=== PATIENT | male | born 1960 | race Caucasian/White ===

== ENCOUNTER 2016-10-23 21:17 | Inpatient (IN) | payer OTHER, MEDICARE ==
[~2016-10-23] VITALS: Ht 170.2 cm; Wt 60.0 kg
[2016-10-23] MEDS ORDERED: SODIUM CHLORIDE 0.9% 1L BAG IV* STA (21:19)
[2016-10-23] MEDS ORDERED: KETOROLAC 30 MG INJ IV STA (21:54)
[2016-10-23] MEDS ORDERED: SIMV20TA97 PO (22:05)
[2016-10-23] MEDS ORDERED: AMLO5TAB4 PO (22:06)
[2016-10-23] MEDS ORDERED: METO50TA16 PO (22:06)
[2016-10-23] MEDS ORDERED: QUET100T25 PO (22:07)
[2016-10-23] MEDS ORDERED: TRAZ150T65 PO (22:08)
[2016-10-23 22:19] LABS: BASOPHILS % 0.1 % (0.0-2.0); EOSINOPHILS # 0.2 10^3/ul (0.0-0.5); EOSINOPHILS % 0.7 % (0.0-7.0); HEMOGLOBIN 10.5 g/dl (14.0-18.0); LYMPHOCYTES % 4.5 % (15.0-51.0); MEAN CORPUSCULAR HEMOGLOBIN 25.2 pg (29.0-33.0); MEAN CORPUSCULAR HGB CONC 32.9 g/dl (32.0-37.0); MEAN CORPUSCULAR VOLUME 76.6 fl (82.0-101.0); MEAN PLATELET VOLUME 10.3 fl (7.4-10.4); MONOCYTE # 1.2 10^3/ul (0.3-0.9); MONOCYTES % 5.2 % (0.0-11.0); NEUTROPHIL # 20.8 10^3/ul (1.6-7.5); NEUTROPHILS % 89.5 % (39.0-77.0); PLATELET COUNT 382 10^3/UL (140-440); RED BLOOD COUNT 4.18 10^6/ul (4.70-6.10); RED CELL DISTRIBUTION WIDTH 18.3 % (11.5-14.5); UNCORRECTED WBC 23.2 10^3/ul (4.8-10.8); WHITE BLOOD COUNT 23.2 10^3/ul (4.8-10.8)
[2016-10-23 22:20] LABS: CONDITION 1; LH ANALYZER COMMENTS 1; SUSPECT 1
[2016-10-23 22:25] LABS: ALBUMIN 3.8 g/dl (3.3-4.9); CHLORIDE 86 mmol/L (97-110); POTASSIUM 3.7 mmol/L (3.5-5.1); SODIUM 132 mmol/L (135-144)
[2016-10-23 22:27] LABS: AMYLASE 36 U/L (11-123)
[2016-10-23 22:28] LABS: ALANINE AMINOTRANSFERASE 50 IU/L (13-69); ALBUMIN/GLOBULIN RATIO 0.76; ALKALINE PHOSPHATASE 220 IU/L (42-121); ANION GAP 26 (8-16); ASPARTATE AMINO TRANSFERASE 57 IU/L (15-46); BILIRUBIN,INDIRECT 0.3 mg/dl (0-1.1); BILIRUBIN,TOTAL 0.3 mg/dl (0.2-1.3); BLOOD UREA NITROGEN 36 mg/dl (7-20); CALCIUM 10.5 mg/dl (8.4-10.2); CARBON DIOXIDE 24 mmol/L (21-31); CREATININE 1.26 mg/dl (0.61-1.24); GLUCOSE 89 mg/dl (70-220); TOTAL PROTEIN 8.8 g/dl (6.1-8.1)
--- NOTE | 2016-10-23 22:30 | RADRPT ---
PROCEDURE: XR Chest. CLINICAL INDICATION: Chest pain TECHNIQUE: Single frontal view of the chest. COMPARISON: No priorchest radiograph. FINDINGS: The lungs are clear. No pleural effusion or pneumothorax. The cardiomediastinal silhouette is unremarkable. Old healed appearing bilateral mid and lower rib fractures are noted. Vascular calcifications of the aorta are present compatible with atherosclerosis. IMPRESSION: No acute air space infiltrates. RPTAT: AADD .Beny Otto MD, MD Date Time Electronically viewed and signed by .Beny Otto MD, MD on 10/23/2016 22:30 .B/
[2016-10-23] MEDS ORDERED: PIPER-TAZO 3.375 GM IV (PMX) 100 ML IVPB ONE (22:35)
[2016-10-23] MEDS ORDERED: VANCOMYCIN 1 GM (PMX) 250 ML IVPB ONE (22:35)
[2016-10-23] MEDS ORDERED: CLINDAMYCIN 900 MG/D5W (PMX) 50 ML IVPB ONE (22:35)
[2016-10-23 22:39] LABS: TROPONIN-I < 0.010 ng/ml (0.00-0.12)
[2016-10-23] MEDS ORDERED: ONDANSETRON 4 MG INJ IV ONE (22:40)
[2016-10-23] MEDS ORDERED: HYDROmorphONE 1 MG/ML SYG IV ONE (22:40)
--- NOTE | 2016-10-23 22:52 | ERA ---
ER Documentation Chief Complaint Date/Time DATE: 10/23/16 TIME: 22:48 Chief Complaint WEAKNESS AND "FLU-RANDY" X 3 WEEKS. GOUT FLARE UP IN FEET, KNEES HPI This is a very pleasant 55-year-old male with a known history of hypertension. The patient indicates that over the past 5 years he has had multiple gouty flareups of his right toe and hands. Over the past 3 weeks he has had significant pain over the right toe bilateral knees bilateral elbows and hands. He states that prior to arrival the pain worsened and he had significant swelling and redness of the right big toe. The patient indicates he has had a tactile fever with shaking and chills. He has had generalized weakness with a decrease in appetite. He denies any chest pain or pressure that radiates to the neck or back or jaw. He has no shortness of breath at rest or exertion. ROS All systems reviewed and are negative except as per history of present illness. Medications Home Meds Reported Medications Trazodone Hcl* (Trazodone Hcl*) 150 Mg Tablet, 150 MG PO QHS, #30 TAB 10/23/16 Quetiapine Fumarate* (Seroquel*) 100 Mg Tablet, 150 MG PO DAILY, #30 TAB 10/23/16 Amlodipine Besylate* (Norvasc*) 5 Mg Tablet, 5 MG PO DAILY, TAB 10/23/16 Metoprolol Succinate* (Toprol XL*) 50 Mg Tab.er.24h, 50 MG PO DAILY, #30 TAB 10/23/16 Simvastatin* (Zocor*) 20 Mg Tablet, 20 MG PO QHS, #30 TAB 10/23/16 Allergies Allergies: Coded Allergies: No Known Allergy (Unverified , 10/23/16) Physical Exam Vitals Vital Signs Date Time Temp Pulse Resp B/P Pulse Ox O2 Delivery O2 Flow Rate FiO2 10/23/16 21:23 98.1 126 20 140/86 98 Physical Exam Constitutional:Well-developed. Well-nourished. HEENT:Normocephalic. Atraumatic.Pupils were equal round reactive to light. Dry mucous membranes.No tonsillar exudates. Neck: No nuchal rigidity. No lymphadenopathy. No posterior cervical spine tenderness or step-offs. Respiratory: Not using accessory muscles of respiration.Lungs were clear to auscultation bilaterally. No rhonchi. No rales. No wheezing. Cardiovascular: Regular rate regular rhythm.No murmurs. No rubs were appreciated.S1, S2 normal. Distal pulses are palpable 2+ bilaterally. GI: Abdomen was soft. Nontender. Non Distended. No pulsatile abdominal masses or bruits. No rebound. No guarding. Bowel sounds were present and normal. Muscle skeletal: Full range of motion of both the upper and lower extremities bilaterally.Normal muscle tone.No assymetrical calf tenderness or swelling. Skin: No petechia, no purpura. No lesions on the palms or the soles of the feet. No maculopapular rash. Significant swelling erythremia warmness over the dorsal aspect of the right big toe. Arthritic changes of the bilateral hands. Bursitis of the left and the right elbow. NEURO: Patient was alert, awake, orientated x3.No facial droop. Gait observed and normal with no ataxia.Speech had regular rate and rhythm. No focal neurological deficits. Result Diagram: 10/23/16219910/23/162199 Results 24 hrs Laboratory Tests Test 10/23/16 22:00 Alanine Aminotransferase (ALT/SGPT) 50IU/L Albumin 3.8g/dl Albumin/Globulin Ratio 0.76 Alkaline Phosphatase 220IU/L Amylase Level 36U/L Anion Gap 26 Aspartate Amino Transf (AST/SGOT) 57IU/L Basophils # 0.010^3/ul Basophils % 0.1% Blood Morphology Comment Blood Urea Nitrogen 36mg/dl Calcium Level 10.5mg/dl Carbon Dioxide Level 24mmol/L Chloride Level 86mmol/L Creatinine 1.26mg/dl Direct Bilirubin 0.00mg/dl Eosinophils # 0.210^3/ul Eosinophils % 0.7% Globulin 5.00g/dl Glucose Level 89mg/dl Hematocrit 32.0% Hemoglobin 10.5g/dl Indirect Bilirubin 0.3mg/dl Lactic Acid Level 2.1mmol/L Lipase 120U/L Lymphocytes # 1.010^3/ul Lymphocytes % 4.5% Mean Corpuscular Hemoglobin 25.2pg Mean Corpuscular Hemoglobin Concent 32.9g/dl Mean Corpuscular Volume 76.6fl Mean Platelet Volume 10.3fl Monocytes # 1.210^3/ul Monocytes % 5.2% Neutrophils # 20.810^3/ul Neutrophils % 89.5% Nucleated Red Blood Cells # 0.010^3/ul Nucleated Red Blood Cells % 0.0/100WBC Platelet Count 21975^3/UL Potassium Level 3.7mmol/L Red Blood Count 4.1810^6/ul Red Cell Distribution Width 18.3% Sodium Level 132mmol/L Total Bilirubin 0.3mg/dl Total Protein 8.8g/dl Troponin I < 0.010ng/ml Uric Acid 14.0mg/dl White Blood Count 23.210^3/ul Current Medications Medications (Trade) Dose Ordered Sig/Joshua Route PRN Reason Start Time Stop Time Status Last Admin Dose Admin Sodium Chloride (NS) 2,170 ml BOLUS OVER 2 HOURS STAT IV* 10/23/16 21:19 10/23/16 21:21 DC 10/23/16 22:03 Ketorolac Tromethamine 30 mg 30 mg ONCE STAT IV 10/23/16 21:54 10/23/16 21:55 DC 10/23/16 22:03 Vancomycin HCl 250 ml @ 125 mls/hr ONCE ONCE IVPB 10/23/16 22:35 10/24/16 00:34 Clindamycin HCl/ Dextrose 50 ml @ 50 mls/hr ONCE ONCE IVPB 10/23/16 22:35 10/23/16 23:34 DC Piperacillin Sod/ Tazobactam Sod (Zosyn 3.375gm/ 100 ml (Pmx)) 100 ml @ 100 mls/hr ONCE ONCE IVPB 10/23/16 22:35 10/23/16 23:34 DC 10/23/16 23:22 Hydromorphone HCl (Dilaudid) 1 mg ONCE ONCE IV 10/23/16 22:40 10/23/16 22:41 DC 10/23/16 23:22 Ondansetron HCl (Zofran Inj) 4 mg ONCE ONCE IV 10/23/16 22:40 10/23/16 22:41 DC 10/23/16 23:22 Ondansetron HCl (Zofran Inj) 4 mg ER BRIDGE PRN IV NAUSEA AND/OR VOMITING 10/24/16 00:00 10/24/16 23:59 Acetaminophen (Tylenol Tab) 650 mg ER BRIDGE PRN PO MILD PAIN/FEVER 10/24/16 00:00 10/24/16 23:59 Procedures/MDM The patient presented to the emergency department with a spreading erythematous superficial infection of the skin and subcutaneous tissues of the right big toe with suspected overlying gout. My differential diagnosis included but was not limited to necrotizing fasciitis, lymphangitis, thrombophlebitis, deep vein thrombosis, allergic reaction, neoplasm, gout or abscess. Predisposing factors of the progressive spread of erythema, warmth, pain and tenderness was considered such as lymphedema, tinea pedis, open wounds, prior trauma or surgery, pre-existing skin lesion (furuncle), retained foreign body, injection drug use or vascular or immune compromise. The patient was placed on antibiotics to cover Staphylococcus aureus, including resistant strains such as community-acquired methicillin-resistant S. aureus. The patient was given IV vancomycin and Zosyn and clindamycin. The patient received IV Toradol as well as morphine and Zofran for analgesic control. The patient's uric acid was elevated at 14 and I did feel the patient' s symptoms were result of gout however cannot rule out septic arthritis which is why the patient was started on broad-spectrum antibiotics as he had leukocytosis. 12 Lead EKG tracing ordered and reviewed by myself showed: Sinus tachycardia 116 bpm and no arrhythmia. TN interval normal. QRS duration normal. No ST segment elevation No ST segment depression. No changes consistent with acute ischemia. The patient's primary care physician is Dr. Rahul Krishnamurthy and Dr. Armstrong who was on-call for Dr. Greenfield indicated to admit the patient to the hospitalist so therefore Dr. Caicedo will be the admitting physician. The patient will be admitted in serious condition to the telemetry service with an anticipated stay of greater than 2 midnights Departure Diagnosis: Primary Impression: Prerenal azotemia Additional Impressions: Gouty arthritis of toe of right foot SIRS (systemic inflammatory response syndrome) Condition: Serious RORY MONIQUE Oct 23, 2016 22:51 I considered further perfusion assessment with CVP measurement, SCVO2, bedside ultrasound volume assessment, passive leg raise, trial of further fluid bolus. And preceded with [XOXOXO] Accepting Care Team: Current data and ongoing care discussed. Time: Time of admission Primary Provider: [XOXOXO] Consulting: [XOXOXO] Outstanding Data: none RORY MONIQUE Oct 23, 2016 22:51
[2016-10-24] VITALS (14 sets, daily range): BP systolic 124–150; BP diastolic 67–92; PULSE 66–101; RESP 18–20; TEMP 98; Ht 170.2 cm; Wt 60.0 kg
[2016-10-24] MEDS ORDERED: ONDANSETRON 4 MG INJ IV PRN
[2016-10-24] MEDS ORDERED: SOD CHLORIDE 0.9% 1,000 ML IV SCH (00:46)
--- NOTE | 2016-10-24 00:46 | HP ---
Date/Time of Note Date/Time of Note DATE: 10/24/16 TIME: 00:31 Assessment/Plan VTE Prophylaxis VTE Prophylaxis Intervention: heparin Assessment/Plan Assessment/Plan 55 yo male with a past medical history of Gout (untreated), essential hypertension, depression, dyslipidemia, who presents with generalized malaise and body aches. 1. Gout flare - 2/2 to renal insufficiency will give IV glucocorticoids, consult ortho, monitor acute changes, hold off on allopurinol/colchicine/ indomethacin 2. Sepsis 2/2 to septic arthritis - broad spectrum antibiotics - check cultures 3. Acute renal failure - continue with IVF, renally adjust medications, avoid nephrotoxins 4. Microcytic anemia- chronic - check iron panel, stool occult blood 5. Essential hypertension - continue with home medications 6. Depression - continue with SSRI 7. Dyslipidemia - continue with statin 8. GI ppx - pepcid 9. DVT ppx - heparin answered all of his questions. as per clinical course. this history and physical took greater then 45 minutes to complete HPI/ROS Admit Date/Time Admit Date/Time 10/24/2016, 12:31 am Hx of Present Illness 55 yo male with a past medical history of Gout (untreated), essential hypertension, depression, dyslipidemia, who presents with generalized malaise and body aches. He states that he has been having flu-like symptoms over the past week. He also has been having joint pain that progressively has gotten worse. His right greater toe has enlarged and not improved. He complains of fevers/chills, decreased ambulation and fatigue. Otherwise denies any sick contacts, recent travel, chest pain, shortness of breath, headaches, urinary/ bowel irregularities, nausea/vomiting/diarrhea/constipation or other constitutional symptoms. Patient is a poor historian, stating that he has never been treated for gout. ED course: narcotics, IV antibiotics ROS 14 point review of systems completed, please refer to HPI for any positive findings PMH/Family/Social Past Medical History Gout, depression Medical History: high cholesterol, hypertension Past Surgical History Past Surgical Hx: no surgical history Family History Significant Family History: hypertension Social History Alcohol Use: sober Smoking Status: Former smoker Drug Use: none Exam/Review of Systems Vital Signs Vitals Vital Signs Date Time Temp Pulse Resp B/P Pulse Ox O2 Delivery O2 Flow Rate FiO2 10/23/16 21:23 98.1 126 20 140/86 98 Exam Exam Gen Briana: moderate distress 2/2 to foot pain, AAOx4 HEENT: NC/AT, PERRLA, EOMI, no pharyngeal erythema, no tonsillar exudates, no lymphadenopathy, no JVD, no carotid bruits NECK: supple, no thyromegaly THORAX: symmetrical, no obvious deformities CV: S1S2, RRR, no M/G/R Lungs: CTAB no W/C/R/R Abd: soft, NT/ND, +BS, no rebound, no guarding, neg HSM EXT: scattered tophi extensors diffuse, arthritic -gouty changes bilateral extremities, right greater toe erythematous tophi, no active drainage noted Neuro: CN II-XII grossly intact, no focal deficits Psych: fair mood and affect Skin: see extremities Labs Result Diagram: 10/23/16219910/23/162199 Medications Medications Current Medications Vancomycin HCl (Vancocin) 250 ml @ 125 mls/hr ONCE ONCE IVPB ; Start 10/23/16 at 22:35; Stop 10/24/16 at 00:34 Procedures Procedures CXR IMPRESSION: No acute air space infiltrates. CHATO AMAYA MD Oct 24, 2016 00:41
--- NOTE | 2016-10-24 00:46 | RADRPT ---
PROCEDURE: XR Foot. CLINICAL INDICATION: foot pain over right big toe TECHNIQUE: AP, lateral and oblique views of the right foot was obtained. The images were reviewed on a PACS workstation. COMPARISON: None. FINDINGS: There are irregular erosive changes involving the first digit metatarsal phalangeal joints, interpha langeal joint, and tarsometatarsal articulation. There are adjacent soft tissue nodules, with small areas of calcification, most likely consistent with tophi. There is no visualized acute fracture or dislocation. There are chronic deformities of the third and fourth proximal metatarsals. There is an erosion of the second digit proximal phalanx, adjacent to the metatarsal phalangeal joint. IMPRESSION: Erosive arthritis involving the first digit and second digit metatarsal phalangeal joints, and first tarsometatarsal and interphalangeal joints. Adjacent soft tissue nodules most likely consistent wi th tophi. Findings appear consistent with gout. RPTAT: HBST .Jean Pierre Ponce MD, MD Date Time Electronically viewed and signed by .Jean Pierre Ponce MD, on 10/24/2016 00:46 .T/
[2016-10-24] MEDS ORDERED: DOCUSATE SODIUM 100 MG CAP PO PRN (01:00)
[2016-10-24] MEDS ORDERED: ACETAMINOPHEN 325 MG TAB PO PRN ×2 (01:00)
[2016-10-24] MEDS ORDERED: NACL 0.9% 3 ML SYG IV SCH (01:00)
[2016-10-24] MEDS ORDERED: VANCOMYCIN IV PER PHARMACY XX SCH (01:00)
[2016-10-24 01:03] LABS: ADD UMIC YES; URINE BLOOD (Dip) TRACE (NEGATIVE); URINE COLOR LT. YELLOW (YELLOW); URINE GLUCOSE (Dip) NEGATIVE (NEGATIVE); URINE KETONES (Dip) 15 (NEGATIVE); URINE LEUKOCYTE ESTERASE (Dip) NEGATIVE (NEGATIVE); URINE NITRITE (Dip) NEGATIVE (NEGATIVE); URINE TOTAL PROTEIN (Dip) NEGATIVE (NEGATIVE); URINE UROBILINOGEN (Dip) 1.0 E.U./dL (0.1-1.0)
[2016-10-24 01:10] LABS: URINE BILIRUBIN (Dip) NEGATIVE (NEGATIVE)
[2016-10-24 01:14] LABS: MAGNESIUM 1.6 mg/dl (1.7-2.5)
[2016-10-24 01:15] LABS: CHOL/HDL RATIO 12.1 RATIO
[2016-10-24 01:18] LABS: SQUAMOUS EPITHELIAL CELL,UR FEW; URINE RBCS 0-2 /HPF (0)
[2016-10-24 01:19] LABS: BACTERIA,URINE OCCASIONAL
[2016-10-24 01:46] LABS: THYROID STIMULATING HORMONE 1.58 MIU/L (0.465-4.680)
[2016-10-24] MEDS: morphine 2 MG INJ IV PRN (04:35)
[2016-10-24] MEDS: PIPER-TAZO 2.25 GM (PMX) 50 ML IVPB SCH ×3 (05:46→17:43)
[2016-10-24] MEDS: METHYLPREDNISOLONE 125 MG INJ IV SCH ×2 (05:46→14:02)
[2016-10-24] MEDS: METOPROLOL (XL) 50 MG TAB PO SCH (09:38)
[2016-10-24] MEDS: HYDROCODONE/APAP (5/325) TAB PO PRN (09:39)
[2016-10-24] MEDS: QUETIAPINE 100 MG TAB PO SCH (09:39)
[2016-10-24] MEDS: AMLODIPINE 5 MG TAB PO SCH (09:40)
[2016-10-24] MEDS: HEPARIN 5,000 UNIT/0.5 ML SYG SC SCH ×2 (09:47→20:58)
[2016-10-24] MEDS ORDERED: VANCOMYCIN 1 GM in NS 250 ML IVPB SCH (10:00)
[2016-10-24] MEDS: FAMOTIDINE 20 MG INJ IV SCH ×2 (14:02→20:55)
--- NOTE | 2016-10-24 14:21 | PN ---
Date/Time of Note Date/Time of Note DATE: 10/24/16 TIME: 14:07 Assessment/Plan VTE Prophylaxis VTE Prophylaxis Intervention: heparin Lines/Catheters [facility] Peripheral IV Urinary Cath still in place: No Assessment/Plan Assessment/Plan 1. Gout flare with diffuse gouty arthritis, start on indocin, follow up kidney function 2. acute bronchitis, on zosyn, consider to change to levaquin 3. Acute renal failure - continue with IVF, follow up with BMP 4. Microcytic anemia- chronic - check iron panel, stool occult blood 5. Essential hypertension - stable 6. Depression - continue with SSRI 7. Dyslipidemia - continue with statin 8. GI ppx - pepcid Subjective 24 Hr Interval Summary Free Text/Dictation joint pain afebrile cough with yellowish sputum Exam/Review of Systems Vital Signs Vitals Vital Signs Date Time Temp Pulse Resp B/P Pulse Ox O2 Delivery O2 Flow Rate FiO2 10/24/16 12:03 89 10/24/16 11:28 98.1 20 145/92 100 10/24/16 02:57 Nasal Cannula 2.0 Intake and Output 10/23/16 10/23/16 10/24/16 15:00 23:00 07:00 Intake Total 500 ml Output Total 550 ml Balance -50 ml Exam Constitutional: oriented, well developed Head: atraumatic, normocephalic Eyes: EOMI, PERRL, nl conjunctiva, nl lids, nl sclera ENMT: mucosa pink and moist, nl external ears & nose, nl lips & teeth, nl nasal mucosa & septum Neck: non-tender, supple Respiratory: clear to auscultation, normal air movement Cardiovascular: nl pulses, regular rate and rhythm Gastrointestinal: nl liver, spleen, non-tender, soft Musculoskeletal: other (diffuse joint deformity ) Neurological: VELVET CUTTER II-XII intact, nl mental status, nl speech, nl strength Lymph: nl lymph nodes Results Result Diagram: 10/23/16219910/23/162199 Results 24 hrs Laboratory Tests Test 10/23/16 21:50 10/23/16 22:00 10/23/16 23:50 10/24/16 00:40 Cholesterol Level 109 Cholesterol/HDL Ratio 12.1 HDL Cholesterol 9 L Hemoglobin A1c 5.2 LDL Cholesterol, Calculated 70 Magnesium Level 1.6 L Thyroid Stimulating Hormone (TSH) 1.580 Triglycerides Level 150 H Alanine Aminotransferase (ALT/SGPT) 50 Albumin 3.8 Albumin/Globulin Ratio 0.76 Alkaline Phosphatase 220 H Amylase Level 36 Anion Gap 26 H Aspartate Amino Transf (AST/SGOT) 57 H Basophils # 0.0 Basophils % 0.1 Blood Morphology Comment Blood Urea Nitrogen 36 H Calcium Level 10.5 H Carbon Dioxide Level 24 Chloride Level 86 L Creatinine 1.26 H Direct Bilirubin 0.00 Eosinophils # 0.2 Eosinophils % 0.7 Globulin 5.00 H Glucose Level 89 Hematocrit 32.0 L Hemoglobin 10.5 L Indirect Bilirubin 0.3 Lactic Acid Level 2.1 2.1 Lipase 120 Lymphocytes # 1.0 Lymphocytes % 4.5 L Mean Corpuscular Hemoglobin 25.2 L Mean Corpuscular Hemoglobin Concent 32.9 Mean Corpuscular Volume 76.6 L Mean Platelet Volume 10.3 Monocytes # 1.2 H Monocytes % 5.2 Neutrophils # 20.8 H Neutrophils % 89.5 H Nucleated Red Blood Cells # 0.0 Nucleated Red Blood Cells % 0.0 Platelet Count 382 Potassium Level 3.7 Red Blood Count 4.18 L Red Cell Distribution Width 18.3 H Sodium Level 132 L Total Bilirubin 0.3 Total Protein 8.8 H Troponin I < 0.010 Uric Acid 14.0 H White Blood Count 23.2 H Urine Amorphous Urates OCCASIONAL Urine Bacteria OCCASIONAL Urine Bilirubin NEGATIVE Urine Clarity CLEAR Urine Color LT. YELLOW Urine Glucose NEGATIVE Urine Granular Casts OCCASIONAL Urine Hemoglobin TRACE Urine Ketones 15 Urine Leukocyte Esterase NEGATIVE Urine Microscopic RBC 0-2 Urine Microscopic WBC 0-2 Urine Nitrite NEGATIVE Urine Specific Kirksey 1.010 Urine Squamous Epithelial Cells FEW Urine Total Protein NEGATIVE Urine Urobilinogen 1.0 E.U./dL Urine pH 6.0 Test 10/24/16 01:20 Lactic Acid Level 1.2 Medications Medications Current Medications Sodium Chloride (NS) 1,000 ml @ 75 mls/hr [id number] IV Last administered on 10/24t 04:29; Admin Dose 75 MLS/HR; Start 10/24/16 at 00:46 Ondansetron HCl (Zofran Inj) 4 mg Q6H PRN IV NAUSEA AND/OR VOMITING; Start 09/28 at 01:00 Acetaminophen (Tylenol Tab) 650 mg Q6H PRN PO PAIN LEVEL 1-3 OR FEVER; Start at 01:00 Acetaminophen/ Hydrocodone Bitart ([place] (5/325)) 1 tab Q6H PRN PO MODERATE PAIN LEVEL 4-6 Last administered on 10/24/16 09:39; Admin Dose 1 TAB; Start 09/28 at 01:00 Morphine Sulfate (morphine) 2 mg Q4H PRN IV SEVERE PAIN LEVEL 7-10 Last administered on 10/24/16 04:35; Admin Dose 2 MG; Start 10/24/16 at 01:00 Docusate Sodium (Colace) 100 mg Q12H PRN PO CONSTIPATION; Start 10/24/16 at 01: 00 Famotidine (Pepcid Iv) 20 mg Q12 IV Last administered on 10/24/16 14:02; Admin Dose 20 MG; Start 10/24/16 at 09:00 Heparin Sodium (Porcine) (Heparin (5000 Units/0.5 ml)) 5,000 unit Q12 SC Last administered on 10/24/16 09:47; Admin Dose 5,000 UNIT; Start 10/24/16 at 09:00 Methylprednisolone Sodium Succinate 60 mg 60 mg Q6 IV Last administered on 10/24 14:02; Admin Dose 60 MG; Start 10/24/16 at 06:00 Piperacillin Sod/ Tazobactam Sod (Zosyn 2.25gm/ 50ml (Pmx)) 50 ml @ 100 mls/hr Q6 IVPB Last administered on 10/24/16 14:02; Admin Dose 100 MLS/HR; Start 09/28 at 06:00 Amlodipine Besylate (Norvasc) 5 mg DAILY PO Last administered on 10/24/16 09: 40; Admin Dose 5 MG; Start 10/24/16 at 09:00 Metoprolol Succinate (Toprol Xl) 50 mg DAILY PO Last administered on 10/24/16 09:38; Admin Dose 50 MG; Start 10/24/16 at 09:00 Quetiapine Fumarate (Seroquel) 150 mg DAILY PO Last administered on 10/24/16 09:39; Admin Dose 150 MG; Start 10/24/16 at 09:00 Trazodone HCl (Desyrel) 150 mg QHS PO ; Start 10/24/16 at 21:00 Atorvastatin Calcium 10 mg 10 mg DAILY@21 PO ; Start 10/24/16 at 21:00 Vancomycin HCl (Vancocin) 250 ml @ 125 mls/hr Q12H IVPB Last administered on t 09:42; Admin Dose 125 MLS/HR; Start 10/24/16 at 10:00 Miscellaneous Information (*Rx Drug Level Order Reminder*) VANCO TR LEVEL PRIOR... ONCE ONCE XX ; Start 10/25/16 at 09:00; Stop 10/25/16 at 09:01 BILLIE MULLER MD Oct 24, 2016 14:21
[2016-10-24] MEDS: POTASSIUM CHLORIDE 10 MEQ in SOD CHLORIDE 0.45% 1,000 ML IV SCH (17:43)
[2016-10-24] MEDS: METHYLPREDNISOLONE 40 MG INJ IV SCH (17:43)
[2016-10-24] MEDS: INDOMETHACIN 25 MG PO SCH ×2 (17:43→20:55)
[2016-10-24] MEDS ORDERED: METHYLPREDNISOLONE 40 MG INJ IV SCH (18:00)
[2016-10-24] MEDS: traZODone 50 MG TAB PO SCH (20:55)
[2016-10-24] MEDS: ATORVASTATIN 10 MG TAB PO SCH (20:56)
[2016-10-25] VITALS (11 sets, daily range): BP systolic 112–135; BP diastolic 70–92; PULSE 59–89; RESP 17–20
[2016-10-25] MEDS: POTASSIUM CHLORIDE 10 MEQ in SOD CHLORIDE 0.45% 1,000 ML IV SCH ×3 (00:33→16:40)
[2016-10-25] MEDS: METHYLPREDNISOLONE 40 MG INJ IV SCH ×3 (01:00→12:20)
[2016-10-25] MEDS: PIPER-TAZO 2.25 GM (PMX) 50 ML IVPB SCH ×3 (01:00→12:21)
[2016-10-25] MEDS: ONDANSETRON 4 MG INJ IV PRN ×2 (05:52→20:37)
[2016-10-25] MEDS: HYDROCODONE/APAP (5/325) TAB PO PRN (05:53)
[2016-10-25 06:21] LABS: HEMATOCRIT 25.9 % (42.0-52.0); HEMOGLOBIN 8.4 g/dl (14.0-18.0); LYMPHOCYTES # 0.9 10^3/ul (0.8-2.9); LYMPHOCYTES % 5.1 % (15.0-51.0); MEAN CORPUSCULAR HEMOGLOBIN 25.4 pg (29.0-33.0); MEAN CORPUSCULAR HGB CONC 32.6 g/dl (32.0-37.0); MEAN CORPUSCULAR VOLUME 77.9 fl (82.0-101.0); MEAN PLATELET VOLUME 9.9 fl (7.4-10.4); MONOCYTE # 0.5 10^3/ul (0.3-0.9); MONOCYTES % 2.6 % (0.0-11.0); NEUTROPHIL # 16.2 10^3/ul (1.6-7.5); NEUTROPHILS % 92.3 % (39.0-77.0); PLATELET COUNT 318 10^3/UL (140-440); RED BLOOD COUNT 3.32 10^6/ul (4.70-6.10); RED CELL DISTRIBUTION WIDTH 17.5 % (11.5-14.5); UNCORRECTED WBC 17.6 10^3/ul (4.8-10.8); WHITE BLOOD COUNT 17.6 10^3/ul (4.8-10.8)
[2016-10-25 06:31] LABS: CONDITION 1; LH ANALYZER COMMENTS 1; SUSPECT 1
[2016-10-25 06:44] LABS: POTASSIUM 3.9 mmol/L (3.5-5.1)
[2016-10-25 06:47] LABS: CREATININE 2.78 mg/dl (0.61-1.24)
[2016-10-25 06:48] LABS: CALCIUM 9.2 mg/dl (8.4-10.2)
[2016-10-25] MEDS: FAMOTIDINE 20 MG INJ IV SCH (10:17)
[2016-10-25] MEDS: QUETIAPINE 100 MG TAB PO SCH (10:18)
[2016-10-25] MEDS: AMLODIPINE 5 MG TAB PO SCH (10:19)
[2016-10-25] MEDS: INDOMETHACIN 25 MG PO SCH (10:19)
[2016-10-25] MEDS: METOPROLOL (XL) 50 MG TAB PO SCH (10:20)
[2016-10-25] MEDS: HEPARIN 5,000 UNIT/0.5 ML SYG SC SCH ×2 (11:17→20:59)
--- NOTE | 2016-10-25 12:38 | PN ---
Date/Time of Note Date/Time of Note DATE: 10/25/16 TIME: 12:33 Assessment/Plan VTE Prophylaxis VTE Prophylaxis Intervention: SCD's Lines/Catheters IV Catheter Type (from Nrs): Peripheral IV Urinary Cath still in place: No Assessment/Plan Assessment/Plan 1. Gout flare with diffuse gouty arthritis, start on small dosage of indocin that improves his joint pain but worsens renal function, stop indocin, continue on steroid(switch to prednisone today) 2. acute bronchitis, on levaquin 3. Acute renal failure due to gout, continue with IVF, follow up with BMP 4. Microcytic anemia- chronic 5. Essential hypertension - stable 6. Depression - continue with SSRI 7. Dyslipidemia - continue with statin 8. GI ppx - pepcid Subjective 24 Hr Interval Summary Free Text/Dictation feels better, less joint pain Exam/Review of Systems Vital Signs Vitals Vital Signs Date Time Temp Pulse Resp B/P Pulse Ox O2 Delivery O2 Flow Rate FiO2 10/25/16 11:50 97.5 61 17 126/81 99 10/25/16 08:00 Nasal Cannula 2.0 Intake and Output 10/24/16 10/24/16 10/25/16 15:00 23:00 07:00 Intake Total 460 ml 1400 ml Output Total 650 ml 500 ml Balance -190 ml 900 ml Exam Constitutional: alert, oriented, well developed Psych: nl mood/affect, no complaints Head: atraumatic, normocephalic Eyes: EOMI, PERRL, nl conjunctiva, nl lids, nl sclera ENMT: mucosa pink and moist, nl external ears & nose, nl lips & teeth, nl nasal mucosa & septum Neck: non-tender, supple Respiratory: clear to auscultation, normal air movement Cardiovascular: nl pulses, regular rate and rhythm Gastrointestinal: nl liver, spleen, non-tender, soft Musculoskeletal: other (less redness on right big toe lesion) Extremities: normal pulses, other (deformities on joints of hands) Skin: nl turgor, rash or lesions Lymph: nl lymph nodes Results Result Diagram: 10/25/16 0535 10/25/16 0530 Results 24 hrs Laboratory Tests Test 10/25/16 05:30 10/25/16 05:35 10/25/16 08:40 Anion Gap 20 H Blood Urea Nitrogen 46 H Calcium Level 9.2 Carbon Dioxide Level 21 Chloride Level 100 # Creatinine 2.78 #H Glucose Level 160 Potassium Level 3.9 Sodium Level 137 Basophils # 0.0 Basophils % 0.0 Blood Morphology Comment Eosinophils # 0.0 Eosinophils % 0.0 Hematocrit 25.9 L Hemoglobin 8.4 L Lymphocytes # 0.9 Lymphocytes % 5.1 L Mean Corpuscular Hemoglobin 25.4 L Mean Corpuscular Hemoglobin Concent 32.6 Mean Corpuscular Volume 77.9 L Mean Platelet Volume 9.9 Monocytes # 0.5 Monocytes % 2.6 Neutrophils # 16.2 H Neutrophils % 92.3 H Nucleated Red Blood Cells # 0.0 Nucleated Red Blood Cells % 0.0 Platelet Count 318 Red Blood Count 3.32 #L Red Cell Distribution Width 17.5 H White Blood Count 17.6 #H Vancomycin Level Trough 16.5 Medications Medications Current Medications Ondansetron HCl (Zofran Inj) 4 mg Q6H PRN IV NAUSEA AND/OR VOMITING Last administered on 10/25/16 05:52; Admin Dose 4 MG; Start 10/24/16 at 01:00 Acetaminophen (Tylenol Tab) 650 mg Q6H PRN PO PAIN LEVEL 1-3 OR FEVER; Start at 01:00 Acetaminophen/ Hydrocodone Bitart ([place] (5/325)) 1 tab Q6H PRN PO MODERATE PAIN LEVEL 4-6 Last administered on 10/25/16 05:53; Admin Dose 1 TAB; Start 09/28 at 01:00 Morphine Sulfate (morphine) 2 mg Q4H PRN IV SEVERE PAIN LEVEL 7-10 Last administered on 10/24/16 04:35; Admin Dose 2 MG; Start 10/24/16 at 01:00 Docusate Sodium (Colace) 100 mg Q12H PRN PO CONSTIPATION; Start 10/24/16 at 01: 00 Famotidine (Pepcid Iv) 20 mg Q12 IV Last administered on 10/25/16 10:17; Admin Dose 20 MG; Start 10/24/16 at 09:00 Heparin Sodium (Porcine) 5000 unit 5,000 unit Q12 SC Last administered on 11:17; Admin Dose 5,000 UNIT; Start 10/24/16 at 09:00 Piperacillin Sod/ Tazobactam Sod (Zosyn 2.25gm/ 50ml (Pmx)) 50 ml @ 100 mls/hr Q6 IVPB Last administered on 10/25/16 12:21; Admin Dose 100 MLS/HR; Start 09/28 at 06:00 Amlodipine Besylate (Norvasc) 5 mg DAILY PO Last administered on 10/25/16 10: 19; Admin Dose 5 MG; Start 10/24/16 at 09:00 Metoprolol Succinate (Toprol Xl) 50 mg DAILY PO Last administered on 10/25/16 10:20; Admin Dose 50 MG; Start 10/24/16 at 09:00 Quetiapine Fumarate (Seroquel) 150 mg DAILY PO Last administered on 10/25/16 10:18; Admin Dose 150 MG; Start 10/24/16 at 09:00 Trazodone HCl (Desyrel) 150 mg QHS PO Last administered on 10/24/16 20:55; Admin Dose 150 MG; Start 10/24/16 at 21:00 Atorvastatin Calcium (Lipitor) 10 mg DAILY@21 PO Last administered on 20:56; Admin Dose 10 MG; Start 10/24/16 at 21:00 Methylprednisolone Sodium Succinate 20 mg 20 mg Q6 IV Last administered on 10/25 12:20; Admin Dose 20 MG; Start 10/24/16 at 18:00 Potassium Chloride/Sodium Chloride (KCl/1/2 NS) 1,005 ml @ 100 mls/hr Q10H3M IV Last administered on 10/25/16 05:55; Admin Dose 100 MLS/HR; Start 10/24/16 at 14:30 BILLIE MULLER MD Oct 25, 2016 12:38
[2016-10-25] MEDS: LEVOFLOXACIN 250 MG TAB NGT SCH (15:16)
[2016-10-25] MEDS: predniSONE 20 MG TAB PO SCH (15:16)
[2016-10-25] MEDS: ATORVASTATIN 10 MG TAB PO SCH (20:35)
[2016-10-25] MEDS: traZODone 50 MG TAB PO SCH (20:35)
[2016-10-25] MEDS: morphine 2 MG INJ IV PRN (20:40)
[2016-10-25] MEDS: ZOLPIDEM 5 MG TAB PO PRN (22:38)
[2016-10-26] VITALS (12 sets, daily range): BP systolic 121–143; BP diastolic 68–83; PULSE 61–123; RESP 15–20
[2016-10-26] MEDS: LEVOFLOXACIN 250 MG TAB NGT SCH (05:19)
[2016-10-26] MEDS: HYDROCODONE/APAP (5/325) TAB PO PRN ×2 (05:19→15:47)
[2016-10-26] MEDS: POTASSIUM CHLORIDE 10 MEQ in SOD CHLORIDE 0.45% 1,000 ML IV SCH (05:20)
[2016-10-26 06:50] LABS: HEMATOCRIT 26.5 % (42.0-52.0); HEMOGLOBIN 8.5 g/dl (14.0-18.0); LYMPHOCYTES # 1.1 10^3/ul (0.8-2.9); LYMPHOCYTES % 5.2 % (15.0-51.0); MEAN CORPUSCULAR HEMOGLOBIN 25.2 pg (29.0-33.0); MEAN CORPUSCULAR HGB CONC 31.9 g/dl (32.0-37.0); MEAN CORPUSCULAR VOLUME 78.8 fl (82.0-101.0); MEAN PLATELET VOLUME 10.4 fl (7.4-10.4); MONOCYTE # 0.7 10^3/ul (0.3-0.9); MONOCYTES % 3.1 % (0.0-11.0); NEUTROPHIL # 19.4 10^3/ul (1.6-7.5); NEUTROPHILS % 91.7 % (39.0-77.0); PLATELET COUNT 341 10^3/UL (140-440); RED BLOOD COUNT 3.37 10^6/ul (4.70-6.10); RED CELL DISTRIBUTION WIDTH 18.9 % (11.5-14.5); UNCORRECTED WBC 21.2 10^3/ul (4.8-10.8); WHITE BLOOD COUNT 21.2 10^3/ul (4.8-10.8)
[2016-10-26 06:52] LABS: POTASSIUM 4.1 mmol/L (3.5-5.1)
[2016-10-26 06:54] LABS: CREATININE 3.57 mg/dl (0.61-1.24)
[2016-10-26 06:56] LABS: CALCIUM 9.2 mg/dl (8.4-10.2)
[2016-10-26 07:25] LABS: CONDITION 1; LH ANALYZER COMMENTS 1
[2016-10-26] MEDS: QUETIAPINE 100 MG TAB PO SCH (08:45)
[2016-10-26] MEDS: AMLODIPINE 5 MG TAB PO SCH (08:45)
[2016-10-26] MEDS: predniSONE 20 MG TAB PO SCH (08:47)
[2016-10-26] MEDS: FAMOTIDINE 20 MG TAB PO SCH (08:48)
[2016-10-26] MEDS: METOPROLOL (XL) 50 MG TAB PO SCH (08:49)
[2016-10-26] MEDS: HEPARIN 5,000 UNIT/0.5 ML SYG SC SCH ×2 (08:52→21:14)
[2016-10-26] MEDS: morphine 2 MG INJ IV PRN ×2 (08:53→20:42)
[2016-10-26 10:30] LABS: HYPOCHROMASIA 1+; MICROCYTOSIS 1+
[2016-10-26 10:31] LABS: ANISOCYTOSIS 1+; PLATELET ESTIMATE PLT APPEAR ADEQUATE
[2016-10-26] MEDS ORDERED: ONDANSETRON 4 MG INJ IV PRN (11:30)
[2016-10-26] MEDS: ONDANSETRON 4 MG INJ IV PRN ×2 (11:55→20:42)
[2016-10-26] MEDS: SOD CHLORIDE 0.9% 1,000 ML IV SCH ×2 (13:27→22:22)
[2016-10-26 14:02] LABS: ADD UMIC YES; URINE BILIRUBIN (Dip) NEGATIVE (NEGATIVE); URINE BLOOD (Dip) 3+ (NEGATIVE); URINE COLOR LT. YELLOW (YELLOW); URINE GLUCOSE (Dip) NEGATIVE (NEGATIVE); URINE KETONES (Dip) NEGATIVE (NEGATIVE); URINE LEUKOCYTE ESTERASE (Dip) NEGATIVE (NEGATIVE); URINE NITRITE (Dip) NEGATIVE (NEGATIVE); URINE TOTAL PROTEIN (Dip) NEGATIVE (NEGATIVE); URINE UROBILINOGEN (Dip) 0.2 E.U./dL (0.1-1.0)
[2016-10-26] MEDS ORDERED: SOD CHLORIDE 0.9% 500 ML IV ONE (14:30)
--- NOTE | 2016-10-26 14:39 | CONS ---
DATE OF ADMISSION: 10/23/2016 DATE OF CONSULTATION: 10/26/2016 TYPE OF CONSULTATION: Nephrology REASON FOR CONSULTATION: Acute kidney injury. REQUESTING PHYSICIAN: Jaime Caceres MD HISTORY OF PRESENT ILLNESS: This is a 55-year-old male with a past medical history of gout, history of hypertension, depression, dyslipidemia, who presented to [facility] with gener al complaints of malaise and weakness. The patient states that over the past several days he was lozano ving general body aches as well as what he describes as a gouty flare in his toe. The patient state s he has been taking copious amounts of NSAIDs for the pain, but without improvement. He also compl ained of fevers, chills. As a result, he came into the emergency room. Upon arrival, the patient h ad laboratories drawn, which showed an elevated white count of 23,000. The patient also had elevate d BUN and creatinine of 1.26 mg/dL. In the emergency room, the patient was given 1 dose of Toradol as well as IV antibiotics and admitted to telemetry for continued care. While on telemetry, the pat ient's was also given indomethacin for his gouty flare and continued on broad-spectrum antibiotics. In terms of the patient's renal history, the patient states that he has underlying chronic kidney di sease, but does not know his baseline renal function. The patient's renal function over the course of 48 hours has declined with a creatinine increasing from 1.26 to 3.57 mg/dL. During this time, th e patient has been receiving NSAIDs. There have been no significant hemodynamic fluctuations. The patient has also been on oral Levaquin. There have been no rashes, no frothy urine, no dysuria, hem aturia or hematochezia. PAST MEDICAL HISTORY: As stated above, history of chronic kidney disease, history of gout, history of depression, hypertension, dyslipidemia. PAST SURGICAL HISTORY: None. ALLERGIES: NONE. FAMILY HISTORY: No family history of kidney disease or heart disease. SOCIAL HISTORY: Positive alcohol and tobacco use. REVIEW OF SYSTEMS: A 14-point review of systems was conducted. Pertinent positives as stated in HP I, otherwise negative. MEDICATIONS: The patient's medications have been reviewed. PHYSICAL EXAMINATION: VITAL SIGNS: Blood pressure 125/70, respirations 20, pulse 90, temperature is 98.4. I's and O's 1. 8 liters in, 1.4 liters out. HEENT: Head is normocephalic. NECK: Supple. HEART: Regular rate. LUNGS: Show diminished breath sounds at the bases. ABDOMEN: Soft, nontender to palpation. No rebound or guarding. EXTREMITIES: Negative for clubbing, cyanosis. No edema. DERMATOLOGIC: No rashes. MUSCULOSKELETAL: The patient has noted deformities of his right toe with noted tophi on his t oes. NEUROLOGIC: No focal deficits. LABORATORY DATA: Today shows sodium 137, potassium 4.1, chloride 99, BUN 62, creatinine 3.57. Whit e count 21.2, hemoglobin 8.5, hematocrit 26.5, platelet count 345. The patient's urinalysis shows p ositive granular casts, bacteria and amorphous urates. ASSESSMENT AND PLAN: This is a 55-year-old male who presents with: 1. Nonoliguric acute kidney injury on top of chronic kidney disease with unknown baseline creatinin e. Etiology of acute kidney injury is secondary to acute tubular necrosis, likely from recent NSAID use. The patient's urinalysis shows coarse granular casts consistent with tubular injury. Otherwi se, bland urinary sediment. Plan at this point is to check a renal ultrasound to rule out obstructi on, although suspicion is low. We will repeat urinalysis, urine electrolytes and quantify any prote inuria by checking a microalbumin-creatinine ratio. Would recommend to avoid all NSAIDs, FARRUKH inhibi tors or ARBs and contrast during the hospital course. Would continue gentle IV hydration. Otherwi se, continue supportive care, renally dose meds, avoid nephrotoxins. The patient is likely in an in jury phase of acute tubular necrosis. There is no overt uremic signs or symptoms. No immediate nee d for renal replacement therapy. Given patient's elevated uric acid and urate crystals in the urina ry analysis, possible interstitial nephritis is also a consideration; however, patient has no pyuria or WBC casts. We will also check urine eosinophils. 2. Anemia of chronic disease. Continue to monitor hemoglobin and hematocrit levels. 3. Mineral bone disorder. We will check PTH and vitamin D25 level. 4. Acute gouty flare. The patient with markedly elevated uric acid levels. Continue prednisone. We will continue to monitor closely. 5. Bronchitis. Continue antibiotic therapy. Follow up with Pulmonary. 6. Hypertension. Blood pressure stable. Continue to monitor. 7. Depression. Continue SSRI. Thank you, Dr. Caceres, for this interesting consultation. It will be a pleasure to follow the jerrica ent with you throughout the hospital course. Dictated By: HERO LI/FARRAH Conf#: [id number] DID#: [id number]
[2016-10-26 14:42] LABS: URINE RBCS 25-50 /HPF (0)
[2016-10-26 14:43] LABS: BACTERIA,URINE OCCASIONAL
--- NOTE | 2016-10-26 15:00 | PN ---
DATE: SUBJECTIVE: The patient is doing okay, still has tachycardia and leukocytosis. He states his breath ing is okay. Denies any fevers, chills, although still continuing Levaquin. PHYSICAL EXAMINATION: VITAL SIGNS: Temperature 98, pulse is 120, blood pressure 125/70, O2 saturation 96% on 2 L nasal ca nnula. NECK: Supple. No JVD or lymphadenopathy. CARDIAC EXAM: S1, S2. No added sounds or murmurs. CHEST: Diminished air entry bilaterally. No rales or wheezes. ABDOMEN: Soft, nontender. No guarding or rebound. EXTREMITIES: No cyanosis, clubbing or edema. NEUROLOGIC: Grossly intact. No focal deficits. He has gouty tophi of the lower extremities and on his hands. IMPRESSION AND PLAN: 1. Sinus tachycardia, unclear etiology, possibly secondary to underlying infection. 2. Leukocytosis, unclear source. The patient is currently on Levaquin. 3. Possible flare of underlying gout. The patient is currently on prednisone. Hold off on nonster oidals secondary to worsening function. 4. Worsening renal insufficiency, likely secondary to nonsteroidals in a patient with a history of renal insufficiency in the past. PLAN OF CARE: 1. Continue with IV hydration. 5. Infectious disease consultation. 6. Renal consult for worsening renal failure. 7. Renal ultrasound. 8. Deep vein thrombosis and gastrointestinal prophylaxis. Dictated By: SHOBHA RAJAN/FARRAH Conf#: [id number] DID#: [id number]
[2016-10-26] MEDS ORDERED: VANCOMYCIN IV PER PHARMACY XX SCH (16:00)
--- NOTE | 2016-10-26 17:03 | CONS ---
DATE OF ADMISSION: 10/23/2016 DATE OF CONSULTATION: 10/26/2016 TYPE OF CONSULTATION: Infectious Disease. REASON FOR CONSULTATION: Antibiotic management. HISTORY OF PRESENT ILLNESS: Tim Grimes is a 55-year-old male with a number of problems who comes in with generalized malaise and body aches. His past problems include: 1. History of gout. 2. Essential hypertension. 3. Depression. 4. Dyslipidemia. Acutely, the patient comes in with generalized malaise and body aches. He has had a flu-like illnes s over the past week with joint pains that have gotten progressively worse. His right great toe is enlarged and not improved. It has been untreated. He complains of fever, chills, decreased ambulat ion and fatigue. He denies any sick contacts or recent travel. No chest pain or shortness of breat h. On admission, his white count was 23.2, H and H of 10.5 and 32, platelet count 382,000. BUN and creatinine 36/1.26. PAST MEDICAL HISTORY: Operations as outlined. FAMILY HISTORY: Noncontributory except for hypertension. SOCIAL HISTORY: He is a former smoker, does not drink or abuse drugs. ALLERGIES: NONE TO PENICILLIN, SULFA OR FOODS. MEDICATIONS: Per chart. REVIEW OF SYSTEMS: Noncontributory. PHYSICAL EXAMINATION: GENERAL: The patient is a well-developed, well-nourished male who is alert, responsive, complaining of foot pain, otherwise no acute distress. VITAL SIGNS: Stable. He is afebrile. SKIN: Without generalized rash. HEENT: Within normal limits. NECK: Supple. LYMPH NODES: None palpable. CHEST: Decreased breath sounds at the bases. HEART: Without murmur or gallop. ABDOMEN: Soft, nontender, without organosplenomegaly or masses. EXTREMITIES: He has got tophi which are diffuse. He has arthritic changes, gouty changes bilateral lower extremities. Right great toe is erythematous. There is a tophus present. No active drainag e. RECTAL AND GENITAL: Exams deferred. NEUROLOGIC: No focal neurological abnormalities. DIAGNOSTIC DATA: Chest x-ray shows no acute infiltrate. IMPRESSION AND PLAN: The patient started on vancomycin and Levaquin for cellulitis as well as topha ceous gout. We will also place the patient on for diarrhea. Foot x-ray shows erosive arthrit is involving the first digit and second digit metatarsophalangeal joints and first tarsometatarsal, interphalangeal joints, adjacent soft tissue nodules most likely consistent with tophi findings appe ar consistent with gout. So we are treating gout with indomethacin and he is on vancomycin and Leva daja for the cellulitis. I will dictate my findings to Dr. Caicedo, the hospitalist, . Dictated By: ADELA VANN MD, JD/FARRAH Conf#: [id number] DID#: [id number]
[2016-10-26] MEDS ORDERED: VANCOMYCIN 1.25 GM in SOD CHLORIDE 0.9% 250 ML IVPB ONE (18:00)
--- NOTE | 2016-10-26 19:33 | RADRPT ---
PROCEDURE: Renal US. CLINICAL INDICATION: Renal dysfunction. TECHNIQUE: Multiple sonographic images of the kidneys and urinary bladder were obtained. The imag es were reviewed on a PACS workstation. COMPARISON: No prior studies are available for comparison. FINDINGS: The right kidney measures 9.9 x 5.6 x 5.6 cm. The left kidney measures 11.3 x 6.8 x 5.9 cm. There is no renal mass. There is no hydronephrosis. There is no renal calculus. Renal parenchymal thickness and echogenicity is normal bilaterally. The perirenal regions are normal with no fluid collection or mass. The urinary bladder is unremarkable. There is a possible 0.4 cm calculus in the left ureterovesicle junction. IMPRESSION: 1. Normal kidneys with no hydronephrosis. 2. Possible 0.4 cm calculus in the left ureteral vesicle junction. 3. Otherwise unremarkable study. RPTAT: QQ .Juan Jackson MD, MD Date Time Electronically viewed and signed by .Juan Jackson MD, on 10/26/2016 19:33 .R/
[2016-10-26] MEDS: traZODone 50 MG TAB PO SCH (20:41)
[2016-10-26] MEDS: ATORVASTATIN 10 MG TAB PO SCH (20:42)
[2016-10-26] MEDS: ZOLPIDEM 5 MG TAB PO PRN (22:22)
[2016-10-27] VITALS (12 sets, daily range): BP systolic 107–146; BP diastolic 60–84; PULSE 65–152; RESP 15–18
[2016-10-27] MEDS: morphine 2 MG INJ IV PRN ×4 (06:17→23:33)
[2016-10-27] MEDS: LEVOFLOXACIN 250 MG TAB NGT SCH (06:17)
[2016-10-27 07:14] LABS: BASOPHILS % 0.1 % (0.0-2.0); HEMATOCRIT 25.8 % (42.0-52.0); HEMOGLOBIN 8.3 g/dl (14.0-18.0); LYMPHOCYTES # 1.1 10^3/ul (0.8-2.9); LYMPHOCYTES % 6.4 % (15.0-51.0); MEAN CORPUSCULAR HGB CONC 32.2 g/dl (32.0-37.0); MEAN CORPUSCULAR VOLUME 77.8 fl (82.0-101.0); MEAN PLATELET VOLUME 9.8 fl (7.4-10.4); MONOCYTE # 0.7 10^3/ul (0.3-0.9); NEUTROPHIL # 14.8 10^3/ul (1.6-7.5); NEUTROPHILS % 89.5 % (39.0-77.0); PLATELET COUNT 339 10^3/UL (140-440); RED BLOOD COUNT 3.32 10^6/ul (4.70-6.10); RED CELL DISTRIBUTION WIDTH 18.3 % (11.5-14.5); UNCORRECTED WBC 16.6 10^3/ul (4.8-10.8); WHITE BLOOD COUNT 16.6 10^3/ul (4.8-10.8)
[2016-10-27 07:31] LABS: CONDITION 1; LH ANALYZER COMMENTS 1
[2016-10-27 07:38] LABS: POTASSIUM 4.2 mmol/L (3.5-5.1)
[2016-10-27 07:40] LABS: CREATININE 2.77 mg/dl (0.61-1.24)
[2016-10-27 07:41] LABS: CALCIUM 9.3 mg/dl (8.4-10.2); PHOSPHORUS 4.5 mg/dl (2.5-4.9)
[2016-10-27 07:42] LABS: MAGNESIUM 1.2 mg/dl (1.7-2.5)
[2016-10-27] MEDS: FAMOTIDINE 20 MG TAB PO SCH (08:48)
[2016-10-27] MEDS: AMLODIPINE 5 MG TAB PO SCH (08:48)
[2016-10-27] MEDS: predniSONE 20 MG TAB PO SCH (08:48)
[2016-10-27] MEDS: METOPROLOL (XL) 50 MG TAB PO SCH (08:49)
[2016-10-27] MEDS: QUETIAPINE 100 MG TAB PO SCH (08:49)
[2016-10-27] MEDS: HEPARIN 5,000 UNIT/0.5 ML SYG SC SCH ×2 (08:54→22:53)
[2016-10-27] MEDS ORDERED: MAGNESIUM SULFATE 1 GM/D5W 100 ML IVPB ONE (09:00)
[2016-10-27 11:10] LABS: IRON 68 ug/dl (35-150)
[2016-10-27 11:19] LABS: TOTAL IRON BINDING CAPACITY 219 ug/dl (241-421)
[2016-10-27] MEDS: MULTIVITAMINS THERAPEUTIC TAB PO SCH (12:37)
[2016-10-27] MEDS: MEGESTROL (40 MG/ML) 10ML CUP PO SCH (12:37)
--- NOTE | 2016-10-27 14:07 | PN ---
DATE: 10/27/2016 SUBJECTIVE DATA: Complains of right toe pain. Denies any dyspnea. The patient had sinus tachycardia with heart rate as high as 152. At that time, the patient was using the restroom. OBJECTIVE DATA: VITAL SIGNS: Temperature 98.0, pulse rate 81, respiratory rate 17, blood pressure 139/82, oxygen saturation 96% on room air. GENERAL: This is a thin male lying in bed in no apparent distress. HEENT: Head normocephalic and atraumatic. Eyes: Anicteric sclerae. Conjunctivae clear. ENT: Nasal septum is midline. Oral mucosa is moist. NECK: Supple. No JVD noticed. RESPIRATORY: Bilaterally clear to auscultation. No adventitious breath sounds heard. No use of accessory muscles of respiration. CARDIAC: Regular rate and rhythm. No murmurs heard. ABDOMEN: Soft, nontender and nondistended. Bowel sounds positive in all 4 quadrants. GENITOURINARY: Deferred. EXTREMITIES: No cyanosis, no clubbing, no edema. Gouty tophi on bilateral lower extremities, the worst one on the right first toe. NEUROLOGIC: The patient is awake, alert and oriented. Cranial nerves are grossly intact. LABORATORY AND DIAGNOSTIC DATA: WBC 16.6, hemoglobin 8.3, hematocrit 24.8, platelet count 339. Sodium 142, potassium 4.0, chloride 102, carbon dioxide 21 , anion gap 18, BUN 67, creatinine 2.74, glucose 94, calcium 9.3, phosphorus 4.5 , magnesium 1.2. ASSESSMENT AND PLAN: 1. Acute gout flare with a diffuse gouty arthritis. The patient currently on prednisone and the patient will be provided with adequate pain control. Unable to use NSAIDs because of worsening renal function. 2. Acute bronchitis. Continue antibiotics. Renally dose antibiotics. 3. Nonoliguric acute kidney injury on top of chronic kidney disease with unknown baseline creatinine, most probably secondary to NSAID use as well as underlying acute flareup of gout. Continue to monitor the BUN and creatinine closely. 4. Essential hypertension. Continue antihypertensives. Blood pressure fairly well controlled. 5. Sinus tachycardia. Unclear etiology, most probably secondary to underlying SIRS. Continue to monitor in telemetry floor. 6. Depression. Continue antidepressants. 7. Dyslipidemia. Continue statins. 8. Microcytic hypochromic anemia, etiology unclear. Will obtain an iron panel. 9. Systemic inflammatory response syndrome with leukocytosis and tachycardia, etiology unclear. Pancultures negative. On antibiotics as per Infectious Disease. 10. Fluid, electrolytes, and nutrition. Low cholesterol diet. 11. Deep venous thrombosis prophylaxis. Subcutaneous heparin. 12. Gastrointestinal prophylaxis. Histamine-2 receptor blockers. DISPOSITION/PLAN: Continue current management. The patient unstable to be discharged. The case was discussed with Dr. Marks. SCOTTY MARKS MD, AM/FARRAH Conf#: [id number] DID#: [id number] MTDD
--- NOTE | 2016-10-27 14:42 | CONS ---
Date/Time of Note Date/Time of Note DATE: 10/27/16 TIME: 14:42 Assessment/Plan Assessment/Plan Chief Complaint/Hosp Course ID PROGRESS NOTE TOTAL ABX DAY # 3=> Vanco IV + Levaquin s/p Clinda + Zosyn 24H INTERVAL SUMMARY * Feeling a bit better, tells me has been at home sick x 3-weeks with URI "Virus " -- on bedrest with decreased PO intake. * Supplemental O2 via NC * 10/23/16 CXR: No acute air space infiltrates. * RENAL SHELLIE: IMPRESSION: 1. Normal kidneys with no hydronephrosis. 2. Possible 0.4 cm calculus in the left ureteral vesicle junction. 3. Otherwise unremarkable study. [id number] PHYSICAL EXAMINATION: GENERAL: 55 yo M appears pale, weak on supplemental O2 via NC HEENT: Unremarkable = BIPAP NECK: Supple, trachea midline. CHEST: Rise symmetrical with mild tachypnea HEART: RRR ABDOMEN: Soft EXTREMITIES: Warm ID ASSESSMENT: 55 yo M w/PMHx: Cirrhosis, Gout (untreated), HTN, DLD, depression, presented with 3-weeks generalized malaise and body aches. 1. SIRS w/leukocytosis, general malaise and myalgias => Patient tells me he has URI sxs of "flu virus" x 3-weeks associated w/ bedrest, decreased PO intake * (-Influenza A/B * Blood Cx (-) 2. Right Great Toe Tophi Gout flare - 2/2 to renal insufficiency * X-RAY: Erosive arthritis involving the first digit and second digit metatarsal phalangeal joints, and first tarsometatarsal and interphalangeal joints. Adjacent soft tissue nodules most likely consistent with tophi. Findings appear consistent with gout. 3. Acute renal failure - dehydration + NSAIDS at home for Gout 4. Microcytic anemia- chronic 5. Essential hypertension 6. Depression - SSRI onboard 7. Dyslipidemia - on statin 8. Cirrhosis - hx of per patient MRSA Nares -> Pending INVASIVES: *PIV CURRENT ABX: DAY #3 => Vanco IV + Cefepime s/p ID RECOMMENDATIONS: CONTINUE Current ABX Problems: Consultation Date/Type/Reason Admit Date/Time Oct 23, 2016 at 23:56 Initial Consult Date Exam/Review of Systems Vital Signs Vitals Vital Signs Date Time Temp Pulse Resp B/P Pulse Ox O2 Delivery O2 Flow Rate FiO2 10/27/16 12:20 79 10/27/16 11:51 98.0 17 135/79 97 10/26/16 08:00 Nasal Cannula 2.0 Intake and Output 10/26/16 10/26/16 10/27/16 15:00 23:00 07:00 Intake Total 1250 ml 1195 ml 1400 ml Output Total 600 ml 2100 ml 2150 ml Balance 650 ml -905 ml -750 ml Results Result Diagram: 10/27/16 0605 10/27/16 0605 Results 24 hrs Laboratory Tests Test 10/26/16 16:25 10/27/16 06:05 Parathyroid Hormone (Intact) Anion Gap 18 H Basophils # 0.0 Basophils % 0.1 Blood Morphology Comment Blood Urea Nitrogen 67 H Calcium Level 9.3 Carbon Dioxide Level 21 Chloride Level 107 Creatinine 2.77 H Eosinophils # 0.0 Eosinophils % 0.0 Ferritin 245.0 Glucose Level 94 Hematocrit 25.8 L Hemoglobin 8.3 L Iron Level 68 Lymphocytes # 1.1 Lymphocytes % 6.4 L Magnesium Level 1.2 L Mean Corpuscular Hemoglobin 25.0 L Mean Corpuscular Hemoglobin Concent 32.2 Mean Corpuscular Volume 77.8 L Mean Platelet Volume 9.8 Monocytes # 0.7 Monocytes % 4.0 Neutrophils # 14.8 H Neutrophils % 89.5 H Nucleated Red Blood Cells # 0.0 Nucleated Red Blood Cells % 0.0 Percent Iron Saturation 31 Phosphorus Level 4.5 Platelet Count 339 Potassium Level 4.2 Red Blood Count 3.32 L Red Cell Distribution Width 18.3 H Sodium Level 142 Total Iron Binding Capacity 219 L White Blood Count 16.6 #H Medications Medications Current Medications Ondansetron HCl (Zofran Inj) 4 mg Q6H PRN IV NAUSEA AND/OR VOMITING Last administered on 10/26/16 20:42; Admin Dose 4 MG; Start 10/24/16 at 01:00 Acetaminophen (Tylenol Tab) 650 mg Q6H PRN PO PAIN LEVEL 1-3 OR FEVER; Start at 01:00 Acetaminophen/ Hydrocodone Bitart ([place] (5/325)) 1 tab Q6H PRN PO MODERATE PAIN LEVEL 4-6 Last administered on 10/26/16 15:47; Admin Dose 1 TAB; Start 09/28 at 01:00 Morphine Sulfate (morphine) 2 mg Q4H PRN IV SEVERE PAIN LEVEL 7-10 Last administered on 10/27/16 10:10; Admin Dose 2 MG; Start 10/24/16 at 01:00 Docusate Sodium (Colace) 100 mg Q12H PRN PO CONSTIPATION; Start 10/24/16 at 01: 00 Heparin Sodium (Porcine) (Heparin (5000 Units/0.5 ml)) 5,000 unit Q12 SC Last administered on 10/27/16 08:54; Admin Dose 5,000 UNIT; Start 10/24/16 at 09:00 Amlodipine Besylate (Norvasc) 5 mg DAILY PO Last administered on 10/27/16 08: 48; Admin Dose 5 MG; Start 10/24/16 at 09:00 Metoprolol Succinate (Toprol Xl) 50 mg DAILY PO Last administered on 10/27/16 08:49; Admin Dose 50 MG; Start 10/24/16 at 09:00 Quetiapine Fumarate (Seroquel) 150 mg DAILY PO Last administered on 10/27/16 08:49; Admin Dose 150 MG; Start 10/24/16 at 09:00 Trazodone HCl (Desyrel) 150 mg QHS PO Last administered on 10/26/16 20:41; Admin Dose 150 MG; Start 10/24/16 at 21:00 Atorvastatin Calcium (Lipitor) 10 mg DAILY@21 PO Last administered on 20:42; Admin Dose 10 MG; Start 10/24/16 at 21:00 Levofloxacin (Levaquin) 250 mg DAILY@06 NGT Last administered on 10/27/16 06: 17; Admin Dose 250 MG; Start 10/25/16 at 14:00 Prednisone (Prednisone) 40 mg DAILY PO Last administered on 10/27/16 08:48; Admin Dose 40 MG; Start 10/25/16 at 13:00 Famotidine (Pepcid) 20 mg DAILY PO Last administered on 10/27/16 08:48; Admin Dose 20 MG; Start 10/26/16 at 09:00 Zolpidem Tartrate 5 mg 5 mg HS PRN PO INSOMNIA Last administered on 10/26/16 22:22; Admin Dose 5 MG; Start 10/25/16 at 22:30 Sodium Chloride (NS) 1,000 ml @ 75 mls/hr [id number] IV Last administered on 10/26 22:22; Admin Dose 75 MLS/HR; Start 10/26/16 at 13:00 Multivitamins Therapeutic (Theragran) 1 tab DAILY PO Last administered on 12:37; Admin Dose 1 TAB; Start 10/27/16 at 11:00 Megestrol Acetate 800 mg 800 mg DAILY PO Last administered on 10/27/16 12:37; Admin Dose 800 MG; Start 10/27/16 at 11:00 Vancomycin HCl (Vancocin) 250 ml @ 125 mls/hr Q36H IVPB ; Start 10/27/16 at 22: 00 ÓSCAR BARTLETT NP Oct 27, 2016 14:42
--- NOTE | 2016-10-27 15:37 | RADRPT ---
Echocardiogram Report Patient Name: STEPHEN YOUNG Gender: Male Date: 1960 Study Date: 26-Oct-2016 [employer]insetter Mechanic Helper: Scottie [facility] Location: [address] Ref. Physician: SHOBHA MAHONEY Quality: Adequate Procedures: Transthoracic echocardiogram with complete 2D, M-Mode, and doppler examination. Indications: Sinus Tachycardia. 2D/M Mode Doppler Measurement Value Normal Ranges Measurement Value Normal Ranges LVIDd 2D 4.2 3.5 - 5.6 cm AV Peak Tylor 1.3 m/sec LVIDs 2D 2.9 2.1 - 4.1 cm AV Peak PG 6.0 mmHg FS 2D 31.6 % LVOT Peak Tylor 1.3 m/sec LVPWd 2D 1.1 0.6 - 1.1 cm LVOT Peak PG 6.0 mmHg IVSd 2D 1.3 0.6 - 1.1 cm MV E Peak Tylor 1.0 m/sec IVS/LVPW 2D 1.2 MV A Peak Tylor 0.8 m/sec AoR Diam 2D 2.7 2.0 - 3.7 cm MV E/A 1.2 LA/Ao 2D 1 0 - 1 MV Decel Time 197 msec EDV 2D 76.2 cm3 MV E/A 1.2 ESV 2D 24.4 cm3 MR Peak PG 52.0 mmHg LA Dimen 2D 3.8 2.3 - 4.0 cm MR Peak Tylor 3.6 m/sec TR Peak Tylor 2.8 m/sec TR Peak PG 31.0 mmHg Findings Left Ventricle: Normal left ventricular systolic function. Normal left ventricular cavity size. Mild hypertrophy of the basal septum. Ejection fraction is visually estimated at 6065 %. Tissue Doppler/Mitral Doppler indices are consistent with impaired relaxation (Stage I diastolic dysfunction). Right Ventricle: Normal right ventricular size. Normal right ventricular systolic function. Left Atrium: The left atrium is normal in size. Right Atrium: The right atrium is normal in size. Mitral Valve: Mild mitral leaflet calcification. Mild mitral valve regurgitation. Aortic Valve: Normal trileaflet aortic valve structure. Tricuspid Valve: Estimated peak PA systolic pressure 39 mmHg. There is mild tricuspid regurgitation. Pericardium: Normal pericardium with no significant pericardial effusion. Aorta: Normal aortic root. IVC: Dilated inferior vena cava with poor inspiratory collapse consistent with elevated right atrial pressures. Conclusions 1.Normal left ventricular systolic function. Normal left ventricular cavity size. Mild hypertrophy of the basal septum. Ejection fraction is visually estimated at 60-65 %. Tissue Doppler/Mitral Doppler indices are consistent with impaired relaxation (Stage I diastolic dysfunction). 2.Mild mitral leaflet calcification. Mild mitral valve regurgitation. 3.Estimated peak PA systolic pressure 39 mmHg. There is mild tricuspid regurgitation. Electronically Signed By: Len Armstrong 27-Oct-2016 15:36:21 -0800 Patient Name: STEPHEN YOUNG Study Date: 26-Oct-2016 [id number]
--- NOTE | 2016-10-27 15:55 | PN ---
DATE: 10/27/2016 SUBJECTIVE: The patient is stable. Complaining of insomnia At night and requesting Restoril. No o ther events noted. OBJECTIVE: VITAL SIGNS: Blood pressure 139/83, respirations 17, pulse 69, temperature 98.0. HEENT: Head is normocephalic. NECK: Supple. HEART: Regular rate. LUNGS: Show diminished breath sounds at base. ABDOMEN: Soft, nontender to palpation. No rebound or guarding. EXTREMITIES: Negative for clubbing, cyanosis. No edema. DERMATOLOGIC: No rashes. MUSCULOSKELETAL: The patient's right toe has noted deformities with noted tophi. NEUROLOGIC: No focal deficits. LABORATORY DATA: Showed sodium 142, potassium 4.2, chloride 107, BUN 67, creatinine 2.77, magnesium 1.2. White count 16.6, hemoglobin 9.3, hematocrit 25.8, platelet count is 339. Patient's repeat u rinalysis shows greater than 1%, urine bacteria. Renal ultrasound shows normal kidneys, no hy dronephrosis, 0.4 mm calculus, possibly at the left UPJ. ASSESSMENT AND PLAN: 1. Nonoliguric acute kidney injury on top of chronic kidney disease with unknown baseline creatinin e. Etiology of acute kidney injury is secondary to acute tubular necrosis, likely from NSAID use. The patient's urinalysis shows evidence of coarse granular casts consistent with tubular injury. Th e patient's renal ultrasound shows no evidence of obstruction. At this point, the patient appears t o be entering the recovery phase of acute tubular necrosis as renal function has been improving. Wo uld continue to defer all NSAIDs. Continue IV fluids, continue supportive care, renally dose all me dications, avoid nephrotoxins. 2. Hypomagnesemia. Will replete with magnesium sulfate 1 gram IV x1. 3. Anemia of chronic disease. Monitor hemoglobin and hematocrit levels. 4. Metabolic bone disorder. PTH level is pending. 5. Acute gouty flare. Continue prednisone. 6. Bronchitis. Continue current antibiotic regimen. 7. Hypertension. Continue current blood pressure regimen. 8. Depression. Continue SSRI. 9. Insomnia. Continue Ambien. Consider Restoril. Dictated By: HERO LI/FARRAH Conf#: [id number] DID#: [id number]
[2016-10-27] MEDS: SOD CHLORIDE 0.9% 1,000 ML IV SCH (16:02)
[2016-10-27] MEDS ORDERED: VANCOMYCIN 1 GM in NS 250 ML IVPB SCH (22:00)
[2016-10-27] MEDS: traZODone 50 MG TAB PO SCH (22:31)
[2016-10-27] MEDS: ATORVASTATIN 10 MG TAB PO SCH (22:31)
[2016-10-27] MEDS: ZOLPIDEM 5 MG TAB PO PRN (23:29)
[2016-10-28] VITALS (9 sets, daily range): BP systolic 99–141; BP diastolic 58–77; PULSE 63–80; RESP 16–20
[2016-10-28] MEDS: LEVOFLOXACIN 250 MG TAB NGT SCH (05:44)
[2016-10-28] MEDS: SOD CHLORIDE 0.9% 1,000 ML IV SCH ×2 (05:45→23:13)
[2016-10-28] MEDS: morphine 2 MG INJ IV PRN ×3 (06:34→21:02)
[2016-10-28 08:11] LABS: POTASSIUM 4.4 mmol/L (3.5-5.1)
[2016-10-28 08:14] LABS: CREATININE 2.37 mg/dl (0.61-1.24); MAGNESIUM 1.3 mg/dl (1.7-2.5); PHOSPHORUS 4.7 mg/dl (2.5-4.9)
[2016-10-28 08:15] LABS: CALCIUM 9.6 mg/dl (8.4-10.2)
[2016-10-28 08:21] LABS: BASOPHILS % 0.1 % (0.0-2.0); HEMATOCRIT 27.9 % (42.0-52.0); HEMOGLOBIN 9.1 g/dl (14.0-18.0); LYMPHOCYTES # 0.8 10^3/ul (0.8-2.9); LYMPHOCYTES % 4.9 % (15.0-51.0); MEAN CORPUSCULAR HEMOGLOBIN 25.3 pg (29.0-33.0); MEAN CORPUSCULAR HGB CONC 32.4 g/dl (32.0-37.0); MEAN CORPUSCULAR VOLUME 77.9 fl (82.0-101.0); MEAN PLATELET VOLUME 9.9 fl (7.4-10.4); MONOCYTE # 0.6 10^3/ul (0.3-0.9); MONOCYTES % 3.6 % (0.0-11.0); NEUTROPHIL # 14.7 10^3/ul (1.6-7.5); NEUTROPHILS % 91.4 % (39.0-77.0); PLATELET COUNT 375 10^3/UL (140-440); RED BLOOD COUNT 3.58 10^6/ul (4.70-6.10); RED CELL DISTRIBUTION WIDTH 18.6 % (11.5-14.5); UNCORRECTED WBC 16.1 10^3/ul (4.8-10.8); WHITE BLOOD COUNT 16.1 10^3/ul (4.8-10.8)
[2016-10-28] MEDS ORDERED: MAGNESIUM SULFATE 2 GM/50 ML 50 ML IVPB ONE (08:30)
[2016-10-28 08:35] LABS: CONDITION 1; LH ANALYZER COMMENTS 1
[2016-10-28] MEDS: MULTIVITAMINS THERAPEUTIC TAB PO SCH (08:47)
[2016-10-28] MEDS: QUETIAPINE 100 MG TAB PO SCH (08:47)
[2016-10-28] MEDS: MEGESTROL (40 MG/ML) 10ML CUP PO SCH (08:47)
[2016-10-28] MEDS: FAMOTIDINE 20 MG TAB PO SCH (08:47)
[2016-10-28] MEDS: METOPROLOL (XL) 50 MG TAB PO SCH (08:47)
[2016-10-28] MEDS: predniSONE 20 MG TAB PO SCH (08:47)
[2016-10-28] MEDS: AMLODIPINE 5 MG TAB PO SCH (08:47)
[2016-10-28] MEDS: HEPARIN 5,000 UNIT/0.5 ML SYG SC SCH ×2 (08:55→20:52)
[2016-10-28] MEDS: HYDROCODONE/APAP (5/325) TAB PO PRN (08:58)
--- NOTE | 2016-10-28 13:15 | PN ---
DATE: 10/28/2016 SUBJECTIVE: The patient is stable, no acute events overnight. No fevers, chills, nausea, vomiting. OBJECTIVE: VITAL SIGNS: Blood pressure 141/77, respirations 20, pulse 77, temperature 98.4. HEENT: Head is normocephalic. NECK: Supple. HEART: Regular rate. LUNGS: Show diminished breath sounds at base. ABDOMEN: Soft, nontender to palpation. No rebound or guarding. EXTREMITIES: Negative for clubbing, cyanosis, or edema. DERMATOLOGIC: No rashes. MUSCULOSKELETAL: The patient has noted deformities of his right toe and second and third digits wit h noted tophi. NEUROLOGIC: No focal deficits. LABORATORY DATA: Sodium 142, potassium 4.4, chloride 106, BUN 62, creatinine 2.37, magnesium 1.3. White count 16.6, hemoglobin 9.3, hematocrit 12.8, platelet count is 339. ASSESSMENT AND PLAN: 1. Nonoliguric acute kidney injury on top of chronic kidney disease with unknown baseline creatinin e. Etiology of acute kidney injury is secondary to acute tubular necrosis due to NSAID use. The trey rosales's renal function is slowly improving. At this point, continue current treatment plan, support kenneth care, renally dose all meds, continue gentle IV hydration. Will decrease rate of fluids to 50 m L an hour. 2. Hypomagnesemia, replete with magnesium sulfate 2 grams IV x1. 3. Anemia of chronic disease. Continue to monitor hemoglobin and hematocrit levels. 4. Mineral bone disorder, monitor calcium and phosphorus levels. 5. Acute gouty flare. Continue prednisone. The patient cannot tolerate NSAIDs due to acute kidney injury. 6. Bronchitis. Continue current antibiotic regimen. 7. Hypertension. Continue current blood pressure regimen. 8. Depression. Continue SSRI. 9. Insomnia. Continue Ambien. Dictated By: HERO LI/FARRAH Conf#: [id number] DID#: [id number]
--- NOTE | 2016-10-28 15:12 | PN ---
Date/Time of Note Date/Time of Note DATE: 10/28/16 TIME: 15:09 Assessment/Plan VTE Prophylaxis VTE Prophylaxis Intervention: heparin Lines/Catheters IV [facility]from [facility] Peripheral IV Urinary Cath still in place: No Assessment/Plan Chief Complaint/Hosp Course 1. Acute gout flare with a diffuse gouty arthritis. The patient currently on prednisone and the patient will be provided with adequate pain control. Unable to use NSAIDs because of worsening renal function. 2. Acute bronchitis. Continue antibiotics. Renally dose antibiotics. 3. Nonoliguric acute kidney injury on top of chronic kidney disease with unknown baseline creatinine, most probably secondary to NSAID use. Continue to monitor the BUN and creatinine closely. 4. Essential hypertension. Continue antihypertensives. Blood pressure fairly well controlled. 5. Sinus tachycardia. Unclear etiology, most probably secondary to underlying SIRS. Continue to monitor in telemetry floor. 6. Depression. Continue antidepressants. 7. Dyslipidemia. Continue statins. 8. Microcytic hypochromic anemia, etiology unclear. Will obtain an iron panel. 9. Systemic inflammatory response syndrome with leukocytosis and tachycardia, etiology unclear. Pancultures negative. On antibiotics as per Infectious Disease. 10. Fluid, electrolytes, and nutrition. Low cholesterol diet. 11. Deep venous thrombosis prophylaxis. Subcutaneous heparin. 12. Gastrointestinal prophylaxis. Histamine-2 receptor blockers. Problems: Subjective 24 Hr Interval Summary Constitutional: other (gen weakness) Exam/Review of Systems Vital Signs Vitals Vital Signs Date Time Temp Pulse Resp B/P Pulse Ox O2 Delivery O2 Flow Rate FiO2 10/28/16 12:13 74 10/28/16 12:03 97.6 16 119/63 96 10/26/16 08:00 Nasal Cannula 2.0 Intake and Output 10/27/16 10/27/16 10/28/16 15:00 23:00 07:00 Intake Total 100 ml 1150 ml 1550 ml Output Total 1300 ml 1900 ml Balance 100 ml -150 ml -350 ml Exam Constitutional: alert Respiratory: clear to auscultation Cardiovascular: regular rate and rhythm Gastrointestinal: soft, No distended Musculoskeletal: No nl extremities to inspection Results Result Diagram: 10/28/16 0550 10/28/16 0550 Results 24 hrs Laboratory Tests Test 10/28/16 05:50 Anion Gap 17 H Basophils # 0.0 Basophils % 0.1 Blood Morphology Comment Blood Urea Nitrogen 62 H Calcium Level 9.6 Carbon Dioxide Level 23 Chloride Level 106 Creatinine 2.37 H Eosinophils # 0.0 Eosinophils % 0.0 Glucose Level 105 Hematocrit 27.9 L Hemoglobin 9.1 L Lymphocytes # 0.8 Lymphocytes % 4.9 L Magnesium Level 1.3 L Mean Corpuscular Hemoglobin 25.3 L Mean Corpuscular Hemoglobin Concent 32.4 Mean Corpuscular Volume 77.9 L Mean Platelet Volume 9.9 Monocytes # 0.6 Monocytes % 3.6 Neutrophils # 14.7 H Neutrophils % 91.4 H Nucleated Red Blood Cells # 0.0 Nucleated Red Blood Cells % 0.0 Phosphorus Level 4.7 Platelet Count 375 Potassium Level 4.4 Red Blood Count 3.58 L Red Cell Distribution Width 18.6 H Sodium Level 142 White Blood Count 16.1 H Medications Medications Current Medications Ondansetron HCl (Zofran Inj) 4 mg Q6H PRN IV NAUSEA AND/OR VOMITING Last administered on 10/26/16 20:42; Admin Dose 4 MG; Start 10/24/16 at 01:00 Acetaminophen (Tylenol Tab) 650 mg Q6H PRN PO PAIN LEVEL 1-3 OR FEVER; Start at 01:00 Acetaminophen/ Hydrocodone Bitart ([place] (5/325)) 1 tab Q6H PRN PO MODERATE PAIN LEVEL 4-6 Last administered on 10/28/16 08:58; Admin Dose 1 TAB; Start 09/28 at 01:00 Morphine Sulfate (morphine) 2 mg Q4H PRN IV SEVERE PAIN LEVEL 7-10 Last administered on 10/28/16 12:35; Admin Dose 2 MG; Start 10/24/16 at 01:00 Docusate Sodium (Colace) 100 mg Q12H PRN PO CONSTIPATION; Start 10/24/16 at 01: 00 Heparin Sodium (Porcine) (Heparin (5000 Units/0.5 ml)) 5,000 unit Q12 SC Last administered on 10/28/16 08:55; Admin Dose 5,000 UNIT; Start 10/24/16 at 09:00 Amlodipine Besylate (Norvasc) 5 mg DAILY PO Last administered on 10/28/16 08: 47; Admin Dose 5 MG; Start 10/24/16 at 09:00 Metoprolol Succinate (Toprol Xl) 50 mg DAILY PO Last administered on 10/28/16 08:47; Admin Dose 50 MG; Start 10/24/16 at 09:00 Quetiapine Fumarate (Seroquel) 150 mg DAILY PO Last administered on 10/28/16 08:47; Admin Dose 150 MG; Start 10/24/16 at 09:00 Trazodone HCl (Desyrel) 150 mg QHS PO Last administered on 10/27/16 22:31; Admin Dose 150 MG; Start 10/24/16 at 21:00 Atorvastatin Calcium (Lipitor) 10 mg DAILY@21 PO Last administered on 22:31; Admin Dose 10 MG; Start 10/24/16 at 21:00 Levofloxacin (Levaquin) 250 mg DAILY@06 NGT Last administered on 10/28/16 05: 44; Admin Dose 250 MG; Start 10/25/16 at 14:00 Prednisone (Prednisone) 40 mg DAILY PO Last administered on 10/28/16 08:47; Admin Dose 40 MG; Start 10/25/16 at 13:00 Famotidine (Pepcid) 20 mg DAILY PO Last administered on 10/28/16 08:47; Admin Dose 20 MG; Start 10/26/16 at 09:00 Zolpidem Tartrate 5 mg 5 mg HS PRN PO INSOMNIA Last administered on 10/27/16 23:29; Admin Dose 5 MG; Start 10/25/16 at 22:30 Sodium Chloride (NS) 1,000 ml @ 50 mls/hr Q20H IV Last administered on 05:45; Admin Dose 75 MLS/HR; Start 10/26/16 at 13:00 Multivitamins Therapeutic (Theragran) 1 tab DAILY PO Last administered on 08:47; Admin Dose 1 TAB; Start 10/27/16 at 11:00 Megestrol Acetate 800 mg 800 mg DAILY PO Last administered on 10/28/16 08:47; Admin Dose 800 MG; Start 10/27/16 at 11:00 Vancomycin HCl (Vancocin) 250 ml @ 125 mls/hr Q36H IVPB Last administered on 22:30; Admin Dose 125 MLS/HR; Start 10/27/16 at 22:00 MATIAS NEWTON Oct 28, 2016 15:12
--- NOTE | 2016-10-28 15:47 | CONS ---
Date/Time of Note Date/Time of Note DATE: 10/28/16 TIME: 15:40 Assessment/Plan Assessment/Plan Chief Complaint/Hosp Course ID PROGRESS NOTE TOTAL ABX DAY # 4=> Vanco IV + Levaquin s/p Clinda + Zosyn 24H INTERVAL SUMMARY * Feeling a bit better, tells me has been at home sick x 3-weeks with URI "Virus " -- on bedrest with decreased PO intake. * Supplemental O2 via NC * 10/23/16 CXR: No acute air space infiltrates. * RENAL SHELLIE: IMPRESSION: 1. Normal kidneys with no hydronephrosis. 2. Possible 0.4 cm calculus in the left ureteral vesicle junction. 3. Otherwise unremarkable study. PHYSICAL EXAMINATION: GENERAL: 55 yo M appears pale, weak on supplemental O2 via NC HEENT: Unremarkable = BIPAP NECK: Supple, trachea midline. CHEST: Rise symmetrical with mild tachypnea HEART: RRR ABDOMEN: Soft EXTREMITIES: Warm ID ASSESSMENT: 55 yo M w/PMHx: Cirrhosis, Gout (untreated), HTN, DLD, depression, presented with 3-weeks generalized malaise and body aches. 1. SIRS w/leukocytosis, general malaise and myalgias => Patient tells me he has URI sxs of "flu virus" x 3-weeks associated w/ bedrest, decreased PO intake * (-Influenza A/B * Blood Cx (-) 2. Right Great Toe Tophi Gout flare - 2/2 to renal insufficiency * X-RAY: Erosive arthritis involving the first digit and second digit metatarsal phalangeal joints, and first tarsometatarsal and interphalangeal joints. Adjacent soft tissue nodules most likely consistent with tophi. Findings appear consistent with gout. 3. Acute renal failure - dehydration + NSAIDS at home for Gout 4. Microcytic anemia- chronic 5. Essential hypertension 6. Depression - SSRI onboard 7. Dyslipidemia - on statin MRSA Nares -> Pending INVASIVES: *PIV CURRENT ABX: DAY #4 => Levaquin, Vanco IV #4 Cefepime s/p Vanco IV ID RECOMMENDATIONS: DC Vanco -> not clear that he has septic arthritis MRSA Nares screen ordered still pending ? - RN looking into this Taper ABX soon Problems: Consultation Date/Type/Reason Admit Date/Time Oct 23, 2016 at 23:56 Exam/Review of Systems Vital Signs Vitals Vital Signs Date Time Temp Pulse Resp B/P Pulse Ox O2 Delivery O2 Flow Rate FiO2 10/28/16 12:13 74 10/28/16 12:03 97.6 16 119/63 96 10/26/16 08:00 Nasal Cannula 2.0 Intake and Output 10/27/16 10/27/16 10/28/16 15:00 23:00 07:00 Intake Total 100 ml 1150 ml 1550 ml Output Total 1300 ml 1900 ml Balance 100 ml -150 ml -350 ml Results Result Diagram: 10/28/16 0550 10/28/16 0550 Results 24 hrs Laboratory Tests Test 10/28/16 05:50 Anion Gap 17 H Basophils # 0.0 Basophils % 0.1 Blood Morphology Comment Blood Urea Nitrogen 62 H Calcium Level 9.6 Carbon Dioxide Level 23 Chloride Level 106 Creatinine 2.37 H Eosinophils # 0.0 Eosinophils % 0.0 Glucose Level 105 Hematocrit 27.9 L Hemoglobin 9.1 L Lymphocytes # 0.8 Lymphocytes % 4.9 L Magnesium Level 1.3 L Mean Corpuscular Hemoglobin 25.3 L Mean Corpuscular Hemoglobin Concent 32.4 Mean Corpuscular Volume 77.9 L Mean Platelet Volume 9.9 Monocytes # 0.6 Monocytes % 3.6 Neutrophils # 14.7 H Neutrophils % 91.4 H Nucleated Red Blood Cells # 0.0 Nucleated Red Blood Cells % 0.0 Phosphorus Level 4.7 Platelet Count 375 Potassium Level 4.4 Red Blood Count 3.58 L Red Cell Distribution Width 18.6 H Sodium Level 142 White Blood Count 16.1 H Medications Medications Current Medications Ondansetron HCl (Zofran Inj) 4 mg Q6H PRN IV NAUSEA AND/OR VOMITING Last administered on 10/26/16 20:42; Admin Dose 4 MG; Start 10/24/16 at 01:00 Acetaminophen (Tylenol Tab) 650 mg Q6H PRN PO PAIN LEVEL 1-3 OR FEVER; Start at 01:00 Acetaminophen/ Hydrocodone Bitart ([place] (5/325)) 1 tab Q6H PRN PO MODERATE PAIN LEVEL 4-6 Last administered on 10/28/16 08:58; Admin Dose 1 TAB; Start 09/28 at 01:00 Morphine Sulfate (morphine) 2 mg Q4H PRN IV SEVERE PAIN LEVEL 7-10 Last administered on 10/28/16 12:35; Admin Dose 2 MG; Start 10/24/16 at 01:00 Docusate Sodium (Colace) 100 mg Q12H PRN PO CONSTIPATION; Start 10/24/16 at 01: 00 Heparin Sodium (Porcine) (Heparin (5000 Units/0.5 ml)) 5,000 unit Q12 SC Last administered on 10/28/16 08:55; Admin Dose 5,000 UNIT; Start 10/24/16 at 09:00 Amlodipine Besylate (Norvasc) 5 mg DAILY PO Last administered on 10/28/16 08: 47; Admin Dose 5 MG; Start 10/24/16 at 09:00 Metoprolol Succinate (Toprol Xl) 50 mg DAILY PO Last administered on 10/28/16 08:47; Admin Dose 50 MG; Start 10/24/16 at 09:00 Quetiapine Fumarate (Seroquel) 150 mg DAILY PO Last administered on 10/28/16 08:47; Admin Dose 150 MG; Start 10/24/16 at 09:00 Trazodone HCl (Desyrel) 150 mg QHS PO Last administered on 10/27/16 22:31; Admin Dose 150 MG; Start 10/24/16 at 21:00 Atorvastatin Calcium (Lipitor) 10 mg DAILY@21 PO Last administered on 22:31; Admin Dose 10 MG; Start 10/24/16 at 21:00 Levofloxacin (Levaquin) 250 mg DAILY@06 NGT Last administered on 10/28/16 05: 44; Admin Dose 250 MG; Start 10/25/16 at 14:00 Prednisone (Prednisone) 40 mg DAILY PO Last administered on 10/28/16 08:47; Admin Dose 40 MG; Start 10/25/16 at 13:00 Famotidine (Pepcid) 20 mg DAILY PO Last administered on 10/28/16 08:47; Admin Dose 20 MG; Start 10/26/16 at 09:00 Zolpidem Tartrate 5 mg 5 mg HS PRN PO INSOMNIA Last administered on 10/27/16 23:29; Admin Dose 5 MG; Start 10/25/16 at 22:30 Sodium Chloride (NS) 1,000 ml @ 50 mls/hr Q20H IV Last administered on 05:45; Admin Dose 75 MLS/HR; Start 10/26/16 at 13:00 Multivitamins Therapeutic (Theragran) 1 tab DAILY PO Last administered on 08:47; Admin Dose 1 TAB; Start 10/27/16 at 11:00 Megestrol Acetate 800 mg 800 mg DAILY PO Last administered on 10/28/16 08:47; Admin Dose 800 MG; Start 10/27/16 at 11:00 Vancomycin HCl 250 ml @ 125 mls/hr Q36H IVPB Last administered on 10/27/16 22 :30; Admin Dose 125 MLS/HR; Start 10/27/16 at 22:00 Magnesium Sulfate (Magnesium Sulfate 4 Gm/100 ml) 100 ml @ 25 mls/hr ONCE ONCE IVPB ; Start 10/28/16 at 16:30; Stop 10/28/16 at 20:29 ÓSCAR BARTLETT NP Oct 28, 2016 15:47
[2016-10-28] MEDS ORDERED: MAGNESIUM SULFATE 4 GM/100 ML 100 ML IVPB ONE (16:30)
[2016-10-28] MEDS: traZODone 50 MG TAB PO SCH (20:40)
[2016-10-28] MEDS: ATORVASTATIN 10 MG TAB PO SCH (20:40)
[2016-10-28] MEDS: ZOLPIDEM 5 MG TAB PO PRN (23:12)
[2016-10-29] MEDS: morphine 2 MG INJ IV PRN ×4 (02:53→22:19)
[2016-10-29 06:28] LABS: POTASSIUM 4.3 mmol/L (3.5-5.1)
[2016-10-29 06:30] LABS: CREATININE 2.24 mg/dl (0.61-1.24)
[2016-10-29 06:31] LABS: CALCIUM 9.4 mg/dl (8.4-10.2); MAGNESIUM 2.7 mg/dl (1.7-2.5); PHOSPHORUS 4.1 mg/dl (2.5-4.9)
[2016-10-29] MEDS: LEVOFLOXACIN 250 MG TAB NGT SCH (06:39)
[2016-10-29] MEDS: HYDROCODONE/APAP (5/325) TAB PO PRN ×3 (06:41→20:32)
[2016-10-29 07:37] VITALS: BP 146/80; RESP 20
[2016-10-29] MEDS: QUETIAPINE 100 MG TAB PO SCH (08:37)
[2016-10-29] MEDS: predniSONE 20 MG TAB PO SCH (08:37)
[2016-10-29] MEDS: FAMOTIDINE 20 MG TAB PO SCH (08:37)
[2016-10-29] MEDS: MEGESTROL (40 MG/ML) 10ML CUP PO SCH (08:37)
[2016-10-29] MEDS: AMLODIPINE 5 MG TAB PO SCH (08:38)
[2016-10-29] MEDS: METOPROLOL (XL) 50 MG TAB PO SCH (08:38)
[2016-10-29] MEDS: MULTIVITAMINS THERAPEUTIC TAB PO SCH (08:38)
[2016-10-29] MEDS: HEPARIN 5,000 UNIT/0.5 ML SYG SC SCH ×2 (08:42→20:33)
--- NOTE | 2016-10-29 11:17 | PN ---
DATE: SUBJECTIVE: The patient is stable. No acute events overnight. No fevers, chills, nausea or vomiti ng. No shortness of breath. OBJECTIVE: VITAL SIGNS: Blood pressure is 146/80, respiratory rate is 20, pulse 71, temperature 97.4. HEENT: Head is normocephalic. NECK: Supple. HEART: Regular rate. LUNGS: Show diminished breath sounds at base. ABDOMEN: Soft, nontender to palpation, no rebound or guarding. EXTREMITIES: Negative for clubbing, cyanosis. No edema. DERMATOLOGIC: No rashes. MUSCULOSKELETAL: No joint effusions. NEUROLOGIC: No change in exam. MEDICATIONS: Reviewed. LABORATORY DATA: Showed sodium 141, potassium 4.3, BUN 62, creatinine 2.24. White count 16.1, hemo globin 9.1, hematocrit 27.9, platelets count is 375. ASSESSMENT AND PLAN: 1. Nonoliguric acute kidney injury on top of chronic kidney disease with unknown baseline creatinin e. Etiology of acute kidney injury is secondary to acute tubular necrosis. Patient's renal functio n is slowly improving. Continue current treatment plan, supportive care, renally dose all meds. We will hold IV fluids, as the patient appears volume replete. 2. Hypomagnesemia, improved. 3. Anemia of chronic disease. Continue to monitor hemoglobin and hematocrit levels. 4. Mineral bone disorder. Continue to monitor calcium and phosphorus levels. 5. Acute gouty flare. Continue prednisone. The patient cannot tolerate NSAIDs due to acute kidney injury. 6. Bronchitis. Continue current antibiotic regimen. 7. Hypertension. Continue current blood pressure regimen. 8. Depression. Continue SSRI. 9. Insomnia. Continue Ambien. Dictated By: HERO LI/FARRAH Conf#: [id number] DID#: [id number]
--- NOTE | 2016-10-29 12:20 | PN ---
DATE: 10/29/2016 SUBJECTIVE: The patient is alert, feels good, looks comfortable, no fevers. No labs this morning. BUN 62, creatinine 2.24. MICROBIOLOGY: All cultures have been negative since admission. ANTIMICROBIALS: The patient is status post IV vancomycin, now on oral Levaquin day #5. He is also on prednisone daily 40 mg. PHYSICAL EXAMINATION: GENERAL: Well-developed, middle-aged white man who is alert, in no distress. HEENT: Head atraumatic, normocephalic. Sclerae anicteric. Buccal mucosa dry. NECK: Supple, trachea midline. CHEST: Rise symmetrical. Breath sounds clear. HEART: S1, S2. ABDOMEN: Soft, bowel tones present. EXTREMITIES: Without cyanosis. ASSESSMENT: 1. Right great toe gouty arthritis. 2. Acute renal failure. 3. Hypertension. 4. Leukocytosis without evidence of active infection, possibly secondary to steroids. PLAN: The patient remains stable. Cultures since admission have been negative. No fevers. Chest x-ray on admission was negative. We are going to discontinue Levaquin and observe him. Continue kvng savage as per primary team and consultants. Dictated By: TIA QUARLES [employer] ARCHITECT for ADELA ZHAO/FARRAH Conf#: [id number] DID#: [id number]
--- NOTE | 2016-10-29 15:00 | PN ---
Date/Time of Note Date/Time of Note DATE: 10/29/16 TIME: 14:59 Assessment/Plan VTE Prophylaxis VTE Prophylaxis Intervention: heparin Lines/Catheters IV C[facility]ter Type (from [facility] [place] Urinary Cath still in place: No Assessment/Plan Chief Complaint/Hosp Course 1. Acute gout flare with a diffuse gouty arthritis. The patient currently on prednisone and the patient will be provided with adequate pain control. Unable to use NSAIDs because of worsening renal function -Rehab consult secondary to weakness 2. Acute bronchitis. Continue antibiotics. Renally dose antibiotics. 3. Nonoliguric acute kidney injury on top of chronic kidney disease with unknown baseline creatinine, most probably secondary to NSAID use. Continue to monitor the BUN and creatinine closely. 4. Essential hypertension. Continue antihypertensives. Blood pressure fairly well controlled. 5. Sinus tachycardia. Unclear etiology, most probably secondary to underlying SIRS. Continue to monitor in telemetry floor. 6. Depression. Continue antidepressants. 7. Dyslipidemia. Continue statins. 8. Microcytic hypochromic anemia, etiology unclear. Will obtain an iron panel. 9. Systemic inflammatory response syndrome with leukocytosis and tachycardia, etiology unclear. Pancultures negative. On antibiotics as per Infectious Disease. 10. Fluid, electrolytes, and nutrition. Low cholesterol diet. 11. Deep venous thrombosis prophylaxis. Subcutaneous heparin. 12. Gastrointestinal prophylaxis. Histamine-2 receptor blockers. Problems: Subjective 24 Hr Interval Summary Musculoskeletal: bone/joint pain Exam/Review of Systems Vital Signs Vitals Vital Signs Date Time Temp Pulse Resp B/P Pulse Ox O2 Delivery O2 Flow Rate FiO2 10/29/16 07:37 97.4 71 20 146/80 97 10/26/16 08:00 Nasal Cannula 2.0 Intake and Output 10/28/16 10/28/16 10/29/16 15:00 23:00 07:00 Intake Total 50 ml 1550 ml 1100 ml Output Total 950 ml 1500 ml Balance 50 ml 600 ml -400 ml Exam Constitutional: alert, oriented Respiratory: clear to auscultation Cardiovascular: regular rate and rhythm Gastrointestinal: soft, No distended Musculoskeletal: No nl extremities to inspection Results Result Diagram: 10/28/16 0550 10/29/16 0540 Results 24 hrs Laboratory Tests Test 10/29/16 05:40 Anion Gap 17 H Blood Urea Nitrogen 62 H Calcium Level 9.4 Carbon Dioxide Level 23 Chloride Level 105 Creatinine 2.24 H Glucose Level 105 Magnesium Level 2.7 #H Phosphorus Level 4.1 Potassium Level 4.3 Sodium Level 141 Medications Medications Current Medications Ondansetron HCl (Zofran Inj) 4 mg Q6H PRN IV NAUSEA AND/OR VOMITING Last administered on 10/26/16 20:42; Admin Dose 4 MG; Start 10/24/16 at 01:00 Acetaminophen (Tylenol Tab) 650 mg Q6H PRN PO PAIN LEVEL 1-3 OR FEVER; Start at 01:00 Acetaminophen/ Hydrocodone Bitart ([place] (5/325)) 1 tab Q6H PRN PO MODERATE PAIN LEVEL 4-6 Last administered on 10/29/16 14:56; Admin Dose 1 TAB; Start 09/28 at 01:00 Morphine Sulfate (morphine) 2 mg Q4H PRN IV SEVERE PAIN LEVEL 7-10 Last administered on 10/29/16 10:10; Admin Dose 2 MG; Start 10/24/16 at 01:00 Docusate Sodium (Colace) 100 mg Q12H PRN PO CONSTIPATION; Start 10/24/16 at 01: 00 Heparin Sodium (Porcine) (Heparin (5000 Units/0.5 ml)) 5,000 unit Q12 SC Last administered on 10/29/16 08:42; Admin Dose 5,000 UNIT; Start 10/24/16 at 09:00 Amlodipine Besylate (Norvasc) 5 mg DAILY PO Last administered on 10/29/16 08: 38; Admin Dose 5 MG; Start 10/24/16 at 09:00 Metoprolol Succinate (Toprol Xl) 50 mg DAILY PO Last administered on 10/29/16 08:38; Admin Dose 50 MG; Start 10/24/16 at 09:00 Quetiapine Fumarate (Seroquel) 150 mg DAILY PO Last administered on 10/29/16 08:37; Admin Dose 150 MG; Start 10/24/16 at 09:00 Trazodone HCl (Desyrel) 150 mg QHS PO Last administered on 10/28/16 20:40; Admin Dose 150 MG; Start 10/24/16 at 21:00 Atorvastatin Calcium (Lipitor) 10 mg DAILY@21 PO Last administered on 20:40; Admin Dose 10 MG; Start 10/24/16 at 21:00 Levofloxacin (Levaquin) 250 mg DAILY@06 NGT Last administered on 10/29/16 06: 39; Admin Dose 250 MG; Start 10/25/16 at 14:00 Prednisone (Prednisone) 40 mg DAILY PO Last administered on 10/29/16 08:37; Admin Dose 40 MG; Start 10/25/16 at 13:00 Famotidine (Pepcid) 20 mg DAILY PO Last administered on 10/29/16 08:37; Admin Dose 20 MG; Start 10/26/16 at 09:00 Zolpidem Tartrate (Ambien) 5 mg HS PRN PO INSOMNIA Last administered on 23:12; Admin Dose 5 MG; Start 10/25/16 at 22:30 Multivitamins Therapeutic (Theragran) 1 tab DAILY PO Last administered on 08:38; Admin Dose 1 TAB; Start 10/27/16 at 11:00 Megestrol Acetate (Megace Susp) 800 mg DAILY PO Last administered on 10/29/16 08:37; Admin Dose 800 MG; Start 10/27/16 at 11:00 MATIAS NEWTON Oct 29, 2016 15:00
[2016-10-29 15:13] LABS: MICROALBUMIN 0.6 mg/dL
[2016-10-29 20:07] VITALS: BP 133/65; RESP 14
[2016-10-29] MEDS: ATORVASTATIN 10 MG TAB PO SCH (20:32)
[2016-10-29] MEDS: traZODone 50 MG TAB PO SCH (20:32)
[2016-10-29] MEDS: ZOLPIDEM 5 MG TAB PO PRN (20:32)
[2016-10-29] MEDS ORDERED: ZOLPIDEM 5 MG TAB PO ONE (22:45)
[2016-10-29] MEDS: CEPASTAT LOZENGE MT PRN (22:53)
[2016-10-30] MEDS: CEPASTAT LOZENGE MT PRN ×4 (01:58→20:35)
[2016-10-30] MEDS: morphine 2 MG INJ IV PRN ×5 (01:58→23:13)
[2016-10-30] MEDS: HYDROCODONE/APAP (5/325) TAB PO PRN ×2 (04:55→20:05)
[2016-10-30] MEDS: LEVOFLOXACIN 250 MG TAB NGT SCH (05:52)
[2016-10-30 06:04] LABS: POTASSIUM 4.4 mmol/L (3.5-5.1)
[2016-10-30 06:07] LABS: CREATININE 2.35 mg/dl (0.61-1.24)
[2016-10-30 06:08] LABS: CALCIUM 9.4 mg/dl (8.4-10.2); MAGNESIUM 1.6 mg/dl (1.7-2.5); PHOSPHORUS 4.7 mg/dl (2.5-4.9)
[2016-10-30 07:46] VITALS: BP 135/74; RESP 16
[2016-10-30] MEDS: QUETIAPINE 100 MG TAB PO SCH (08:41)
[2016-10-30] MEDS: HEPARIN 5,000 UNIT/0.5 ML SYG SC SCH ×2 (08:41→20:08)
[2016-10-30] MEDS: FAMOTIDINE 20 MG TAB PO SCH (08:42)
[2016-10-30] MEDS: METOPROLOL (XL) 50 MG TAB PO SCH (08:42)
[2016-10-30] MEDS: AMLODIPINE 5 MG TAB PO SCH (08:42)
[2016-10-30] MEDS: MULTIVITAMINS THERAPEUTIC TAB PO SCH (08:42)
[2016-10-30] MEDS: MEGESTROL (40 MG/ML) 10ML CUP PO SCH (08:43)
[2016-10-30] MEDS: predniSONE 20 MG TAB PO SCH (08:43)
[2016-10-30] MEDS ORDERED: MAGNESIUM SULFATE 2 GM/50 ML 50 ML IVPB ONE (09:30)
--- NOTE | 2016-10-30 11:18 | PN ---
DATE: 10/30/2016 SUBJECTIVE: The patient is stable, no acute events overnight. No fevers, chills, nausea or vomitin g. No shortness of breath. OBJECTIVE: VITAL SIGNS: Blood pressure is 135/74, respirations 16, pulse 78, temperature 98.5. HEENT: Head is normocephalic. NECK: Supple. HEART: Regular rate. LUNGS: Show diminished breath sounds at the base. ABDOMEN: Soft, nontender to palpation. No rebound or guarding. EXTREMITIES: Negative for clubbing, cyanosis. No edema. MUSCULOSKELETAL: The patient has noted tophi deformities of his toes. No change. LABORATORY DATA: Shows sodium 139, potassium 4.4, chloride 102, BUN , creatinine 62.35. Magne sium 1.6. White count 16.1, hemoglobin 9.1, hematocrit 27.9, platelet count is 375,000. ASSESSMENT AND PLAN: 1. Nonoliguric acute kidney injury on top of chronic kidney disease with unknown baseline creatinin e. Etiology of acute kidney injury is secondary to acute tubular necrosis. Renal function is impro lizandro, appears to have stabilized in the last 24 hours. At this point, continue current treatment willi n, supportive care, renally dose all medications. 2. Hypomagnesemia. We will replete with magnesium sulfate 2 grams IV x1. 3. Anemia of chronic disease. Continue to monitor hemoglobin and hematocrit levels. 4. Mineral bone disorder. Continue to monitor calcium and phosphorus levels. 5. Acute gouty flare. Continue prednisone. 6. Bronchitis. Continue current antibiotic regimen. 7. Hypertension. Blood pressure controlled. 8. Depression. Continue SSRI. 9. Insomnia. Continue Ambien. Dictated By: HERO LI/FARRAH Conf#: [id number] DID#: [id number]
--- NOTE | 2016-10-30 17:46 | PN ---
Date/Time of Note Date/Time of Note DATE: 10/30/16 TIME: 17:44 Assessment/Plan VTE Prophylaxis VTE Prophylaxis Intervention: heparin Lines/Catheters IV [facility]ter Type [facility]from [facility]): [facility] Urinary Cath still in place: No Assessment/Plan Chief Complaint/Hosp Course 1. Acute gout flare with a diffuse gouty arthritis. The patient currently on prednisone and the patient will be provided with adequate pain control. Unable to use NSAIDs because of worsening renal function -Rehab consult secondary to weakness, accepted into Rehab but pt deciding -F/U on labs with AGNES, RF, ANCA and ESR -Rheum consult 2. Acute bronchitis. Continue antibiotics. Renally dose antibiotics. 3. Nonoliguric acute kidney injury on top of chronic kidney disease with unknown baseline creatinine, most probably secondary to NSAID use. Continue to monitor the BUN and creatinine closely. 4. Essential hypertension. Continue antihypertensives. Blood pressure fairly well controlled. 5. Sinus tachycardia. Unclear etiology, most probably secondary to underlying SIRS. Continue to monitor in telemetry floor. 6. Depression. Continue antidepressants. 7. Dyslipidemia. Continue statins. 8. Microcytic hypochromic anemia, etiology unclear. Will obtain an iron panel. 9. Systemic inflammatory response syndrome with leukocytosis and tachycardia, etiology unclear. Pancultures negative. On antibiotics as per Infectious Disease. 10. Fluid, electrolytes, and nutrition. Low cholesterol diet. 11. Deep venous thrombosis prophylaxis. Subcutaneous heparin. 12. Gastrointestinal prophylaxis. Histamine-2 receptor blockers. Problems: Subjective 24 Hr Interval Summary Constitutional: no complaints Exam/Review of Systems Vital Signs Vitals Vital Signs Date Time Temp Pulse Resp B/P Pulse Ox O2 Delivery O2 Flow Rate FiO2 10/30/16 07:46 98.5 78 16 135/74 97 10/26/16 08:00 Nasal Cannula 2.0 Intake and Output 10/29/16 10/29/16 10/30/16 15:00 23:00 07:00 Intake Total 1250 ml 800 ml Output Total 1900 ml 750 ml Balance -650 ml 50 ml Exam Constitutional: alert, oriented Respiratory: clear to auscultation Cardiovascular: regular rate and rhythm Gastrointestinal: soft, No distended Musculoskeletal: No nl extremities to inspection Results Result Diagram: 10/28/16 0550 10/30/16 0449 Results 24 hrs Laboratory Tests Test 10/30/16 04:49 10/30/16 07:53 Anion Gap 19 H Blood Urea Nitrogen 61 H Calcium Level 9.4 Carbon Dioxide Level 22 Chloride Level 102 Creatinine 2.35 H Glucose Level 103 Magnesium Level 1.6 L Phosphorus Level 4.7 Potassium Level 4.4 Sodium Level 139 Lab Scanned Report REFERENCE LAB Medications Medications Current Medications Ondansetron HCl (Zofran Inj) 4 mg Q6H PRN IV NAUSEA AND/OR VOMITING Last administered on 10/26/16 20:42; Admin Dose 4 MG; Start 10/24/16 at 01:00 Acetaminophen (Tylenol Tab) 650 mg Q6H PRN PO PAIN LEVEL 1-3 OR FEVER; Start at 01:00 Acetaminophen/ Hydrocodone Bitart ([place] (5/325)) 1 tab Q6H PRN PO MODERATE PAIN LEVEL 4-6 Last administered on 10/30/16 04:55; Admin Dose 1 TAB; Start 09/28 at 01:00 Morphine Sulfate (morphine) 2 mg Q4H PRN IV SEVERE PAIN LEVEL 7-10 Last administered on 10/30/16 12:45; Admin Dose 2 MG; Start 10/24/16 at 01:00 Docusate Sodium (Colace) 100 mg Q12H PRN PO CONSTIPATION; Start 10/24/16 at 01: 00 Heparin Sodium (Porcine) (Heparin (5000 Units/0.5 ml)) 5,000 unit Q12 SC Last administered on 10/30/16 08:41; Admin Dose 5,000 UNIT; Start 10/24/16 at 09:00 Amlodipine Besylate (Norvasc) 5 mg DAILY PO Last administered on 10/30/16 08: 42; Admin Dose 5 MG; Start 10/24/16 at 09:00 Metoprolol Succinate (Toprol Xl) 50 mg DAILY PO Last administered on 10/30/16 08:42; Admin Dose 50 MG; Start 10/24/16 at 09:00 Quetiapine Fumarate (Seroquel) 150 mg DAILY PO Last administered on 10/30/16 08:41; Admin Dose 150 MG; Start 10/24/16 at 09:00 Trazodone HCl (Desyrel) 150 mg QHS PO Last administered on 10/29/16 20:32; Admin Dose 150 MG; Start 10/24/16 at 21:00 Atorvastatin Calcium (Lipitor) 10 mg DAILY@21 PO Last administered on 20:32; Admin Dose 10 MG; Start 10/24/16 at 21:00 Levofloxacin (Levaquin) 250 mg DAILY@06 NGT Last administered on 10/30/16 05: 52; Admin Dose 250 MG; Start 10/25/16 at 14:00 Prednisone (Prednisone) 40 mg DAILY PO Last administered on 10/30/16 08:43; Admin Dose 40 MG; Start 10/25/16 at 13:00 Famotidine (Pepcid) 20 mg DAILY PO Last administered on 10/30/16 08:42; Admin Dose 20 MG; Start 10/26/16 at 09:00 Multivitamins Therapeutic (Theragran) 1 tab DAILY PO Last administered on 08:42; Admin Dose 1 TAB; Start 10/27/16 at 11:00 Megestrol Acetate (Megace Susp) 800 mg DAILY PO Last administered on 10/30/16 08:43; Admin Dose 800 MG; Start 10/27/16 at 11:00 Phenol (Cepastat Lozenge) 1 lozenge Q1H PRN MT Sore Throat Last administered on 10/30/16 07:49; Admin Dose 1 LOZENGE; Start 10/29/16 at 19:30 Zolpidem Tartrate (Ambien) 10 mg HS PRN PO INSOMNIA; Start 10/30/16 at 20:30 MATIAS NEWTON Oct 30, 2016 17:46
[2016-10-30 20:00] VITALS: BP 125/67; RESP 18
[2016-10-30] MEDS: traZODone 50 MG TAB PO SCH (20:05)
[2016-10-30] MEDS: ATORVASTATIN 10 MG TAB PO SCH (20:05)
[2016-10-30] MEDS ORDERED: ZOLPIDEM 5 MG TAB PO PRN (20:30)
--- NOTE | 2016-10-30 22:21 | CONS ---
DATE OF ADMISSION: 10/23/2016 DATE OF CONSULTATION: TYPE OF CONSULTATION: Rheumatology. HISTORY OF PRESENT ILLNESS: The patient is a 55-year-old man with multiple medical proble ms including hypertension, hyperlipidemia and depression and also a history of intermittent arthriti s consistent possibly with a history of gout. He has had 4 or 5 years of intermittent episodes of a rthritis at one or another joint, oftentimes at the big toe and other times including at the hands a nd wrists, probably one area or another at a time. He has not been treated for gout apparently in t he past. The episodes generally lasted about 2 weeks, and at times he would take Aleve or Advil. A bout 3 weeks ago, he developed a flu-like syndrome with increased fatigue and malaise and subsequent ly developed arthritis again in the right big toe primarily which persisted in spite of taking some Aleve and Advil. He came to the hospital, and his uric acid was noted to be 14 on admission. Creat inine was basically normal or mildly elevated at around 1.4 on admission, but in the next few days, it increased to over 2 and at one point even over 3, and more recently it's at 2.35 with a BUN of 61 . The patient has also been noted to be anemic with a hemoglobin of 9.1, hematocrit 27.9. On admis mecca, he had leukocytosis at about 23,000 which has decreased to about 16,000. He has been treated with antibiotics as well as Solu-Medrol and then placed on prednisone, which has been decreased to 4 0 mg over the last 6 days. The arthritis has much improved, and at present, he has some pain on sta nding but minimal tenderness at the right foot. The patient also has multiple joint deformities at the hands and some puffiness at the wrists althou gh without definite pain at present, and he describes that he did have episodes of arthritis in thos e areas in the past. He denies a history of significant low back or neck pain. He denies a history of rashes or psoriasis, although occasionally, he mentioned, he has some scaly rashes at the face a nd in the back of the head, unclear if possibly psoriasis. He has never been diagnosed with psorias is apparently. He may have had fevers during the last 3 weeks prior to admission. RHEUMATOLOGIC REVIEW OF SYSTEMS: Otherwise negative for frequent headaches, numbness or paresthesia s, shortness of breath or chest pain, palpitations. No definite frequent abdominal pains, nausea, v omiting, hematemesis or bright red blood per rectum. PAST MEDICAL HISTORY: Positive for depression, hyperlipidemia, hypertension and possibly gout and/o r other arthritis. No history of surgeries. FAMILY HISTORY: Noncontributory. 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 MEDICATIONS: Please see chart. This includes the prednisone at 40 mg daily. ALLERGIES: NO KNOWN ALLERGIES. PHYSICAL EXAMINATION: VITAL SIGNS: Afebrile, blood pressure 135/74, respirations 16, pulse 78. GENERAL: Well-developed, well-nourished man. No acute distress at present. Alert, orien faizan x3. SKIN: Without acute rashes. No evidence of psoriasis at present. HEENT: Without acute oral or ocular lesions. NECK: Without lymphadenopathy. CHEST: Clear to auscultation. HEART: Regular rate and rhythm. ABDOMEN: Soft without masses or tenderness. EXTREMITIES: Without cyanosis or edema. MUSCULOSKELETAL: The right big toe with some erythema and swelling, possible tophus. Minimal tende rness at present. Wrists and multiple hand joints with various deformities but no active synovitis. Other joints with good range of motion without synovitis. NEUROLOGIC: Grossly intact. ASSESSMENT: 1. Acute gouty episode which is subsiding at the right big toe. 2. History of arthritis, possibly only gout versus other arthropathies such as seronegative arthrit is. Doubt rheumatoid arthritis from the history but cannot absolutely rule this out. 3. Renal insufficiency. Unclear if in part due to the nonsteroidal anti-inflammatory drugs that he took a few days ago versus other etiology. 4. Anemia. Again, unclear if the patient has chronic renal insufficiency, although the patient den ies knowing about that. If he does have a systemic inflammatory process, that may have led to bone marrow suppression and anemia. 5. Hypertension. 6. Depression. 7. Hyperlipidemia. PLAN: 1. Will recheck uric acid and CBC and other labs pending including AGNES, ANCA, rheumatoid factor. 2. If he is doing overall much better in terms of the arthritis, will decrease the prednisone to 20 mg daily. 3. Will consider a small dose of allopurinol such as 50 mg (in view of the renal insufficiency) or Uloric in the near future. 4. I will try to discuss the case with his general, Dr. Krishnamurthy, who apparently evaluated him a month prior to the admission. Thank you for having me see the patient rheumatologically. Sincerely, Dictated By: LENY RICK/FARRAH Conf#: [id number] DID#: [id number]
[2016-10-31] MEDS: HYDROCODONE/APAP (5/325) TAB PO PRN (02:50)
[2016-10-31] MEDS: CEPASTAT LOZENGE MT PRN ×4 (02:57→21:40)
[2016-10-31] MEDS: LEVOFLOXACIN 250 MG TAB NGT SCH (05:04)
[2016-10-31] MEDS: morphine 2 MG INJ IV PRN ×5 (05:06→20:39)
[2016-10-31 05:55] LABS: BASOPHILS % 0.2 % (0.0-2.0); EOSINOPHILS % 0.1 % (0.0-7.0); HEMATOCRIT 29.4 % (42.0-52.0); HEMOGLOBIN 9.6 g/dl (14.0-18.0); LYMPHOCYTES # 0.9 10^3/ul (0.8-2.9); LYMPHOCYTES % 6.9 % (15.0-51.0); MEAN CORPUSCULAR HEMOGLOBIN 25.5 pg (29.0-33.0); MEAN CORPUSCULAR HGB CONC 32.7 g/dl (32.0-37.0); MEAN CORPUSCULAR VOLUME 77.9 fl (82.0-101.0); MEAN PLATELET VOLUME 8.9 fl (7.4-10.4); MONOCYTE # 1.1 10^3/ul (0.3-0.9); MONOCYTES % 8.1 % (0.0-11.0); NEUTROPHILS % 84.7 % (39.0-77.0); PLATELET COUNT 391 10^3/UL (140-440); RED BLOOD COUNT 3.77 10^6/ul (4.70-6.10); RED CELL DISTRIBUTION WIDTH 19.3 % (11.5-14.5)
[2016-10-31 06:12] LABS: CONDITION 1; LH ANALYZER COMMENTS 1
[2016-10-31 06:14] LABS: POTASSIUM 4.8 mmol/L (3.5-5.1)
[2016-10-31 06:17] LABS: CREATININE 2.03 mg/dl (0.61-1.24)
[2016-10-31 06:18] LABS: CALCIUM 9.7 mg/dl (8.4-10.2); MAGNESIUM 1.7 mg/dl (1.7-2.5); PHOSPHORUS 5.2 mg/dl (2.5-4.9)
[2016-10-31 07:45] VITALS: BP 126/71; RESP 20
[2016-10-31] MEDS: MEGESTROL (40 MG/ML) 10ML CUP PO SCH (08:44)
[2016-10-31] MEDS: FAMOTIDINE 20 MG TAB PO SCH (08:45)
[2016-10-31] MEDS: MULTIVITAMINS THERAPEUTIC TAB PO SCH (08:45)
[2016-10-31] MEDS: QUETIAPINE 100 MG TAB PO SCH (08:45)
[2016-10-31] MEDS: METOPROLOL (XL) 50 MG TAB PO SCH (08:46)
[2016-10-31] MEDS: HEPARIN 5,000 UNIT/0.5 ML SYG SC SCH ×2 (08:57→20:37)
[2016-10-31] MEDS ORDERED: predniSONE 20 MG TAB PO SCH (09:00)
[2016-10-31] MEDS: AMLODIPINE 5 MG TAB PO SCH (09:16)
--- NOTE | 2016-10-31 11:39 | PN ---
DATE: 10/31/2016 SUBJECTIVE: The patient noted to have discharge from his right toe. No fevers noted. No hemoptysi s, hematemesis. OBJECTIVE: VITAL SIGNS: Blood pressure 125/67, respirations 18, pulse 90, temperature 97.9. HEENT: Head is normocephalic. NECK: Supple. HEART: Regular rate. LUNGS: Show diminished breath sounds at the base. ABDOMEN: Soft, nontender to palpation. No rebound or guarding. EXTREMITIES: Negative for clubbing, cyanosis, no edema. DERMATOLOGIC: No rashes. MUSCULOSKELETAL: The patient toe has noted deformity with tophi, erythematous right toe noted. LABORATORY DATA: Shows sodium 138, potassium 4.8, BUN 53, creatinine 2.03. Uric acid 9.1. White c ount 13.9, hemoglobin 9.6, hematocrit 29.4, platelet count 391. ASSESSMENT AND PLAN: 1. Nonoliguric acute kidney injury on top of chronic kidney disease with unknown baseline creatinin e. Etiology of acute kidney injury is secondary to acute tubular necrosis. Renal function is impro ving. Will continue supportive care, renally dose all meds, avoid nephrotoxins. 2. Hypomagnesemia, improved. Continue to monitor and replete. 3. Anemia of chronic disease. Continue to monitor H and H levels. 4. Mineral bone disorder. Continue to monitor calcium and phosphorus levels. 5. Acute gouty flare. The patient is on prednisone. The patient's toe is noted to have discharge, questionable septic joint. Would recommend orthopedic or podiatry evaluation. Continue current an tibiotics, monitor. 6. Bronchitis. Continue current antibiotic regimen. 7. Hypertension. Blood pressure controlled. 8. Depression. Continue SSRI. 9. Insomnia. Continue Ambien. Dictated By: HERO LI/NTS Conf#: [id number] DID#: [id number]
--- NOTE | 2016-10-31 13:15 | CONS ---
Date/Time of Note Date/Time of Note DATE: 10/31/16 TIME: 13:10 Consult Date/Type/Reason Admit Date/Time Oct 23, 2016 at 23:56 Initial Consult Date October 30, 2016 Reason for Consultation Gout arthritis Subjective Has been having some discharge from the right big toe and it is dressed at this point he denies increased pain has only minimal pain at present. No new complaints. Objective Vital Signs Date Time Temp Pulse Resp B/P Pulse Ox O2 Delivery O2 Flow Rate FiO2 10/31/16 07:45 97.9 80 20 126/71 98 Intake and Output 10/30/16 10/30/16 10/31/16 15:00 23:00 07:00 Intake Total 990 ml 240 ml Output Total 1300 ml 1000 ml Balance -310 ml -760 ml Results/Medications Result Diagram: 10/31/16 0505 10/31/16 0505 Results 24 hrs Laboratory Tests Test 10/30/16 18:10 10/31/16 05:05 Erythrocyte Sedimentation Rate 42 H Anion Gap 17 H Basophils # 0.0 Basophils % 0.2 Blood Morphology Comment Blood Urea Nitrogen 53 H Calcium Level 9.7 Carbon Dioxide Level 26 Chloride Level 100 Creatinine 2.03 H Eosinophils # 0.0 Eosinophils % 0.1 Glucose Level 111 Hematocrit 29.4 L Hemoglobin 9.6 L Lymphocytes # 0.9 Lymphocytes % 6.9 L Magnesium Level 1.7 Mean Corpuscular Hemoglobin 25.5 L Mean Corpuscular Hemoglobin Concent 32.7 Mean Corpuscular Volume 77.9 L Mean Platelet Volume 8.9 Monocytes # 1.1 H Monocytes % 8.1 Neutrophils # 11.0 H Neutrophils % 84.7 H Nucleated Red Blood Cells # 0.0 Nucleated Red Blood Cells % 0.0 Phosphorus Level 5.2 H Platelet Count 391 Potassium Level 4.8 Red Blood Count 3.77 L Red Cell Distribution Width 19.3 H Sodium Level 138 Uric Acid 9.1 H White Blood Count 13.0 H Medications Current Medications Ondansetron HCl (Zofran Inj) 4 mg Q6H PRN IV NAUSEA AND/OR VOMITING Last administered on 10/26/16t 20:42; Admin Dose 4 MG; Start 10/24/16 at 01:00 Acetaminophen (Tylenol Tab) 650 mg Q6H PRN PO PAIN LEVEL 1-3 OR FEVER; Start at 01:00 Acetaminophen/ Hydrocodone Bitart ([place] (5/325)) 1 tab Q6H PRN PO MODERATE PAIN LEVEL 4-6 Last administered on 10/31/16 02:50; Admin Dose 1 TAB; Start 09/28 at 01:00 Morphine Sulfate (morphine) 2 mg Q4H PRN IV SEVERE PAIN LEVEL 7-10 Last administered on 10/31/16 12:27; Admin Dose 2 MG; Start 10/24/16 at 01:00 Docusate Sodium (Colace) 100 mg Q12H PRN PO CONSTIPATION; Start 10/24/16 at 01: 00 Heparin Sodium (Porcine) (Heparin (5000 Units/0.5 ml)) 5,000 unit Q12 SC Last administered on 10/30/16 08:41; Admin Dose 5,000 UNIT; Start 10/24/16 at 09:00 Amlodipine Besylate (Norvasc) 5 mg DAILY PO Last administered on 10/31/16 09: 16; Admin Dose 5 MG; Start 10/24/16 at 09:00 Metoprolol Succinate (Toprol Xl) 50 mg DAILY PO Last administered on 10/31/16 08:46; Admin Dose 50 MG; Start 10/24/16 at 09:00 Quetiapine Fumarate (Seroquel) 150 mg DAILY PO Last administered on 10/31/16 08:45; Admin Dose 150 MG; Start 10/24/16 at 09:00 Trazodone HCl (Desyrel) 150 mg QHS PO Last administered on 10/30/16 20:05; Admin Dose 150 MG; Start 10/24/16 at 21:00 Atorvastatin Calcium (Lipitor) 10 mg DAILY@21 PO Last administered on 20:05; Admin Dose 10 MG; Start 10/24/16 at 21:00 Levofloxacin (Levaquin) 250 mg DAILY@06 NGT Last administered on 10/31/16 05: 04; Admin Dose 250 MG; Start 10/25/16 at 14:00 Famotidine (Pepcid) 20 mg DAILY PO Last administered on 10/31/16 08:45; Admin Dose 20 MG; Start 10/26/16 at 09:00 Multivitamins Therapeutic (Theragran) 1 tab DAILY PO Last administered on 08:45; Admin Dose 1 TAB; Start 10/27/16 at 11:00 Megestrol Acetate (Megace Susp) 800 mg DAILY PO Last administered on 10/31/16 08:44; Admin Dose 800 MG; Start 10/27/16 at 11:00 Phenol (Cepastat Lozenge) 1 lozenge Q1H PRN MT Sore Throat Last administered on 10/31/16 05:04; Admin Dose 1 LOZENGE; Start 10/29/16 at 19:30 Zolpidem Tartrate (Ambien) 10 mg HS PRN PO INSOMNIA Last administered on 20:35; Admin Dose 10 MG; Start 10/30/16 at 20:30 Prednisone (Prednisone) 20 mg DAILY PO Last administered on 10/31/16 08:45; Admin Dose 20 MG; Start 10/31/16 at 09:00 Assessment/Plan Chief Complaint/Hosp Course 1 acute gout right foot big toe draining likely tophaceous fluid. Doubt infection as there is no or minimal tenderness or significant surrounding erythema at the foot at this point. 2 old arthritic changes at the hands and wrists. Unclear if due to gout inflammatory arthropathy. 3 renal insufficiency slightly improved 4 anemia likely chronic Plan 1 continue prednisone at 20 mg daily. 2 agree with the other plans Problems: LENY LOPEZ MD Oct 31, 2016 13:15
[2016-10-31 19:52] VITALS: BP 99/54; RESP 18
[2016-10-31] MEDS: ATORVASTATIN 10 MG TAB PO SCH (20:34)
[2016-10-31] MEDS: traZODone 50 MG TAB PO SCH (20:36)
--- NOTE | 2016-11-01 06:23 | DS ---
DATE OF ADMISSION: 10/31/2016 DATE OF DISCHARGE: 10/31/2016 DISCHARGE DIAGNOSES: 1. Acute gout flare-up, with involvement of the right foot big toe, with draining likely tophaceous fluid. Unlikely there is any infection. Continue prednisone. No NSAIDs secondary to acute kidney injury. 2. Acute kidney injury on top of possible CKD, with unknown baseline creatinine. Acute kidney injur y may be secondary NSAIDs. The patient was being followed by renal during this hospitalization. Wm chi is currently stable. 3. Debility secondary to acute gouty flare-up, as well as old arthritic changes of the hands and wr ists. It is unclear if this is due to gouty inflammatory arthropathy, as may also be secondary to r heumatoid arthritis. Workup is currently pending. Renal consultation is appreciated. 4. Acute bronchitis, likely viral. No need for further antibiotics. 5. Hypertension. Continue antihypertensives. 6. Tachycardia, likely secondary SIRS. Now stable. 7. Depression. Continue antidepressants. 8. Dyslipidemia. Continue statins. 9. Microcytic anemia secondary to chronic disease from underlying inflammatory processes. 10. Systemic inflammatory response syndrome secondary to likely viral upper respiratory infection a nd/or pain syndrome from acute gouty arthritis. Now stable. HOSPITAL COURSE: The patient is a 55-year-old male with a history of untreated gout, hypertension, depression and dyslipidemia. The patient presented with generalized malaise, body ache and SIRS. Th e patient was felt to have an upper respiratory infection. He also had a gouty flare-up. The patie nt also had renal insufficiency and was given IV steroids. The patient was not given any further NS AIDs, allopurinol or colchicine secondary to his renal failure. The patient was seen by nephrology, as well as ID, and rheumatology during the hospitalization. The patient also had an echo that show ed a normal EF and stage I diastolic dysfunction. The patient did have deformities in his hands and wrists. Unclear if this is from gout or from another arthritic process. Workup for rheumatoid art hritis was initiated. But the patient does have a reported history of gout in the past that he was not treating. The patient did get somewhat better with the prednisone. Once again, no colchicine, I ndomethacin or allopurinol was given secondary to renal insufficiency initially. The patient was re ceiving steroids during his hospitalization. Rheumatology felt that ultimately the patient may bene fit from a small dose of allopurinol or Uloric in the near future. The patient's PCP is Dr. Krishnamurthy. Rheumatology was to discuss the case with his primary. The patient did have debility from his unde rlying arthritis and it was felt that he would be appropriate for inpatient rehabilitation, as he wa s unable to ambulate on his own and required assistance. He was also accepted into inpatient rehabil itation. On the day of discharge the patient's vitals, labs, and physical exam were stable. He had no further acute complaints and his questions were answered. CONDITION ON DISCHARGE: Stable. DISPOSITION: To inpatient rehabilitation. MEDICATIONS: The patient is to continue his inpatient medications. Medication reconciliation is to be completed. FOLLOWUP: The patient is to follow up with his physicians at inpatient rehabilitation. Greater than 30 minutes was spent coordinating the discharge of this patient. Dictated By: MATIAS NEWTON MD BS/NTS Conf#: [id number] DID#: [id number]
[2016-11-01 12:38] LABS: MYELOPEROXIDASE ANTIBODY <1.0 AI; PROTEINASE-3 ANTIBODY <1.0 AI
[2016-11-01 14:01] LABS: ANA SCREEN NEGATIVE (NEGATIVE)
== END 2016-10-31 22:00 | DRG 553 ==
LOC: E/R 21:17 → TEL 23:56 → MS2 10-28 20:15
PROVIDERS: ADMIT Student in an Organized Health Care Education/Training Program; ATTEND Student in an Organized Health Care Education/Training Program
DX: M1A.9XX1 Chronic gout, unspecified, with tophus (tophi) (principal); N17.0 Acute kidney failure with tubular necrosis; R65.10 Systemic inflammatory response syndrome (SIRS) of non-infectious origin without acute organ dysfunction; L03.115 Cellulitis of right lower limb; E83.42 Hypomagnesemia; I12.9 Hypertensive chronic kidney disease with stage 1 through stage 4 chronic kidney disease, or unspecified chronic kidney disease; N18.9 Chronic kidney disease, unspecified; J20.9 Acute bronchitis, unspecified; F32.9 Major depressive disorder, single episode, unspecified; D50.9 Iron deficiency anemia, unspecified; R53.81 Other malaise; E78.5 Hyperlipidemia, unspecified; N14.1 Nephropathy induced by other drugs, medicaments and biological substances; T39.395A Adverse effect of other nonsteroidal anti-inflammatory drugs [NSAID], initial encounter; Y92.9 Unspecified place or not applicable; G47.00 Insomnia, unspecified
CPT/HCPCS: 36415; 71010; 73630; 76775; 80048; 80053; 80061; 80202; 81001; 81003; 82043; 82150; 82728; 83036; 83540; 83605; 83690; 83735; 83970; 84100; 84155; 84300; 84443; 84484; 84560; 85025; 85651; 86021; 86038; 86430; 87040; 87081; 87086; 87400; 89190; 93005; 93306; 96374; 96375; 97110; 97116; 97162; 97530; J1170; J1885; J2270; J2405; J2543; J2920; J2930; J3370; J3475; J3480; J7030; J7040; J7050; J7512

== ENCOUNTER 2016-10-31 16:19 | Inpatient (IN) | payer MEDICARE, OTHER ==
[~2016-10-31] VITALS: Ht 170.2 cm; Wt 61.8 kg
[~2016-10-31 16:19] MED LIST: AMLO5TAB4 PO; METO50TA16 PO; QUET100T PO; SIMV20TA PO; TRAZ150T65 PO
[2016-10-31 22:30] VITALS: Ht 170.2 cm; Wt 61.8 kg
[2016-10-31] MEDS: HEPARIN 5,000 UNIT/0.5 ML SYG SC SCH (23:00)
[2016-10-31] MEDS ORDERED: ZOLPIDEM 5 MG TAB PO PRN (23:00)
[2016-10-31] MEDS: ATORVASTATIN 10 MG TAB PO SCH (23:00)
[2016-10-31] MEDS ORDERED: NACL 0.9% 3 ML SYG IV SCH (23:00)
[2016-10-31] MEDS ORDERED: ACETAMINOPHEN 325 MG TAB PO PRN (23:00)
[2016-10-31] MEDS ORDERED: ONDANSETRON 4 MG INJ IV PRN (23:00)
[2016-10-31] MEDS ORDERED: DOCUSATE SODIUM 100 MG CAP PO PRN (23:00)
[2016-10-31] MEDS: traZODone 50 MG TAB PO SCH (23:00)
[2016-10-31] MEDS: HYDROCODONE/APAP (5/325) TAB PO PRN (23:46)
[2016-10-31 23:50] LABS: ADD UMIC NO; URINE BILIRUBIN (Dip) NEGATIVE (NEGATIVE); URINE BLOOD (Dip) NEGATIVE (NEGATIVE); URINE COLOR LT. YELLOW (YELLOW); URINE GLUCOSE (Dip) NEGATIVE (NEGATIVE); URINE KETONES (Dip) NEGATIVE (NEGATIVE); URINE LEUKOCYTE ESTERASE (Dip) NEGATIVE (NEGATIVE); URINE NITRITE (Dip) NEGATIVE (NEGATIVE); URINE TOTAL PROTEIN (Dip) NEGATIVE (NEGATIVE); URINE UROBILINOGEN (Dip) 0.2 E.U./dL (0.1-1.0)
[2016-11-01 00:27] VITALS: BP 109/68; RESP 18
[2016-11-01] MEDS: morphine 2 MG INJ IV PRN ×2 (03:58→20:27)
[2016-11-01] MEDS ORDERED: LACTULOSE 30ML CUP PO PRN (06:30)
[2016-11-01] MEDS ORDERED: BISACODYL 10 MG SUPP PR PRN (06:30)
[2016-11-01 06:58] LABS: EOSINOPHILS # 0.1 10^3/ul (0.0-0.5); EOSINOPHILS % 0.6 % (0.0-7.0); HEMATOCRIT 30.1 % (42.0-52.0); HEMOGLOBIN 9.8 g/dl (14.0-18.0); LYMPHOCYTES # 1.1 10^3/ul (0.8-2.9); LYMPHOCYTES % 8.6 % (15.0-51.0); MEAN CORPUSCULAR HEMOGLOBIN 25.3 pg (29.0-33.0); MEAN CORPUSCULAR HGB CONC 32.5 g/dl (32.0-37.0); MEAN PLATELET VOLUME 8.7 fl (7.4-10.4); MONOCYTE # 1.1 10^3/ul (0.3-0.9); MONOCYTES % 9.1 % (0.0-11.0); NEUTROPHIL # 10.1 10^3/ul (1.6-7.5); NEUTROPHILS % 81.7 % (39.0-77.0); PLATELET COUNT 371 10^3/UL (140-440); RED BLOOD COUNT 3.86 10^6/ul (4.70-6.10); RED CELL DISTRIBUTION WIDTH 19.8 % (11.5-14.5); UNCORRECTED WBC 12.4 10^3/ul (4.8-10.8); WHITE BLOOD COUNT 12.4 10^3/ul (4.8-10.8)
[2016-11-01 07:11] LABS: POTASSIUM 4.7 mmol/L (3.5-5.1)
[2016-11-01 07:13] LABS: ALBUMIN/GLOBULIN RATIO 0.85; BILIRUBIN,INDIRECT 0.1 mg/dl (0-1.1); BILIRUBIN,TOTAL 0.1 mg/dl (0.2-1.3); TOTAL PROTEIN 6.5 g/dl (6.1-8.1)
[2016-11-01 07:14] LABS: CALCIUM 9.4 mg/dl (8.4-10.2)
[2016-11-01 07:18] LABS: CONDITION 1; LH ANALYZER COMMENTS 1
[2016-11-01] MEDS: MEGESTROL (40 MG/ML) 10ML CUP PO SCH (08:42)
[2016-11-01] MEDS: DOCUSATE SODIUM 100 MG CAP PO SCH ×2 (08:42→21:00)
[2016-11-01] MEDS: MULTIVITAMINS THERAPEUTIC TAB PO SCH (08:43)
[2016-11-01] MEDS: METOPROLOL (XL) 50 MG TAB PO SCH (08:43)
[2016-11-01] MEDS: QUETIAPINE 100 MG TAB PO SCH (08:44)
[2016-11-01] MEDS: QUETIAPINE 25 MG TAB PO SCH (08:44)
[2016-11-01] MEDS: predniSONE 20 MG TAB PO SCH (08:44)
[2016-11-01] MEDS: HEPARIN 5,000 UNIT/0.5 ML SYG SC SCH ×3 (08:45→20:30)
[2016-11-01] MEDS: FAMOTIDINE 20 MG TAB PO SCH (08:46)
[2016-11-01] MEDS: HYDROCODONE/APAP (5/325) TAB PO PRN ×3 (08:53→16:41)
[2016-11-01] MEDS: AMLODIPINE 5 MG TAB PO SCH (09:39)
--- NOTE | 2016-11-01 11:00 | PN ---
DATE: 11/01/2016 SUBJECTIVE: The patient is stable. No acute events overnight. The patient was transferred to [facility] overnight. No other events noted. OBJECTIVE: VITAL SIGNS: Blood pressure 109/60, respiration 18, pulse 68, temperature 98.9. HEENT: Head is normocephalic. NECK: Supple. HEART: Regular rate. LUNGS: Show diminished breath sounds at base. ABDOMEN: Soft, nontender to palpation. No rebound or guarding. EXTREMITIES: Negative for clubbing, cyanosis, edema. DERMATOLOGIC: No rashes. MUSCULOSKELETAL: Noted to have tophi and deformity of his toes. NEUROLOGIC: No focal deficits. MEDICATIONS: The patient's medications have been reviewed. LABORATORY DATA: Shows a white count 12.4, hemoglobin 9.8, hematocrit 30.1, platelet count 371. So dium 139, potassium 4.7, chloride 101, BUN 53, creatinine 2.0. ASSESSMENT AND PLAN: 1. Nonoliguric acute kidney injury on top of chronic kidney disease with unknown baseline creatinin e. Etiology of acute kidney injury is secondary to acute tubular necrosis. Renal function is impro ving. Continue supportive care, renally dose all meds, avoid nephrotoxins. 2. Hypomagnesemia, improved. Continue to monitor and replete. 3. Anemia. Continue to monitor hemoglobin and hematocrit levels. 4. Mineral bone disorder. Continue to monitor calcium and phosphorus levels. 5. Acute gouty flare. The patient is on prednisone. We will continue. The patient is unable to t olerate NSAIDs due to acute kidney injury. 6. Bronchitis, improving. Continue medical management. 7. Hypertension. Continue current blood pressure regimen. 8. Depression. Continue SSRI. 9. Insomnia. Continue Ambien as needed. Dictated By: HERO LI/NTS Conf#: [id number] DID#: [id number]
--- NOTE | 2016-11-01 13:28 | CONS ---
DATE OF ADMISSION: 10/31/2016 DATE OF CONSULTATION: 11/01/2016 REHABILITATION POST ADMISSION PHYSICIAN EVALUATION REHABILITATION IMPAIRMENT CATEGORY: Gouty arthritis flare affecting multiple joints including bilateral elbows, wrists, knees and feet. ACTIVE COMORBIDITIES: 1. Bronchitis. 2. Acute on chronic kidney disease. 3. Hypertension. 4. Dyslipidemia. 5. Depression. 6. Impairments in self-care and mobility. 7. Orthostatic hypotension. HISTORY OF PRESENT ILLNESS: The patient is a pleasant 55-year-old right-handed gentleman with a history of gouty arthritis, chronic kidney disease, hypertension and dyslipidemia who was admitted with significant diffuse joint pain with gouty flare in addition to acute renal failure and bronchitis. The patient's hospital course also notable for leukocytosis, tachycardia and worsening renal function. The patient has now been cleared to transfer to the rehabilitation unit for comprehensive interdisciplinary rehab care. FUNCTIONAL HISTORY: Prior to recent events, he was independent in self-care tasks and mobility. Currently, he requires moderate assist for self-care and mobility tasks. SOCIAL HISTORY: The patient lives at home alone and hopes to return there upon discharge. PAST MEDICAL HISTORY: 1. Gouty arthritis. 2. Hypertension. 3. Hyperlipidemia. 4. Depression. CURRENT MEDICATIONS: 1. Norvasc 5 mg p.o. daily. 2. Lipitor 10 mg p.o. daily. 3. Colace 100 mg b.i.d. p.r.n. 4. Pepcid 20 mg p.o. daily. 5. Heparin subQ. 6. [place] p.r.n. 7. Metoprolol 50 mg p.o. daily. 8. Multivitamin 1 tab p.o. daily. 9. Prednisone 20 mg p.o. daily. 10. Seroquel 150 p.o. daily. 11. Desyrel 150 p.o. at bedtime. 12. Ambien p.r.n. ALLERGIES: THE PATIENT WITH NO KNOWN DRUG ALLERGIES. PHYSICAL EXAMINATION: VITAL SIGNS: The patient is currently afebrile with stable vital signs. HEENT: Extraocular motion intact. Oropharynx clear. NECK: Supple. LUNGS: Clear anteriorly. CARDIAC: S1, S2. ABDOMEN: Soft, nontender, positive bowel sounds. NEUROLOGIC: He is awake and alert and oriented x3. He will follow simple 1- step commands. He demonstrates antigravity strength in bilateral upper extremity and lower extremity. He has impaired dynamic balance. EXTREMITIES: Extremity exam does reveal arthritic changes in bilateral hands, wrist, nodules in bilateral elbows and feet. PLAN: The patient has been admitted for comprehensive interdisciplinary acute rehab and is anticipated to tolerate 3 hours of daily therapy in divided doses for at least 5/7 days a week. The treatment plan will include: 1. Physical therapy to focus on bed mobility, transfers, and household ambulation with the goal of having the patient reach a standby assist level. 2. Occupational therapy to focus on hygiene, grooming, dressing, bathing, and toileting activities with the goal of having the patient reach standby assist level. 3. Rehabilitation nursing for carryover of therapeutic interventions, the goal of continent of bowel and bladder, and the goal of pain adequately managed on oral medications. REHABILITATION BARRIER: Pain. INTERVENTION FOR BARRIER: Comprehensive interdisciplinary approach. ESTIMATED LENGTH OF STAY: 14 days. DISPOSITION GOAL: Home. I acknowledge that I performed a full physical examination on this patient within 24 hours of admission to the rehabilitation unit and believe the patient is a good candidate for comprehensive interdisciplinary rehab care and is anticipated to make reasonable goals in a reasonable period of time as outlined above. Dictated By: REFUGIO ZHANG/FARRAH Conf#: [id number] DID#: [id number] MTDD
--- NOTE | 2016-11-01 14:47 | CONS ---
Date/Time of Note Date/Time of Note DATE: 11/01/16 TIME: 14:31 Consult Date/Type/Reason Admit Date/Time Oct 31, 2016 at 22:12 Initial Consult Date Oct 31, 2016 Reason for Consultation Gout arthritis Subjective Right foot pain much improved still with some but some decreased swelling discharged persists. No additional arthritis active. Objective Right foot with less tenderness. Some discharge persists. Other joints without active synovitis. Chest clear to auscultation Heart regular rate and rhythm Abdomen abdomen soft without definite tenderness. Vital Signs Date Time Temp Pulse Resp B/P Pulse Ox O2 Delivery O2 Flow Rate FiO2 11/01/16 00:27 98.0 68 18 109/68 96 Intake and Output 10/31/16 10/31/16 11/01/16 15:00 23:00 07:00 Intake Total 550 ml Output Total 1700 ml Balance -1150 ml Results/Medications Result Diagram: 11/01/16 0600 11/01/16 0600 Results 24 hrs Laboratory Tests Test 10/31/16 22:40 11/01/16 06:00 Urine Bilirubin NEGATIVE Urine Clarity CLEAR Urine Color LT. YELLOW Urine Glucose NEGATIVE Urine Hemoglobin NEGATIVE Urine Ketones NEGATIVE Urine Leukocyte Esterase NEGATIVE Urine Nitrite NEGATIVE Urine Specific [place] <=1.005 L Urine Total Protein NEGATIVE Urine Urobilinogen 0.2 E.U./dL Urine pH 5.5 Alanine Aminotransferase (ALT/SGPT) 25 Albumin 3.0 L Albumin/Globulin Ratio 0.85 Alkaline Phosphatase 84 Anion Gap 19 H Aspartate Amino Transf (AST/SGOT) 22 Basophils # 0.0 Basophils % 0.0 Blood Morphology Comment Blood Urea Nitrogen 53 H Calcium Level 9.4 Carbon Dioxide Level 24 Chloride Level 101 Creatinine 2.00 H Direct Bilirubin 0.00 Eosinophils # 0.1 Eosinophils % 0.6 Globulin 3.50 H Glucose Level 106 Hematocrit 30.1 L Hemoglobin 9.8 L Indirect Bilirubin 0.1 Lymphocytes # 1.1 Lymphocytes % 8.6 L Mean Corpuscular Hemoglobin 25.3 L Mean Corpuscular Hemoglobin Concent 32.5 Mean Corpuscular Volume 78.0 L Mean Platelet Volume 8.7 Monocytes # 1.1 H Monocytes % 9.1 Neutrophils # 10.1 H Neutrophils % 81.7 H Nucleated Red Blood Cells # 0.0 Nucleated Red Blood Cells % 0.0 Platelet Count 371 Potassium Level 4.7 Red Blood Count 3.86 L Red Cell Distribution Width 19.8 H Sodium Level 139 Total Bilirubin 0.1 L Total Protein 6.5 White Blood Count 12.4 H Medications Current Medications Morphine Sulfate (morphine) 2 mg Q4H PRN IV PAIN Last administered on 03:58; Admin Dose 2 MG; Start 10/31/16 at 23:00 Multivitamins Therapeutic (Theragran) 1 tab DAILY PO Last administered on 08:43; Admin Dose 1 TAB; Start 11/01/16 at 09:00 Ondansetron HCl (Zofran Inj) 4 mg Q6H PRN IV NAUSEA AND/OR VOMITING; Start at 23:00 Phenol (Cepastat Lozenge) 1 lozenge Q1H PRN [place] SORE THROAT; Start 10/31/16 at 23:00 Prednisone (Prednisone) 20 mg DAILY PO Last administered on 11/01/16 08:44; Admin Dose 20 MG; Start 11/01/16 at 09:00 Quetiapine Fumarate (Seroquel) 100 mg DAILY PO Last administered on 11/01/16 08:44; Admin Dose 100 MG; Start 11/01/16 at 09:00 Quetiapine Fumarate (Seroquel) 50 mg DAILY PO Last administered on 11/01/16 08 :44; Admin Dose 50 MG; Start 11/01/16 at 09:00 Trazodone HCl (Desyrel) 150 mg HS PO ; Start 10/31/16 at 23:00 Zolpidem Tartrate (Ambien) 10 mg HS PRN PO INSOMNIA Last administered on 23:47; Admin Dose 10 MG; Start 10/31/16 at 23:00 Acetaminophen (Tylenol Tab) 650 mg Q6H PRN PO PAIN AND OR ELEVATED TEMP; Start 10/31/16 at 23:00 Amlodipine Besylate (Norvasc) 5 mg DAILY PO Last administered on 11/01/16 09: 39; Admin Dose 5 MG; Start 11/01/16 at 09:00 Atorvastatin Calcium (Lipitor) 10 mg DAILY@21 PO ; Start 10/31/16 at 23:00 Docusate Sodium (Colace) 100 mg Q12H PRN PO CONSTIPATION; Start 10/31/16 at 23: 00 Famotidine (Pepcid) 20 mg DAILY PO Last administered on 11/01/16 08:46; Admin Dose 20 MG; Start 11/01/16 at 09:00 Heparin Sodium (Porcine) (Heparin (5000 Units/0.5 ml)) 5,000 unit Q12 SC ; Start 10/31/16 at 23:00 Acetaminophen/ Hydrocodone Bitart ([place] (5/325)) 1 tab Q6H PRN PO PAIN Last administered on 11/01/16 08:53; Admin Dose 1 TAB; Start 10/31/16 at 23:00 Megestrol Acetate (Megace Susp) 800 mg DAILY PO Last administered on 11/01/16 08:42; Admin Dose 800 MG; Start 11/01/16 at 09:00 Metoprolol Succinate (Toprol Xl) 50 mg DAILY PO Last administered on 11/01/16 08:43; Admin Dose 50 MG; Start 11/01/16 at 09:00 Docusate Sodium (Colace) 100 mg BID PO Last administered on 11/01/16 08:42; Admin Dose 100 MG; Start 11/01/16 at 09:00 Senna (Senokot) 1 tab HS PO ; Start 11/01/16 at 21:00 Bisacodyl (Dulcolax Supp) 10 mg DAILY PRN [place] CONSTIPATION; Start 11/01/16 at 06 :30 Lactulose (Enulose) 20 gm DAILY PRN PO CONSTIPATION; Start 11/01/16 at 06:30 Acetaminophen/ Hydrocodone Bitart ([place] (5/325)) 2 tab Q4H PRN PO severe pain Last administered on 11/01/16 12:47; Admin Dose 2 TAB; Start 11/01/16 at 11:30 Assessment/Plan Chief Complaint/Hosp Course 1 Acute gout, tophacious with hyperuricemia and recent arthritis in a typical joint 2. Renal insufficiency somewhat improved 3 anemia 4 depression Plan 1 is acute episode is markedly improved, we will him we will start patient on small dose of allopurinol at 50 mg daily. 2 continue prednisone 20 mg daily at this point Problems: LENY LOPEZ MD Nov 01, 2016 14:42
--- NOTE | 2016-11-01 16:28 | PN ---
Date/Time of Note Date/Time of Note DATE: 11/01/16 TIME: 16:25 Assessment/Plan VTE Prophylaxis VTE Prophylaxis Intervention: heparin Lines/Catheters IV Catheter Type (from Nrsg): [place] Assessment/Plan Chief Complaint/Hosp Course S- events noted. Moderate pain but better. cough- green/brown expectoration. sore throat. no fever. trouble sleeping. O- vss PE No pallor s1s2 reg; no m r g ctab bs+ nt nd no r r g Rt toe dressed A/P 1. Ftt; Ac tophaceous gouty arthritis; stable, cont pt/ot/ prednisone/ allupurinol 2. ARF, improved. no nsaids 3. Htn 4. Past tobacco 5. Recent Bronchitis; supportive care 6. Depression 7. Anemia; inflammatory 8. Nephrolithiasis 9. Dyslipidemia 10. Bipolar? Problems: Exam/Review of Systems Vital Signs Vitals Vital Signs Date Time Temp Pulse Resp B/P Pulse Ox O2 Delivery O2 Flow Rate FiO2 11/01/16 00:27 98.0 68 18 109/68 96 Intake and Output 10/31/16 10/31/16 11/01/16 15:00 23:00 07:00 Intake Total 550 ml Output Total 1700 ml Balance -1150 ml Results Result Diagram: 11/01/16 0600 11/01/16 0600 Results 24 hrs Laboratory Tests Test 10/31/16 22:40 11/01/16 06:00 Urine Bilirubin NEGATIVE Urine Clarity CLEAR Urine Color LT. YELLOW Urine Glucose NEGATIVE Urine Hemoglobin NEGATIVE Urine Ketones NEGATIVE Urine Leukocyte Esterase NEGATIVE Urine Nitrite NEGATIVE Urine Specific [place] <=1.005 L Urine Total Protein NEGATIVE Urine Urobilinogen 0.2 E.U./dL Urine pH 5.5 Alanine Aminotransferase (ALT/SGPT) 25 Albumin 3.0 L Albumin/Globulin Ratio 0.85 Alkaline Phosphatase 84 Anion Gap 19 H Aspartate Amino Transf (AST/SGOT) 22 Basophils # 0.0 Basophils % 0.0 Blood Morphology Comment Blood Urea Nitrogen 53 H Calcium Level 9.4 Carbon Dioxide Level 24 Chloride Level 101 Creatinine 2.00 H Direct Bilirubin 0.00 Eosinophils # 0.1 Eosinophils % 0.6 Globulin 3.50 H Glucose Level 106 Hematocrit 30.1 L Hemoglobin 9.8 L Indirect Bilirubin 0.1 Lymphocytes # 1.1 Lymphocytes % 8.6 L Mean Corpuscular Hemoglobin 25.3 L Mean Corpuscular Hemoglobin Concent 32.5 Mean Corpuscular Volume 78.0 L Mean Platelet Volume 8.7 Monocytes # 1.1 H Monocytes % 9.1 Neutrophils # 10.1 H Neutrophils % 81.7 H Nucleated Red Blood Cells # 0.0 Nucleated Red Blood Cells % 0.0 Platelet Count 371 Potassium Level 4.7 Red Blood Count 3.86 L Red Cell Distribution Width 19.8 H Sodium Level 139 Total Bilirubin 0.1 L Total Protein 6.5 White Blood Count 12.4 H Medications Medications Current Medications Morphine Sulfate (morphine) 2 mg Q4H PRN IV PAIN Last administered on 03:58; Admin Dose 2 MG; Start 10/31/16 at 23:00 Multivitamins Therapeutic (Theragran) 1 tab DAILY PO Last administered on 08:43; Admin Dose 1 TAB; Start 11/01/16 at 09:00 Ondansetron HCl (Zofran Inj) 4 mg Q6H PRN IV NAUSEA AND/OR VOMITING; Start at 23:00 Phenol (Cepastat Lozenge) 1 lozenge Q1H PRN [place] SORE THROAT; Start 10/31/16 at 23:00 Prednisone (Prednisone) 20 mg DAILY PO Last administered on 11/01/16 08:44; Admin Dose 20 MG; Start 11/01/16 at 09:00 Quetiapine Fumarate (Seroquel) 100 mg DAILY PO Last administered on 11/01/16 08:44; Admin Dose 100 MG; Start 11/01/16 at 09:00 Quetiapine Fumarate (Seroquel) 50 mg DAILY PO Last administered on 11/01/16 08 :44; Admin Dose 50 MG; Start 11/01/16 at 09:00 Trazodone HCl (Desyrel) 150 mg HS PO ; Start 10/31/16 at 23:00 Zolpidem Tartrate (Ambien) 10 mg HS PRN PO INSOMNIA Last administered on 23:47; Admin Dose 10 MG; Start 10/31/16 at 23:00 Acetaminophen (Tylenol Tab) 650 mg Q6H PRN PO PAIN AND OR ELEVATED TEMP; Start 10/31/16 at 23:00 Amlodipine Besylate (Norvasc) 5 mg DAILY PO Last administered on 11/01/16 09: 39; Admin Dose 5 MG; Start 11/01/16 at 09:00 Atorvastatin Calcium (Lipitor) 10 mg DAILY@21 PO ; Start 10/31/16 at 23:00 Docusate Sodium (Colace) 100 mg Q12H PRN PO CONSTIPATION; Start 10/31/16 at 23: 00 Famotidine (Pepcid) 20 mg DAILY PO Last administered on 11/01/16 08:46; Admin Dose 20 MG; Start 11/01/16 at 09:00 Heparin Sodium (Porcine) (Heparin (5000 Units/0.5 ml)) 5,000 unit Q12 SC ; Start 10/31/16 at 23:00 Acetaminophen/ Hydrocodone Bitart ([place] (5/325)) 1 tab Q6H PRN PO PAIN Last administered on 11/01/16 08:53; Admin Dose 1 TAB; Start 10/31/16 at 23:00 Megestrol Acetate (Megace Susp) 800 mg DAILY PO Last administered on 11/01/16 08:42; Admin Dose 800 MG; Start 11/01/16 at 09:00 Metoprolol Succinate (Toprol Xl) 50 mg DAILY PO Last administered on 11/01/16 08:43; Admin Dose 50 MG; Start 11/01/16 at 09:00 Docusate Sodium (Colace) 100 mg BID PO Last administered on 11/01/16 08:42; Admin Dose 100 MG; Start 11/01/16 at 09:00 Senna (Senokot) 1 tab HS PO ; Start 11/01/16 at 21:00 Bisacodyl (Dulcolax Supp) 10 mg DAILY PRN [place] CONSTIPATION; Start 11/01/16 at 06 :30 Lactulose (Enulose) 20 gm DAILY PRN PO CONSTIPATION; Start 11/01/16 at 06:30 Acetaminophen/ Hydrocodone Bitart ([place] (5/325)) 2 tab Q4H PRN PO severe pain Last administered on 11/01/16 12:47; Admin Dose 2 TAB; Start 11/01/16 at 11:30 Allopurinol (Zyloprim) 50 mg DAILY PO ; Start 11/02/16 at 09:00 OTONIEL MOREJON MD Nov 01, 2016 16:28
[2016-11-01] MEDS ORDERED: GUAIFENESIN/DM 5ML CUP PO PRN (16:30)
[2016-11-01] MEDS ORDERED: ALBUTEROL HFA 8 GM INHALER INH PRN (16:30)
[2016-11-01] MEDS: ATORVASTATIN 10 MG TAB PO SCH (20:21)
[2016-11-01] MEDS: traZODone 50 MG TAB PO SCH (20:21)
[2016-11-01] MEDS: SENNA TAB PO SCH (21:00)
[2016-11-01 21:44] VITALS: BP 109/65; RESP 18
[2016-11-01] MEDS: ZOLPIDEM 5 MG TAB PO PRN (21:57)
[2016-11-02] MEDS: CEPASTAT LOZENGE MT PRN ×4 (00:38→21:03)
[2016-11-02] MEDS: morphine 2 MG INJ IV PRN ×2 (05:32→21:06)
[2016-11-02] MEDS: HYDROCODONE/APAP (5/325) TAB PO PRN ×3 (07:29→18:11)
[2016-11-02 07:39] LABS: POTASSIUM 4.6 mmol/L (3.5-5.1)
[2016-11-02 07:41] LABS: CREATININE 2.03 mg/dl (0.61-1.24)
[2016-11-02 07:42] LABS: CALCIUM 9.7 mg/dl (8.4-10.2); MAGNESIUM 1.3 mg/dl (1.7-2.5); PHOSPHORUS 4.1 mg/dl (2.5-4.9)
[2016-11-02 07:48] LABS: INR 1.03; PROTIME 13.5 Sec (12.2-14.2); PT RATIO 1.1
[2016-11-02 07:52] LABS: EOSINOPHILS # 0.1 10^3/ul (0.0-0.5); EOSINOPHILS % 0.6 % (0.0-7.0); HEMATOCRIT 31.6 % (42.0-52.0); HEMOGLOBIN 10.1 g/dl (14.0-18.0); LYMPHOCYTES # 1.4 10^3/ul (0.8-2.9); LYMPHOCYTES % 11.1 % (15.0-51.0); MEAN CORPUSCULAR HEMOGLOBIN 25.1 pg (29.0-33.0); MEAN CORPUSCULAR HGB CONC 31.9 g/dl (32.0-37.0); MEAN CORPUSCULAR VOLUME 78.5 fl (82.0-101.0); MONOCYTE # 0.9 10^3/ul (0.3-0.9); MONOCYTES % 7.4 % (0.0-11.0); NEUTROPHIL # 10.4 10^3/ul (1.6-7.5); NEUTROPHILS % 80.9 % (39.0-77.0); PLATELET COUNT 372 10^3/UL (140-440); RED BLOOD COUNT 4.03 10^6/ul (4.70-6.10); RED CELL DISTRIBUTION WIDTH 20.8 % (11.5-14.5); UNCORRECTED WBC 12.8 10^3/ul (4.8-10.8); WHITE BLOOD COUNT 12.8 10^3/ul (4.8-10.8)
[2016-11-02 07:56] LABS: CONDITION 1; LH ANALYZER COMMENTS 1
[2016-11-02 08:00] VITALS: BP 132/73; PULSE 84; RESP 20
[2016-11-02] MEDS: DOCUSATE SODIUM 100 MG CAP PO SCH ×2 (08:10→20:57)
[2016-11-02] MEDS: MULTIVITAMINS THERAPEUTIC TAB PO SCH (08:11)
[2016-11-02] MEDS: MEGESTROL (40 MG/ML) 10ML CUP PO SCH (08:11)
[2016-11-02] MEDS: FAMOTIDINE 20 MG TAB PO SCH (08:12)
[2016-11-02] MEDS: QUETIAPINE 100 MG TAB PO SCH (08:12)
[2016-11-02] MEDS: METOPROLOL (XL) 50 MG TAB PO SCH (08:12)
[2016-11-02] MEDS: QUETIAPINE 25 MG TAB PO SCH (08:12)
[2016-11-02] MEDS: predniSONE 20 MG TAB PO SCH (08:13)
[2016-11-02] MEDS: AMLODIPINE 5 MG TAB PO SCH (08:13)
[2016-11-02] MEDS: HEPARIN 5,000 UNIT/0.5 ML SYG SC SCH ×2 (08:14→21:01)
[2016-11-02] MEDS: ALLOPURINOL 100 MG TAB PO SCH (08:15)
[2016-11-02 09:33] VITALS: BP 132/93; RESP 18
--- NOTE | 2016-11-02 09:44 | CONS ---
Date/Time of Note Date/Time of Note DATE: 11/02/16 TIME: 09:43 Consult Date/Type/Reason Admit Date/Time Oct 31, 2016 at 22:12 Initial Consult Date Subjective good uop. no new c/o. Objective Vital Signs Date Time Temp Pulse Resp B/P Pulse Ox O2 Delivery O2 Flow Rate FiO2 11/02/16 09:33 97.9 83 18 132/93 96 11/02/16 08:00 Room Air Intake and Output 11/01/16 11/01/16 11/02/16 15:00 23:00 07:00 Intake Total 310 ml 260 ml Output Total 601 ml 300 ml 350 ml Balance -291 ml -40 ml -350 ml HEENT: Head is normocephalic. NECK: Supple. HEART: Regular rate. LUNGS: Show diminished breath sounds at base. ABDOMEN: Soft, nontender to palpation. No rebound or guarding. EXTREMITIES: Negative for clubbing, cyanosis, edema. DERMATOLOGIC: No rashes. MUSCULOSKELETAL: Noted to have tophi and deformity of his toes. NEUROLOGIC: No focal deficits. Results/Medications Result Diagram: 11/02/16 0554 11/02/16 0554 Results 24 hrs Laboratory Tests Test 11/02/16 05:54 Anion Gap 20 H Basophils # 0.0 Basophils % 0.0 Blood Morphology Comment Blood Urea Nitrogen 58 H Calcium Level 9.7 Carbon Dioxide Level 24 Chloride Level 100 Creatinine 2.03 H Eosinophils # 0.1 Eosinophils % 0.6 Glucose Level 101 Hematocrit 31.6 L Hemoglobin 10.1 L INR International Normalized Ratio 1.03 Lymphocytes # 1.4 Lymphocytes % 11.1 L Magnesium Level 1.3 L Mean Corpuscular Hemoglobin 25.1 L Mean Corpuscular Hemoglobin Concent 31.9 L Mean Corpuscular Volume 78.5 L Mean Platelet Volume 9.0 Monocytes # 0.9 Monocytes % 7.4 Neutrophils # 10.4 H Neutrophils % 80.9 H Nucleated Red Blood Cells # 0.0 Nucleated Red Blood Cells % 0.0 Phosphorus Level 4.1 Platelet Count 372 Potassium Level 4.6 Prothrombin Time 13.5 Prothrombin Time Ratio 1.1 Red Blood Count 4.03 L Red Cell Distribution Width 20.8 H Sodium Level 139 Thyroid Stimulating Hormone (TSH) 0.762 White Blood Count 12.8 H Medications Current Medications Morphine Sulfate (morphine) 2 mg Q4H PRN IV PAIN Last administered on 05:32; Admin Dose 2 MG; Start 10/31/16 at 23:00 Multivitamins Therapeutic (Theragran) 1 tab DAILY PO Last administered on 08:11; Admin Dose 1 TAB; Start 11/01/16 at 09:00 Ondansetron HCl (Zofran Inj) 4 mg Q6H PRN IV NAUSEA AND/OR VOMITING; Start at 23:00 Phenol (Cepastat Lozenge) 1 lozenge Q1H PRN [place] SORE THROAT Last administered on 11/02/16 07:29; Admin Dose 1 LOZENGE; Start 10/31/16 at 23:00 Prednisone (Prednisone) 20 mg DAILY PO Last administered on 11/02/16 08:13; Admin Dose 20 MG; Start 11/01/16 at 09:00 Quetiapine Fumarate (Seroquel) 100 mg DAILY PO Last administered on 11/02/16 08:12; Admin Dose 100 MG; Start 11/01/16 at 09:00 Quetiapine Fumarate (Seroquel) 50 mg DAILY PO Last administered on 11/02/16 08 :12; Admin Dose 50 MG; Start 11/01/16 at 09:00 Trazodone HCl (Desyrel) 150 mg HS PO Last administered on 11/01/16 20:21; Admin Dose 150 MG; Start 10/31/16 at 23:00 Acetaminophen (Tylenol Tab) 650 mg Q6H PRN PO PAIN AND OR ELEVATED TEMP; Start 10/31/16 at 23:00 Amlodipine Besylate (Norvasc) 5 mg DAILY PO Last administered on 11/02/16 08: 13; Admin Dose 5 MG; Start 11/01/16 at 09:00 Atorvastatin Calcium (Lipitor) 10 mg DAILY@21 PO Last administered on 20:21; Admin Dose 10 MG; Start 10/31/16 at 23:00 Docusate Sodium (Colace) 100 mg Q12H PRN PO CONSTIPATION; Start 10/31/16 at 23: 00 Famotidine (Pepcid) 20 mg DAILY PO Last administered on 11/02/16 08:12; Admin Dose 20 MG; Start 11/01/16 at 09:00 Heparin Sodium (Porcine) (Heparin (5000 Units/0.5 ml)) 5,000 unit Q12 SC Last administered on 11/02/16 08:14; Admin Dose 5,000 UNIT; Start 10/31/16 at 23:00 Acetaminophen/ Hydrocodone Bitart ([place] (5/325)) 1 tab Q6H PRN PO PAIN Last administered on 11/01/16 08:53; Admin Dose 1 TAB; Start 10/31/16 at 23:00 Megestrol Acetate (Megace Susp) 800 mg DAILY PO Last administered on 11/02/16 08:11; Admin Dose 800 MG; Start 11/01/16 at 09:00 Metoprolol Succinate (Toprol Xl) 50 mg DAILY PO Last administered on 11/02/16 08:12; Admin Dose 50 MG; Start 11/01/16 at 09:00 Docusate Sodium (Colace) 100 mg BID PO Last administered on 11/01/16 08:42; Admin Dose 100 MG; Start 11/01/16 at 09:00 Senna (Senokot) 1 tab HS PO ; Start 11/01/16 at 21:00 Bisacodyl (Dulcolax Supp) 10 mg DAILY PRN [place] CONSTIPATION; Start 11/01/16 at 06 :30 Lactulose (Enulose) 20 gm DAILY PRN PO CONSTIPATION; Start 11/01/16 at 06:30 Acetaminophen/ Hydrocodone Bitart ([place] (5/325)) 2 tab Q4H PRN PO severe pain Last administered on 11/02/16 07:29; Admin Dose 2 TAB; Start 11/01/16 at 11:30 Allopurinol (Zyloprim) 50 mg DAILY PO Last administered on 11/02/16 08:15; Admin Dose 50 MG; Start 11/02/16 at 09:00 Guaifenesin/ Dextromethorphan (Robitussin Dm Liquid Cup) 10 ml Q4H PRN PO COUGH ; Start 11/01/16 at 16:30 Zolpidem Tartrate (Ambien) 10 mg HS PRN PO INSOMNIA Last administered on 21:57; Admin Dose 10 MG; Start 11/01/16 at 22:00 Assessment/Plan Chief Complaint/Hosp Course 1. Nonoliguric acute kidney injury on top of chronic kidney disease with unknown baseline creatinine. Etiology of acute kidney injury is secondary to acute tubular necrosis. Renal function is improving. Continue supportive care , renally dose all meds, avoid nephrotoxins. 2. Hypomagnesemia, improved. Continue to monitor and replete. 3. Anemia. Continue to monitor hemoglobin and hematocrit levels. 4. Mineral bone disorder. Continue to monitor calcium and phosphorus levels. 5. Acute gouty flare. The patient is on prednisone. We will continue. The patient is unable to tolerate NSAIDs due to acute kidney injury. 6. Bronchitis, improving. Continue medical management. 7. Hypertension. Continue current blood pressure regimen. 8. Depression. Continue SSRI. 9. Insomnia. Continue Ambien as needed. Problems: NAZARIO MELISSA MD Nov 02, 2016 09:44
--- NOTE | 2016-11-02 10:22 | CONS ---
Date/Time of Note Date/Time of Note DATE: 11/02/16 TIME: 10:21 Consult Date/Type/Reason Admit Date/Time Oct 31, 2016 at 22:12 Initial Consult Date Subjective Currently comfortable Objective pulm- cta Vital Signs Date Time Temp Pulse Resp B/P Pulse Ox O2 Delivery O2 Flow Rate FiO2 11/02/16 09:33 97.9 83 18 132/93 96 11/02/16 08:00 Room Air Intake and Output 11/01/16 11/01/16 11/02/16 15:00 23:00 07:00 Intake Total 310 ml 260 ml Output Total 601 ml 300 ml 350 ml Balance -291 ml -40 ml -350 ml Results/Medications Result Diagram: 11/02/16 0554 11/02/16 0554 Results 24 hrs Laboratory Tests Test 11/02/16 05:54 Anion Gap 20 H Basophils # 0.0 Basophils % 0.0 Blood Morphology Comment Blood Urea Nitrogen 58 H Calcium Level 9.7 Carbon Dioxide Level 24 Chloride Level 100 Creatinine 2.03 H Eosinophils # 0.1 Eosinophils % 0.6 Glucose Level 101 Hematocrit 31.6 L Hemoglobin 10.1 L INR International Normalized Ratio 1.03 Lymphocytes # 1.4 Lymphocytes % 11.1 L Magnesium Level 1.3 L Mean Corpuscular Hemoglobin 25.1 L Mean Corpuscular Hemoglobin Concent 31.9 L Mean Corpuscular Volume 78.5 L Mean Platelet Volume 9.0 Monocytes # 0.9 Monocytes % 7.4 Neutrophils # 10.4 H Neutrophils % 80.9 H Nucleated Red Blood Cells # 0.0 Nucleated Red Blood Cells % 0.0 Phosphorus Level 4.1 Platelet Count 372 Potassium Level 4.6 Prothrombin Time 13.5 Prothrombin Time Ratio 1.1 Red Blood Count 4.03 L Red Cell Distribution Width 20.8 H Sodium Level 139 Thyroid Stimulating Hormone (TSH) 0.762 White Blood Count 12.8 H Medications Current Medications Morphine Sulfate (morphine) 2 mg Q4H PRN IV PAIN Last administered on 05:32; Admin Dose 2 MG; Start 10/31/16 at 23:00 Multivitamins Therapeutic (Theragran) 1 tab DAILY PO Last administered on 08:11; Admin Dose 1 TAB; Start 11/01/16 at 09:00 Ondansetron HCl (Zofran Inj) 4 mg Q6H PRN IV NAUSEA AND/OR VOMITING; Start at 23:00 Phenol (Cepastat Lozenge) 1 lozenge Q1H PRN [place] SORE THROAT Last administered on 11/02/16 07:29; Admin Dose 1 LOZENGE; Start 10/31/16 at 23:00 Prednisone (Prednisone) 20 mg DAILY PO Last administered on 11/02/16 08:13; Admin Dose 20 MG; Start 11/01/16 at 09:00 Quetiapine Fumarate (Seroquel) 100 mg DAILY PO Last administered on 11/02/16 08:12; Admin Dose 100 MG; Start 11/01/16 at 09:00 Quetiapine Fumarate (Seroquel) 50 mg DAILY PO Last administered on 11/02/16 08 :12; Admin Dose 50 MG; Start 11/01/16 at 09:00 Trazodone HCl (Desyrel) 150 mg HS PO Last administered on 11/01/16 20:21; Admin Dose 150 MG; Start 10/31/16 at 23:00 Acetaminophen (Tylenol Tab) 650 mg Q6H PRN PO PAIN AND OR ELEVATED TEMP; Start 10/31/16 at 23:00 Amlodipine Besylate (Norvasc) 5 mg DAILY PO Last administered on 11/02/16 08: 13; Admin Dose 5 MG; Start 11/01/16 at 09:00 Atorvastatin Calcium (Lipitor) 10 mg DAILY@21 PO Last administered on 20:21; Admin Dose 10 MG; Start 10/31/16 at 23:00 Docusate Sodium (Colace) 100 mg Q12H PRN PO CONSTIPATION; Start 10/31/16 at 23: 00 Famotidine (Pepcid) 20 mg DAILY PO Last administered on 11/02/16 08:12; Admin Dose 20 MG; Start 11/01/16 at 09:00 Heparin Sodium (Porcine) (Heparin (5000 Units/0.5 ml)) 5,000 unit Q12 SC Last administered on 11/02/16 08:14; Admin Dose 5,000 UNIT; Start 10/31/16 at 23:00 Acetaminophen/ Hydrocodone Bitart ([place] (5/325)) 1 tab Q6H PRN PO PAIN Last administered on 11/01/16 08:53; Admin Dose 1 TAB; Start 10/31/16 at 23:00 Megestrol Acetate (Megace Susp) 800 mg DAILY PO Last administered on 11/02/16 08:11; Admin Dose 800 MG; Start 11/01/16 at 09:00 Metoprolol Succinate (Toprol Xl) 50 mg DAILY PO Last administered on 11/02/16 08:12; Admin Dose 50 MG; Start 11/01/16 at 09:00 Docusate Sodium (Colace) 100 mg BID PO Last administered on 11/01/16 08:42; Admin Dose 100 MG; Start 11/01/16 at 09:00 Senna (Senokot) 1 tab HS PO ; Start 11/01/16 at 21:00 Bisacodyl (Dulcolax Supp) 10 mg DAILY PRN [place] CONSTIPATION; Start 11/01/16 at 06 :30 Lactulose (Enulose) 20 gm DAILY PRN PO CONSTIPATION; Start 11/01/16 at 06:30 Acetaminophen/ Hydrocodone Bitart ([place] (5/325)) 2 tab Q4H PRN PO severe pain Last administered on 11/02/16 07:29; Admin Dose 2 TAB; Start 11/01/16 at 11:30 Allopurinol (Zyloprim) 50 mg DAILY PO Last administered on 11/02/16 08:15; Admin Dose 50 MG; Start 11/02/16 at 09:00 Guaifenesin/ Dextromethorphan (Robitussin Dm Liquid Cup) 10 ml Q4H PRN PO COUGH ; Start 11/01/16 at 16:30 Zolpidem Tartrate (Ambien) 10 mg HS PRN PO INSOMNIA Last administered on 21:57; Admin Dose 10 MG; Start 11/01/16 at 22:00 Assessment/Plan Additional Assessment/Plan Rehab- Gouty arthritis flare affecting multiple joints including bilateral elbows, wrists, knees and feet. Increase activities as tolerated Bronchitis. Acute on chronic kidney disease. Hypertension. Dyslipidemia. Depression. Orthostatic hypotension- abd binder for REFUGIO Cortez MD Nov 02, 2016 10:22
[2016-11-02] MEDS ORDERED: MAGNESIUM SULFATE 1 GM/D5W 100 ML IVPB ONE (17:00)
--- NOTE | 2016-11-02 18:32 | CONS ---
Date/Time of Note Date/Time of Note DATE: 11/02/16 TIME: 18:27 Consult Date/Type/Reason Admit Date/Time Oct 31, 2016 at 22:12 Initial Consult Date Oct 31, 2016 Reason for Consultation Gout Subjective This morning started on 50 mg allopurinol daily. No new complaints. Has still some pain in the right foot but able to ambulate and decreased narcotics to [facility]. Objective Vital Signs Date Time Temp Pulse Resp B/P Pulse Ox O2 Delivery O2 Flow Rate FiO2 11/02/16 09:33 97.9 83 18 132/93 96 11/02/16 08:00 Room Air Intake and Output 11/01/16 11/01/16 11/02/16 15:00 23:00 07:00 Intake Total 310 ml 260 ml Output Total 601 ml 300 ml 350 ml Balance -291 ml -40 ml -350 ml Results/Medications Result Diagram: 11/02/16 0554 11/02/16 0554 Results 24 hrs Laboratory Tests Test 11/02/16 05:54 Anion Gap 20 H Basophils # 0.0 Basophils % 0.0 Blood Morphology Comment Blood Urea Nitrogen 58 H Calcium Level 9.7 Carbon Dioxide Level 24 Chloride Level 100 Creatinine 2.03 H Eosinophils # 0.1 Eosinophils % 0.6 Glucose Level 101 Hematocrit 31.6 L Hemoglobin 10.1 L INR International Normalized Ratio 1.03 Lymphocytes # 1.4 Lymphocytes % 11.1 L Magnesium Level 1.3 L Mean Corpuscular Hemoglobin 25.1 L Mean Corpuscular Hemoglobin Concent 31.9 L Mean Corpuscular Volume 78.5 L Mean Platelet Volume 9.0 Monocytes # 0.9 Monocytes % 7.4 Neutrophils # 10.4 H Neutrophils % 80.9 H Nucleated Red Blood Cells # 0.0 Nucleated Red Blood Cells % 0.0 Phosphorus Level 4.1 Platelet Count 372 Potassium Level 4.6 Prothrombin Time 13.5 Prothrombin Time Ratio 1.1 Red Blood Count 4.03 L Red Cell Distribution Width 20.8 H Sodium Level 139 Thyroid Stimulating Hormone (TSH) 0.762 White Blood Count 12.8 H Medications Current Medications Morphine Sulfate (morphine) 2 mg Q4H PRN IV PAIN Last administered on 05:32; Admin Dose 2 MG; Start 10/31/16 at 23:00 Multivitamins Therapeutic (Theragran) 1 tab DAILY PO Last administered on 08:11; Admin Dose 1 TAB; Start 11/01/16 at 09:00 Ondansetron HCl (Zofran Inj) 4 mg Q6H PRN IV NAUSEA AND/OR VOMITING; Start at 23:00 Phenol (Cepastat Lozenge) 1 lozenge Q1H PRN [place] SORE THROAT Last administered on 11/02/16 07:29; Admin Dose 1 LOZENGE; Start 10/31/16 at 23:00 Prednisone (Prednisone) 20 mg DAILY PO Last administered on 11/02/16 08:13; Admin Dose 20 MG; Start 11/01/16 at 09:00 Quetiapine Fumarate (Seroquel) 100 mg DAILY PO Last administered on 11/02/16 08:12; Admin Dose 100 MG; Start 11/01/16 at 09:00 Quetiapine Fumarate (Seroquel) 50 mg DAILY PO Last administered on 11/02/16 08 :12; Admin Dose 50 MG; Start 11/01/16 at 09:00 Trazodone HCl (Desyrel) 150 mg HS PO Last administered on 11/01/16 20:21; Admin Dose 150 MG; Start 10/31/16 at 23:00 Acetaminophen (Tylenol Tab) 650 mg Q6H PRN PO PAIN AND OR ELEVATED TEMP; Start 10/31/16 at 23:00 Amlodipine Besylate (Norvasc) 5 mg DAILY PO Last administered on 11/02/16 08: 13; Admin Dose 5 MG; Start 11/01/16 at 09:00 Atorvastatin Calcium (Lipitor) 10 mg DAILY@21 PO Last administered on 20:21; Admin Dose 10 MG; Start 10/31/16 at 23:00 Docusate Sodium (Colace) 100 mg Q12H PRN PO CONSTIPATION; Start 10/31/16 at 23: 00 Famotidine (Pepcid) 20 mg DAILY PO Last administered on 11/02/16 08:12; Admin Dose 20 MG; Start 11/01/16 at 09:00 Heparin Sodium (Porcine) (Heparin (5000 Units/0.5 ml)) 5,000 unit Q12 SC Last administered on 11/02/16 08:14; Admin Dose 5,000 UNIT; Start 10/31/16 at 23:00 Acetaminophen/ Hydrocodone Bitart ([place] (5/325)) 1 tab Q6H PRN PO PAIN Last administered on 11/01/16 08:53; Admin Dose 1 TAB; Start 10/31/16 at 23:00 Megestrol Acetate (Megace Susp) 800 mg DAILY PO Last administered on 11/02/16 08:11; Admin Dose 800 MG; Start 11/01/16 at 09:00 Metoprolol Succinate (Toprol Xl) 50 mg DAILY PO Last administered on 11/02/16 08:12; Admin Dose 50 MG; Start 11/01/16 at 09:00 Docusate Sodium (Colace) 100 mg BID PO Last administered on 11/01/16 08:42; Admin Dose 100 MG; Start 11/01/16 at 09:00 Senna (Senokot) 1 tab HS PO ; Start 11/01/16 at 21:00 Bisacodyl (Dulcolax Supp) 10 mg DAILY PRN [place] CONSTIPATION; Start 11/01/16 at 06 :30 Lactulose (Enulose) 20 gm DAILY PRN PO CONSTIPATION; Start 11/01/16 at 06:30 Acetaminophen/ Hydrocodone Bitart ([place] (5/325)) 2 tab Q4H PRN PO severe pain Last administered on 11/02/16 18:11; Admin Dose 2 TAB; Start 11/01/16 at 11:30 Allopurinol (Zyloprim) 50 mg DAILY PO Last administered on 11/02/16 08:15; Admin Dose 50 MG; Start 11/02/16 at 09:00 Guaifenesin/ Dextromethorphan (Robitussin Dm Liquid Cup) 10 ml Q4H PRN PO COUGH ; Start 11/01/16 at 16:30 Zolpidem Tartrate (Ambien) 10 mg HS PRN PO INSOMNIA Last administered on 21:57; Admin Dose 10 MG; Start 11/01/16 at 22:00 Assessment/Plan Chief Complaint/Hosp Course 1 Acute gout, tophacious with hyperuricemia and recent arthritis in a typical joint 2. Renal insufficiency somewhat improved 3 anemia 4 depression Plan 1 The acute episode has markedly improved, Continue on small dose of allopurinol at 50 mg daily. 2 decrease prednisone to 15 mg daily at this point Problems: LENY LOPEZ MD Nov 02, 2016 18:32
[2016-11-02] MEDS: ATORVASTATIN 10 MG TAB PO SCH (20:57)
[2016-11-02] MEDS: SENNA TAB PO SCH (20:57)
[2016-11-02] MEDS: traZODone 50 MG TAB PO SCH (20:57)
[2016-11-02 20:59] VITALS: BP 129/78; RESP 18
[2016-11-02] MEDS: ZOLPIDEM 5 MG TAB PO PRN (21:03)
[2016-11-03] MEDS: HYDROCODONE/APAP (5/325) TAB PO PRN ×4 (00:21→23:48)
[2016-11-03] MEDS: morphine 2 MG INJ IV PRN ×3 (03:28→21:05)
[2016-11-03] MEDS: CEPASTAT LOZENGE MT PRN ×3 (03:28→10:42)
[2016-11-03 07:30] VITALS: BP 135/81; RESP 18
[2016-11-03 07:40] VITALS: BP 135/81; PULSE 88; RESP 18
[2016-11-03 08:00] VITALS: BP 137/67; PULSE 92; RESP 18
[2016-11-03] MEDS: DOCUSATE SODIUM 100 MG CAP PO SCH ×2 (09:00→21:00)
[2016-11-03] MEDS: ALLOPURINOL 100 MG TAB PO SCH (09:03)
[2016-11-03] MEDS: MULTIVITAMINS THERAPEUTIC TAB PO SCH (09:03)
[2016-11-03] MEDS: QUETIAPINE 25 MG TAB PO SCH (09:04)
[2016-11-03] MEDS: QUETIAPINE 100 MG TAB PO SCH (09:04)
[2016-11-03] MEDS: AMLODIPINE 5 MG TAB PO SCH (09:04)
[2016-11-03] MEDS: METOPROLOL (XL) 50 MG TAB PO SCH (09:04)
[2016-11-03] MEDS: FAMOTIDINE 20 MG TAB PO SCH (09:04)
[2016-11-03] MEDS: MEGESTROL (40 MG/ML) 10ML CUP PO SCH (09:05)
[2016-11-03] MEDS: HEPARIN 5,000 UNIT/0.5 ML SYG SC SCH ×2 (09:06→20:59)
[2016-11-03] MEDS: predniSONE 5 MG TAB PO SCH (09:07)
--- NOTE | 2016-11-03 10:06 | CONS ---
Date/Time of Note Date/Time of Note DATE: 11/03/16 TIME: 10:05 Consult Date/Type/Reason Admit Date/Time Oct 31, 2016 at 22:12 Type of Consultation: nephro Subjective feels better no new c/o d/w rn, good uop. Objective Vital Signs Date Time Temp Pulse Resp B/P Pulse Ox O2 Delivery O2 Flow Rate FiO2 11/03/16 08:00 92 18 137/67 97 Room Air 11/03/16 07:40 98.1 Intake and Output 11/02/16 11/02/16 11/03/16 15:00 23:00 07:00 Intake Total 960 ml 1010 ml 360 ml Output Total 1150 ml 850 ml 1950 ml Balance -190 ml 160 ml -1590 ml HEENT: Head is normocephalic. NECK: Supple. HEART: Regular rate. LUNGS: Show diminished breath sounds at base. ABDOMEN: Soft, nontender to palpation. No rebound or guarding. EXTREMITIES: Negative for clubbing, cyanosis, edema. DERMATOLOGIC: No rashes. MUSCULOSKELETAL: Noted to have tophi and deformity of his toes. NEUROLOGIC: No focal deficits. Results/Medications Result Diagram: 11/02/1654 11/02/16 0554 Medications Current Medications Morphine Sulfate (morphine) 2 mg Q4H PRN IV PAIN Last administered on 09:17; Admin Dose 2 MG; Start 10/31/16 at 23:00 Multivitamins Therapeutic (Theragran) 1 tab DAILY PO Last administered on 09:03; Admin Dose 1 TAB; Start 11/01/16 at 09:00 Ondansetron HCl (Zofran Inj) 4 mg Q6H PRN IV NAUSEA AND/OR VOMITING; Start at 23:00 Phenol (Cepastat Lozenge) 1 lozenge Q1H PRN [place] SORE THROAT Last administered on 11/03/16 06:33; Admin Dose 1 LOZENGE; Start 10/31/16 at 23:00 Quetiapine Fumarate (Seroquel) 100 mg DAILY PO Last administered on 11/03/16 09:04; Admin Dose 100 MG; Start 11/01/16 at 09:00 Quetiapine Fumarate (Seroquel) 50 mg DAILY PO Last administered on 11/03/16 09 :04; Admin Dose 50 MG; Start 11/01/16 at 09:00 Trazodone HCl (Desyrel) 150 mg HS PO Last administered on 11/02/16 20:57; Admin Dose 150 MG; Start 10/31/16 at 23:00 Acetaminophen (Tylenol Tab) 650 mg Q6H PRN PO PAIN AND OR ELEVATED TEMP; Start 10/31/16 at 23:00 Amlodipine Besylate (Norvasc) 5 mg DAILY PO Last administered on 11/03/16 09: 04; Admin Dose 5 MG; Start 11/01/16 at 09:00 Atorvastatin Calcium (Lipitor) 10 mg DAILY@21 PO Last administered on 20:57; Admin Dose 10 MG; Start 10/31/16 at 23:00 Docusate Sodium (Colace) 100 mg Q12H PRN PO CONSTIPATION; Start 10/31/16 at 23: 00 Famotidine (Pepcid) 20 mg DAILY PO Last administered on 11/03/16 09:04; Admin Dose 20 MG; Start 11/01/16 at 09:00 Heparin Sodium (Porcine) (Heparin (5000 Units/0.5 ml)) 5,000 unit Q12 SC Last administered on 11/03/16 09:06; Admin Dose 5,000 UNIT; Start 10/31/16 at 23:00 Acetaminophen/ Hydrocodone Bitart ([place] (5/325)) 1 tab Q6H PRN PO PAIN Last administered on 11/01/16 08:53; Admin Dose 1 TAB; Start 10/31/16 at 23:00 Megestrol Acetate (Megace Susp) 800 mg DAILY PO Last administered on 11/03/16 09:05; Admin Dose 800 MG; Start 11/01/16 at 09:00 Metoprolol Succinate (Toprol Xl) 50 mg DAILY PO Last administered on 11/03/16 09:04; Admin Dose 50 MG; Start 11/01/16 at 09:00 Docusate Sodium (Colace) 100 mg BID PO Last administered on 11/02/16 20:57; Admin Dose 100 MG; Start 11/01/16 at 09:00 Senna (Senokot) 1 tab HS PO Last administered on 11/02/16 20:57; Admin Dose 1 TAB; Start 11/01/16 at 21:00 Bisacodyl (Dulcolax Supp) 10 mg DAILY PRN [place] CONSTIPATION; Start 11/01/16 at 06 :30 Lactulose (Enulose) 20 gm DAILY PRN PO CONSTIPATION; Start 11/01/16 at 06:30 Acetaminophen/ Hydrocodone Bitart ([place] (5/325)) 2 tab Q4H PRN PO severe pain Last administered on 11/03/16 06:33; Admin Dose 2 TAB; Start 11/01/16 at 11:30 Allopurinol (Zyloprim) 50 mg DAILY PO Last administered on 11/03/16 09:03; Admin Dose 50 MG; Start 11/02/16 at 09:00 Guaifenesin/ Dextromethorphan (Robitussin Dm Liquid Cup) 10 ml Q4H PRN PO COUGH ; Start 11/01/16 at 16:30 Zolpidem Tartrate (Ambien) 10 mg HS PRN PO INSOMNIA Last administered on 21:03; Admin Dose 10 MG; Start 11/01/16 at 22:00 Prednisone (Prednisone) 15 mg DAILY PO Last administered on 11/03/16 09:07; Admin Dose 15 MG; Start 11/03/16 at 09:00 Assessment/Plan Chief Complaint/Hosp Course 1. Nonoliguric acute kidney injury on top of chronic kidney disease with unknown baseline creatinine. Etiology of acute kidney injury is secondary to acute tubular necrosis. Renal function is improving. Continue supportive care , renally dose all meds, avoid nephrotoxins. 2. Hypomagnesemia, improved. Continue to monitor and replete. 3. Anemia. Continue to monitor hemoglobin and hematocrit levels. 4. Mineral bone disorder. Continue to monitor calcium and phosphorus levels. 5. Acute gouty flare. The patient is on prednisone. We will continue. The patient is unable to tolerate NSAIDs due to acute kidney injury. 6. Bronchitis, improving. Continue medical management. 7. Hypertension. Continue current blood pressure regimen. 8. Depression. Continue SSRI. 9. Insomnia. Continue Ambien as needed. Problems: NAZARIO MELISSA MD Nov 03, 2016 10:06
[2016-11-03 20:00] VITALS: BP 132/71; RESP 21
[2016-11-03] MEDS: traZODone 50 MG TAB PO SCH (20:55)
[2016-11-03] MEDS: ATORVASTATIN 10 MG TAB PO SCH (20:55)
[2016-11-03] MEDS: SENNA TAB PO SCH (21:00)
[2016-11-03] MEDS: ZOLPIDEM 5 MG TAB PO PRN (21:00)
[2016-11-04] MEDS: CEPASTAT LOZENGE MT PRN (05:09)
[2016-11-04] MEDS: morphine 2 MG INJ IV PRN ×3 (05:15→20:56)
[2016-11-04 07:30] VITALS: BP 130/69; RESP 18
[2016-11-04] MEDS: MEGESTROL (40 MG/ML) 10ML CUP PO SCH (08:56)
[2016-11-04] MEDS: QUETIAPINE 25 MG TAB PO SCH (08:58)
[2016-11-04] MEDS: MULTIVITAMINS THERAPEUTIC TAB PO SCH (08:58)
[2016-11-04] MEDS: ALLOPURINOL 100 MG TAB PO SCH (08:59)
[2016-11-04] MEDS: DOCUSATE SODIUM 100 MG CAP PO SCH ×2 (08:59→20:50)
[2016-11-04] MEDS: predniSONE 5 MG TAB PO SCH (08:59)
[2016-11-04] MEDS: QUETIAPINE 100 MG TAB PO SCH (09:00)
[2016-11-04] MEDS: FAMOTIDINE 20 MG TAB PO SCH (09:00)
[2016-11-04] MEDS: METOPROLOL (XL) 50 MG TAB PO SCH (09:00)
[2016-11-04] MEDS: AMLODIPINE 5 MG TAB PO SCH (09:00)
[2016-11-04] MEDS: HYDROCODONE/APAP (5/325) TAB PO PRN ×2 (09:01→18:57)
[2016-11-04] MEDS: HEPARIN 5,000 UNIT/0.5 ML SYG SC SCH ×2 (09:05→20:52)
--- NOTE | 2016-11-04 10:05 | PN ---
DATE: 11/04/2016 SUBJECTIVE: The patient is stable, no acute events overnight. No fevers, chills, nausea or vomitin g. No shortness of breath. OBJECTIVE: VITAL SIGNS: Blood pressure is 132/71, respirations 21, pulse 84, temperature 98.3. HEENT: Head is normocephalic. NECK: Supple. HEART: Regular rate. LUNGS: Show diminished breath sounds at the base. ABDOMEN: Soft, nontender to palpation. No rebound or guarding. EXTREMITIES: Negative for clubbing, cyanosis. No edema. DERMATOLOGIC: No rashes. MUSCULOSKELETAL: Noted deformities on toes. NEUROLOGIC: No focal deficits. MEDICATIONS: Patient's medication has been reviewed. LABORATORY DATA: Laboratory data has been reviewed. No new labs. ASSESSMENT AND PLAN: 1. Nonoliguric acute kidney injury on top of chronic kidney disease with unknown baseline creatinin e. Etiology of acute kidney injury is secondary to acute tubular necrosis. Renal function appears to have improved. Continue supportive care, renally dose all meds, avoid nephrotoxins. We will rep eat a renal panel in the morning. 2. Anemia. Continue to monitor hemoglobin and hematocrit levels. 3. Mineral bone disorder. Continue to monitor calcium and phosphorus levels. 4. Acute gouty flare. The patient is on prednisone, continue, unable to tolerate NSAIDS due to acu te kidney injury. 5. Bronchitis, improved. Continue medical management. 6. Hypertension. Continue current blood pressure regimen. 7. Depression. Continue SSRI. 8. Insomnia. Continue Ambien. Dictated By: HERO LI/FARRAH Conf#: [id number] DID#: [id number]
--- NOTE | 2016-11-04 12:16 | CONS ---
Date/Time of Note Date/Time of Note DATE: 11/04/16 TIME: 12:13 Consult Date/Type/Reason Admit Date/Time Oct 31, 2016 at 22:12 Type of Consultation: nephro Subjective therapist report patient motivated for activities Objective Vital Signs Date Time Temp Pulse Resp B/P Pulse Ox O2 Delivery O2 Flow Rate FiO2 11/03/16 20:00 98.3 84 21 132/71 99 11/03/16 08:00 Room Air Intake and Output 11/03/16 11/03/16 11/04/16 15:00 23:00 07:00 Intake Total 850 ml 820 ml 1200 ml Output Total 780 ml 1060 ml 1600 ml Balance 70 ml -240 ml -400 ml INTERDISCIPLINARY TEAM CONFERENCE BOWEL- Cont BLADDER-Cont SKIN- intact OT- DRESSING-min BATHING-min TOILETING-min PT- BED MOBILITY-cga TRANSFERS-cga AMBULATION-cga 200 feet A/P- Interdisciplinary team conference held today. Please see interdisciplinary sheet. Working toward d.c. on 11/08 with post discharge follow up of physical therapy, occupational therapy. Gouty arthritis flare with seronegative arthropathy affecting multiple joints- overall excellent progress CKD- follow renal status HTn Orthostatic- improving Results/Medications Result Diagram: 11/02/16 0554 11/02/16 0554 Medications Current Medications Morphine Sulfate (morphine) 2 mg Q4H PRN IV PAIN Last administered on 05:15; Admin Dose 2 MG; Start 10/31/16 at 23:00 Multivitamins Therapeutic (Theragran) 1 tab DAILY PO Last administered on 08:58; Admin Dose 1 TAB; Start 11/01/16 at 09:00 Ondansetron HCl (Zofran Inj) 4 mg Q6H PRN IV NAUSEA AND/OR VOMITING; Start at 23:00 Phenol (Cepastat Lozenge) 1 lozenge Q1H PRN [place] SORE THROAT Last administered on 11/04/16 05:09; Admin Dose 1 LOZENGE; Start 10/31/16 at 23:00 Quetiapine Fumarate (Seroquel) 100 mg DAILY PO Last administered on 11/04/16 09:00; Admin Dose 100 MG; Start 11/01/16 at 09:00 Quetiapine Fumarate (Seroquel) 50 mg DAILY PO Last administered on 11/04/16 08 :58; Admin Dose 50 MG; Start 11/01/16 at 09:00 Trazodone HCl (Desyrel) 150 mg HS PO Last administered on 11/03/16 20:55; Admin Dose 150 MG; Start 10/31/16 at 23:00 Acetaminophen (Tylenol Tab) 650 mg Q6H PRN PO PAIN AND OR ELEVATED TEMP; Start 10/31/16 at 23:00 Amlodipine Besylate (Norvasc) 5 mg DAILY PO Last administered on 11/04/16 09: 00; Admin Dose 5 MG; Start 11/01/16 at 09:00 Atorvastatin Calcium (Lipitor) 10 mg DAILY@21 PO Last administered on 20:55; Admin Dose 10 MG; Start 10/31/16 at 23:00 Docusate Sodium (Colace) 100 mg Q12H PRN PO CONSTIPATION; Start 10/31/16 at 23: 00 Famotidine (Pepcid) 20 mg DAILY PO Last administered on 11/04/16 09:00; Admin Dose 20 MG; Start 11/01/16 at 09:00 Heparin Sodium (Porcine) (Heparin (5000 Units/0.5 ml)) 5,000 unit Q12 SC Last administered on 11/04/16 09:05; Admin Dose 5,000 UNIT; Start 10/31/16 at 23:00 Acetaminophen/ Hydrocodone Bitart ([place] (5/325)) 1 tab Q6H PRN PO PAIN Last administered on 11/01/16 08:53; Admin Dose 1 TAB; Start 10/31/16 at 23:00 Megestrol Acetate (Megace Susp) 800 mg DAILY PO Last administered on 11/04/16 08:56; Admin Dose 800 MG; Start 11/01/16 at 09:00 Metoprolol Succinate (Toprol Xl) 50 mg DAILY PO Last administered on 11/04/16 09:00; Admin Dose 50 MG; Start 11/01/16 at 09:00 Docusate Sodium (Colace) 100 mg BID PO Last administered on 11/04/16 08:59; Admin Dose 100 MG; Start 11/01/16 at 09:00 Senna (Senokot) 1 tab HS PO Last administered on 11/02/16 20:57; Admin Dose 1 TAB; Start 11/01/16 at 21:00 Bisacodyl (Dulcolax Supp) 10 mg DAILY PRN [place] CONSTIPATION; Start 11/01/16 at 06 :30 Lactulose (Enulose) 20 gm DAILY PRN PO CONSTIPATION; Start 11/01/16 at 06:30 Acetaminophen/ Hydrocodone Bitart ([place] (5/325)) 2 tab Q4H PRN PO severe pain Last administered on 11/04/16 09:01; Admin Dose 2 TAB; Start 11/01/16 at 11:30 Allopurinol (Zyloprim) 50 mg DAILY PO Last administered on 11/04/16 08:59; Admin Dose 50 MG; Start 11/02/16 at 09:00 Guaifenesin/ Dextromethorphan (Robitussin Dm Liquid Cup) 10 ml Q4H PRN PO COUGH ; Start 11/01/16 at 16:30 Zolpidem Tartrate (Ambien) 10 mg HS PRN PO INSOMNIA Last administered on 21:00; Admin Dose 10 MG; Start 11/01/16 at 22:00 Prednisone (Prednisone) 15 mg DAILY PO Last administered on 11/04/16 08:59; Admin Dose 15 MG; Start 11/03/16 at 09:00 REFUGIO JUDGE MD Nov 04, 2016 12:16
--- NOTE | 2016-11-04 13:13 | CONS ---
Date/Time of Note Date/Time of Note DATE: 11/04/16 TIME: 13:05 Consult Date/Type/Reason Admit Date/Time Oct 31, 2016 at 22:12 Initial Consult Date Oct 31, 2016 Type of Consultation: Rheum. Reason for Consultation Gout Objective No acute distress alert oriented 3 Chest clear to auscultation Heart regular rhythm next Abdomen soft without tenderness Musculoskeletal exam without change Vital Signs Date Time Temp Pulse Resp B/P Pulse Ox O2 Delivery O2 Flow Rate FiO2 11/04/16 07:30 98.7 89 18 130/69 97 11/03/16 08:00 Room Air Intake and Output 11/03/16 11/03/16 11/04/16 15:00 23:00 07:00 Intake Total 850 ml 820 ml 1200 ml Output Total 780 ml 1060 ml 1600 ml Balance 70 ml -240 ml -400 ml Results/Medications Result Diagram: 11/02/16 0554 11/02/16 0554 Medications Current Medications Morphine Sulfate (morphine) 2 mg Q4H PRN IV PAIN Last administered on 05:15; Admin Dose 2 MG; Start 10/31/16 at 23:00 Multivitamins Therapeutic (Theragran) 1 tab DAILY PO Last administered on 08:58; Admin Dose 1 TAB; Start 11/01/16 at 09:00 Ondansetron HCl (Zofran Inj) 4 mg Q6H PRN IV NAUSEA AND/OR VOMITING; Start at 23:00 Phenol (Cepastat Lozenge) 1 lozenge Q1H PRN [place] SORE THROAT Last administered on 11/04/16 05:09; Admin Dose 1 LOZENGE; Start 10/31/16 at 23:00 Quetiapine Fumarate (Seroquel) 100 mg DAILY PO Last administered on 11/04/16 09:00; Admin Dose 100 MG; Start 11/01/16 at 09:00 Quetiapine Fumarate (Seroquel) 50 mg DAILY PO Last administered on 11/04/16 08 :58; Admin Dose 50 MG; Start 11/01/16 at 09:00 Trazodone HCl (Desyrel) 150 mg HS PO Last administered on 11/03/16 20:55; Admin Dose 150 MG; Start 10/31/16 at 23:00 Acetaminophen (Tylenol Tab) 650 mg Q6H PRN PO PAIN AND OR ELEVATED TEMP; Start 10/31/16 at 23:00 Amlodipine Besylate (Norvasc) 5 mg DAILY PO Last administered on 11/04/16 09: 00; Admin Dose 5 MG; Start 11/01/16 at 09:00 Atorvastatin Calcium (Lipitor) 10 mg DAILY@21 PO Last administered on 20:55; Admin Dose 10 MG; Start 10/31/16 at 23:00 Docusate Sodium (Colace) 100 mg Q12H PRN PO CONSTIPATION; Start 10/31/16 at 23: 00 Famotidine (Pepcid) 20 mg DAILY PO Last administered on 11/04/16 09:00; Admin Dose 20 MG; Start 11/01/16 at 09:00 Heparin Sodium (Porcine) (Heparin (5000 Units/0.5 ml)) 5,000 unit Q12 SC Last administered on 11/04/16 09:05; Admin Dose 5,000 UNIT; Start 10/31/16 at 23:00 Acetaminophen/ Hydrocodone Bitart ([place] (5/325)) 1 tab Q6H PRN PO PAIN Last administered on 11/01/16 08:53; Admin Dose 1 TAB; Start 10/31/16 at 23:00 Megestrol Acetate (Megace Susp) 800 mg DAILY PO Last administered on 11/04/16 08:56; Admin Dose 800 MG; Start 11/01/16 at 09:00 Metoprolol Succinate (Toprol Xl) 50 mg DAILY PO Last administered on 11/04/16 09:00; Admin Dose 50 MG; Start 11/01/16 at 09:00 Docusate Sodium (Colace) 100 mg BID PO Last administered on 11/04/16 08:59; Admin Dose 100 MG; Start 11/01/16 at 09:00 Senna (Senokot) 1 tab HS PO Last administered on 11/02/16 20:57; Admin Dose 1 TAB; Start 11/01/16 at 21:00 Bisacodyl (Dulcolax Supp) 10 mg DAILY PRN [place] CONSTIPATION; Start 11/01/16 at 06 :30 Lactulose (Enulose) 20 gm DAILY PRN PO CONSTIPATION; Start 11/01/16 at 06:30 Acetaminophen/ Hydrocodone Bitart ([place] (5/325)) 2 tab Q4H PRN PO severe pain Last administered on 11/04/16 09:01; Admin Dose 2 TAB; Start 11/01/16 at 11:30 Allopurinol (Zyloprim) 50 mg DAILY PO Last administered on 11/04/16 08:59; Admin Dose 50 MG; Start 11/02/16 at 09:00 Guaifenesin/ Dextromethorphan (Robitussin Dm Liquid Cup) 10 ml Q4H PRN PO COUGH ; Start 11/01/16 at 16:30 Zolpidem Tartrate (Ambien) 10 mg HS PRN PO INSOMNIA Last administered on 21:00; Admin Dose 10 MG; Start 11/01/16 at 22:00 Prednisone (Prednisone) 15 mg DAILY PO Last administered on 11/04/16 08:59; Admin Dose 15 MG; Start 11/03/16 at 09:00 Assessment/Plan Chief Complaint/Hosp Course 1 Acute gout, tophacious with hyperuricemia and recent arthritis in a typical joint. The acute episode has markedly improved, 2. Renal insufficiency somewhat improved 3 anemia 4 depression Plan 1 Continue on small dose of allopurinol at 50 mg daily. 2 Decrease prednisone to 10mg daily at this point. 3. If patient gets discharged that he should continue on allopurinol 50 mg daily and prednisone at 10 mg daily. 4. If he develops acute gouty attack would increase the prednisone to 40 mg for 1 day then 30 for 1 day and then go down to 20 mg daily 5. If the patient is discharged I would like to see him in the office in 2 weeks. Problems: LENY LOPEZ MD Nov 04, 2016 13:12
--- NOTE | 2016-11-04 16:09 | PN ---
Date/Time of Note Date/Time of Note DATE: 11/04/16 TIME: 16:06 Assessment/Plan VTE Prophylaxis VTE Prophylaxis Intervention: other Lines/Catheters IV Catheter Type (from Nrs): Saline Lock Urinary Cath still in place: No Assessment/Plan Chief Complaint/Hosp Course A/P 1. Ftt; Ac tophaceous gouty arthritis; stable, cont pt/ot/ prednisone/ allupurinol Rheumatology has been consulted Pain management as per rheumatology and acute rehab physician 2. ARF, improved. no nsaids 3. Htn Well-controlled on medical management 4. Anemia; Stable continue to monitor 5. Recent Bronchitis; supportive care 6. Depression Continue home meds 7. Dyslipidemia 8. History of nephrolithiasis Continue to monitor We will continue monitor patient closely for recommendation management treatment as clinical course . Problems: Subjective 24 Hr Interval Summary Free Text/Dictation Patient continues to complain of having upper and lower extremity pain No nausea vomiting diarrhea Denies of having any chest pain Exam/Review of Systems Vital Signs Vitals Vital Signs Date Time Temp Pulse Resp B/P Pulse Ox O2 Delivery O2 Flow Rate FiO2 11/04/16 07:30 98.7 89 18 130/69 97 11/03/16 08:00 Room Air Intake and Output 11/03/16 11/03/16 11/04/16 15:00 23:00 07:00 Intake Total 850 ml 820 ml 1200 ml Output Total 780 ml 1060 ml 1600 ml Balance 70 ml -240 ml -400 ml Exam General: The patient is well-developed, Not in acute distress. HEENT: Atraumatic, normocephalic. The pupils are equal and round . Neck: Supple with full range of motion. Chest: Normal expansion of the thorax during inspiration Lungs: Clear to auscultation bilaterally Heart: Normal S1-S2, Regular rhythm and rate. Abdomen: Soft , nontender, nondistended , bowel sounds are present. Extremities: Normal to inspection, no edema no cyanosis, evidence of bilateral upper extremity/hand contraction and osteoarthritis Neurologic: Normal mental status,The patient is awake, alert and oriented . Results Result Diagram: 11/02/16 0554 11/02/16 0554 Medications Medications Current Medications Morphine Sulfate (morphine) 2 mg Q4H PRN IV PAIN Last administered on t 15:00; Admin Dose 2 MG; Start 10/31/16 at 23:00 Multivitamins Therapeutic (Theragran) 1 tab DAILY PO Last administered on 08:58; Admin Dose 1 TAB; Start 11/01/16 at 09:00 Ondansetron HCl (Zofran Inj) 4 mg Q6H PRN IV NAUSEA AND/OR VOMITING; Start at 23:00 Phenol (Cepastat Lozenge) 1 lozenge Q1H PRN MT SORE THROAT Last administered on 11/04/16 05:09; Admin Dose 1 LOZENGE; Start 10/31/16 at 23:00 Quetiapine Fumarate (Seroquel) 100 mg DAILY PO Last administered on 11/04/16 09:00; Admin Dose 100 MG; Start 11/01/16 at 09:00 Quetiapine Fumarate (Seroquel) 50 mg DAILY PO Last administered on 11/04/16 08 :58; Admin Dose 50 MG; Start 11/01/16 at 09:00 Trazodone HCl (Desyrel) 150 mg HS PO Last administered on 11/03/16 20:55; Admin Dose 150 MG; Start 10/31/16 at 23:00 Acetaminophen (Tylenol Tab) 650 mg Q6H PRN PO PAIN AND OR ELEVATED TEMP; Start 10/31/16 at 23:00 Amlodipine Besylate (Norvasc) 5 mg DAILY PO Last administered on 11/04/16 09: 00; Admin Dose 5 MG; Start 11/01/16 at 09:00 Atorvastatin Calcium (Lipitor) 10 mg DAILY@21 PO Last administered on 20:55; Admin Dose 10 MG; Start 10/31/16 at 23:00 Docusate Sodium (Colace) 100 mg Q12H PRN PO CONSTIPATION; Start 10/31/16 at 23: 00 Famotidine (Pepcid) 20 mg DAILY PO Last administered on 11/04/16 09:00; Admin Dose 20 MG; Start 11/01/16 at 09:00 Heparin Sodium (Porcine) (Heparin (5000 Units/0.5 ml)) 5,000 unit Q12 SC Last administered on 11/04/16 09:05; Admin Dose 5,000 UNIT; Start 10/31/16 at 23:00 Acetaminophen/ Hydrocodone Bitart ([place] (5/325)) 1 tab Q6H PRN PO PAIN Last administered on 11/01/16 08:53; Admin Dose 1 TAB; Start 10/31/16 at 23:00 Megestrol Acetate (Megace Susp) 800 mg DAILY PO Last administered on 11/04/16 08:56; Admin Dose 800 MG; Start 11/01/16 at 09:00 Metoprolol Succinate (Toprol Xl) 50 mg DAILY PO Last administered on 11/04/16 09:00; Admin Dose 50 MG; Start 11/01/16 at 09:00 Docusate Sodium (Colace) 100 mg BID PO Last administered on 11/04/16 08:59; Admin Dose 100 MG; Start 11/01/16 at 09:00 Senna (Senokot) 1 tab HS PO Last administered on 11/02/16 20:57; Admin Dose 1 TAB; Start 11/01/16 at 21:00 Bisacodyl (Dulcolax Supp) 10 mg DAILY PRN [place] CONSTIPATION; Start 11/01/16 at 06 :30 Lactulose (Enulose) 20 gm DAILY PRN PO CONSTIPATION; Start 11/01/16 at 06:30 Acetaminophen/ Hydrocodone Bitart ([place] (5/325)) 2 tab Q4H PRN PO severe pain Last administered on 11/04/16 09:01; Admin Dose 2 TAB; Start 11/01/16 at 11:30 Allopurinol (Zyloprim) 50 mg DAILY PO Last administered on 11/04/16 08:59; Admin Dose 50 MG; Start 11/02/16 at 09:00 Guaifenesin/ Dextromethorphan (Robitussin Dm Liquid Cup) 10 ml Q4H PRN PO COUGH ; Start 11/01/16 at 16:30 Zolpidem Tartrate (Ambien) 10 mg HS PRN PO INSOMNIA Last administered on 21:00; Admin Dose 10 MG; Start 11/01/16 at 22:00 Prednisone (Prednisone) 10 mg DAILY PO ; Start 11/05/16 at 09:00 HENRI HUTCHINSON MD Nov 04, 2016 16:09
[2016-11-04 20:00] VITALS: BP 123/67; RESP 18
[2016-11-04] MEDS: SENNA TAB PO SCH (20:50)
[2016-11-04] MEDS: ATORVASTATIN 10 MG TAB PO SCH (20:51)
[2016-11-04] MEDS: traZODone 50 MG TAB PO SCH (20:51)
[2016-11-04 20:55] VITALS: BP 146/78; PULSE 96; RESP 18
[2016-11-05] MEDS: HYDROCODONE/APAP (5/325) TAB PO PRN ×2 (01:14→08:36)
[2016-11-05] MEDS: morphine 2 MG INJ IV PRN ×3 (03:30→20:40)
[2016-11-05] MEDS: CEPASTAT LOZENGE MT PRN ×3 (03:37→20:55)
[2016-11-05 08:00] VITALS: BP 140/81; PULSE 76; RESP 18
[2016-11-05 08:26] VITALS: BP 140/81; RESP 18
[2016-11-05] MEDS: QUETIAPINE 25 MG TAB PO SCH (08:36)
[2016-11-05] MEDS: predniSONE 5 MG TAB PO SCH (08:37)
[2016-11-05] MEDS: MEGESTROL (40 MG/ML) 10ML CUP PO SCH (08:37)
[2016-11-05] MEDS: FAMOTIDINE 20 MG TAB PO SCH (08:37)
[2016-11-05] MEDS: AMLODIPINE 5 MG TAB PO SCH (08:38)
[2016-11-05] MEDS: QUETIAPINE 100 MG TAB PO SCH (08:38)
[2016-11-05] MEDS: ALLOPURINOL 100 MG TAB PO SCH (08:38)
[2016-11-05] MEDS: METOPROLOL (XL) 50 MG TAB PO SCH (08:39)
[2016-11-05] MEDS: MULTIVITAMINS THERAPEUTIC TAB PO SCH (08:39)
[2016-11-05 08:50] LABS: EOSINOPHILS # 0.1 10^3/ul (0.0-0.5); EOSINOPHILS % 0.8 % (0.0-7.0); HEMATOCRIT 30.3 % (42.0-52.0); HEMOGLOBIN 9.8 g/dl (14.0-18.0); LYMPHOCYTES # 1.9 10^3/ul (0.8-2.9); LYMPHOCYTES % 14.2 % (15.0-51.0); MEAN CORPUSCULAR HEMOGLOBIN 25.6 pg (29.0-33.0); MEAN CORPUSCULAR HGB CONC 32.4 g/dl (32.0-37.0); MEAN CORPUSCULAR VOLUME 79.2 fl (82.0-101.0); MONOCYTE # 0.8 10^3/ul (0.3-0.9); MONOCYTES % 6.2 % (0.0-11.0); NEUTROPHIL # 10.7 10^3/ul (1.6-7.5); NEUTROPHILS % 78.8 % (39.0-77.0); PLATELET COUNT 322 10^3/UL (140-440); RED BLOOD COUNT 3.82 10^6/ul (4.70-6.10); RED CELL DISTRIBUTION WIDTH 21.5 % (11.5-14.5); UNCORRECTED WBC 13.6 10^3/ul (4.8-10.8); WHITE BLOOD COUNT 13.6 10^3/ul (4.8-10.8)
[2016-11-05] MEDS: DOCUSATE SODIUM 100 MG CAP PO SCH ×2 (09:00→20:33)
[2016-11-05 09:08] LABS: CREATININE 1.68 mg/dl (0.61-1.24)
[2016-11-05 09:09] LABS: MAGNESIUM 1.3 mg/dl (1.7-2.5); PHOSPHORUS 3.6 mg/dl (2.5-4.9)
[2016-11-05 09:10] LABS: CONDITION 1; LH ANALYZER COMMENTS 1
[2016-11-05] MEDS: HEPARIN 5,000 UNIT/0.5 ML SYG SC SCH ×2 (09:47→20:37)
[2016-11-05] MEDS: MAGNESIUM OXIDE 400 MG TAB PO SCH (09:52)
--- NOTE | 2016-11-05 11:17 | PN ---
DATE: 11/05/2016 SUBJECTIVE: The patient is stable, no acute events overnight. No fevers, chills, nausea, vomiting, no shortness of breath. OBJECTIVE: VITAL SIGNS: Blood pressure is 140/81, respiration 18, pulse 76, temperature 98.6. HEENT: Head is normocephalic. NECK: Supple. HEART: Regular rate. LUNGS: Show diminished breath sounds at base. ABDOMEN: Soft, nontender to palpation. No rebound or guarding. EXTREMITIES: Negative for clubbing, cyanosis. No edema. DERMATOLOGIC: No rashes. MUSCULOSKELETAL: The patient has noted scattered deformity on his toes. No change. NEUROLOGIC: No change. MEDICATIONS: The patient's medications have been reviewed. LABORATORY DATA: Showed sodium 138, potassium 5.0, chloride 103, BUN 52, creatinine 1.63, magnesiu m 1.3. White count 13.6, hemoglobin 9.8, hematocrit 30.3, platelet count 322. ASSESSMENT AND PLAN: 1. Nonoliguric acute kidney injury on top of chronic kidney disease with unknown baseline creatinin e. Etiology of acute kidney injury is secondary to acute tubular necrosis. Renal function continue s to improve. Continue supportive care, renally dose all medications, avoid nephrotoxins. 2. Anemia. Continue to monitor hemoglobin and hematocrit levels. 3. Mineral bone disorder . Continue to monitor calcium and phosphorus levels. 4. Hypomagnesemia. We will place the patient on magnesium oxide 400 mg daily. 5. Acute gouty flare. The patient is on prednisone, continue. 6. Bronchitis, improved. Continue medical management. 7. Hypertension. Continue current blood pressure regimen. 8. Insomnia. Continue Ambien. Dictated By: HERO LI/FARRAH Conf#: [id number] DID#: [id number]
--- NOTE | 2016-11-05 11:53 | CONS ---
Date/Time of Note Date/Time of Note DATE: 11/05/16 TIME: 11:53 Consult Date/Type/Reason Admit Date/Time Oct 31, 2016 at 22:12 Type of Consultation: Rheum. Subjective Looking forward to going home soon Objective Vital Signs Date Time Temp Pulse Resp B/P Pulse Ox O2 Delivery O2 Flow Rate FiO2 11/05/16 08:26 98.6 76 18 140/81 97 11/05/16 08:00 Room Air Intake and Output 11/04/16 11/04/16 11/05/16 14:59 22:59 06:59 Intake Total 620 ml 1200 ml Output Total 520 ml 1100 ml Balance 100 ml 100 ml pulm- cta amb sba Results/Medications Result Diagram: 11/05/1614 11/05/16 0714 Results 24 hrs Laboratory Tests Test 11/05/16 07:14 Anion Gap 17 H Basophils # 0.0 Basophils % 0.0 Blood Morphology Comment Blood Urea Nitrogen 52 H Calcium Level 10.0 Carbon Dioxide Level 23 Chloride Level 103 Creatinine 1.68 H Eosinophils # 0.1 Eosinophils % 0.8 Glucose Level 86 Hematocrit 30.3 L Hemoglobin 9.8 L Lymphocytes # 1.9 Lymphocytes % 14.2 L Magnesium Level 1.3 L Mean Corpuscular Hemoglobin 25.6 L Mean Corpuscular Hemoglobin Concent 32.4 Mean Corpuscular Volume 79.2 L Mean Platelet Volume 9.0 Monocytes # 0.8 Monocytes % 6.2 Neutrophils # 10.7 H Neutrophils % 78.8 H Nucleated Red Blood Cells # 0.0 Nucleated Red Blood Cells % 0.0 Phosphorus Level 3.6 Platelet Count 322 Potassium Level 5.0 Red Blood Count 3.82 L Red Cell Distribution Width 21.5 H Sodium Level 138 White Blood Count 13.6 H Medications Current Medications Morphine Sulfate (morphine) 2 mg Q4H PRN IV PAIN Last administered on 09:43; Admin Dose 2 MG; Start 10/31/16 at 23:00 Multivitamins Therapeutic (Theragran) 1 tab DAILY PO Last administered on 08:39; Admin Dose 1 TAB; Start 11/01/16 at 09:00 Ondansetron HCl (Zofran Inj) 4 mg Q6H PRN IV NAUSEA AND/OR VOMITING; Start at 23:00 Phenol (Cepastat Lozenge) 1 lozenge Q1H PRN MT SORE THROAT Last administered on 11/05/16 10:08; Admin Dose 1 LOZENGE; Start 10/31/16 at 23:00 Quetiapine Fumarate (Seroquel) 100 mg DAILY PO Last administered on 11/05/16 08:38; Admin Dose 100 MG; Start 11/01/16 at 09:00 Quetiapine Fumarate (Seroquel) 50 mg DAILY PO Last administered on 11/05/16 08 :36; Admin Dose 50 MG; Start 11/01/16 at 09:00 Trazodone HCl (Desyrel) 150 mg HS PO Last administered on 11/04/16 20:51; Admin Dose 150 MG; Start 10/31/16 at 23:00 Acetaminophen (Tylenol Tab) 650 mg Q6H PRN PO PAIN AND OR ELEVATED TEMP; Start 10/31/16 at 23:00 Amlodipine Besylate (Norvasc) 5 mg DAILY PO Last administered on 11/05/16 08: 38; Admin Dose 5 MG; Start 11/01/16 at 09:00 Atorvastatin Calcium (Lipitor) 10 mg DAILY@21 PO Last administered on 20:51; Admin Dose 10 MG; Start 10/31/16 at 23:00 Docusate Sodium (Colace) 100 mg Q12H PRN PO CONSTIPATION; Start 10/31/16 at 23: 00 Famotidine (Pepcid) 20 mg DAILY PO Last administered on 11/05/16 08:37; Admin Dose 20 MG; Start 11/01/16 at 09:00 Heparin Sodium (Porcine) (Heparin (5000 Units/0.5 ml)) 5,000 unit Q12 SC Last administered on 11/05/16 09:47; Admin Dose 5,000 UNIT; Start 10/31/16 at 23:00 Acetaminophen/ Hydrocodone Bitart ([place] (5/325)) 1 tab Q6H PRN PO PAIN Last administered on 11/01/16 08:53; Admin Dose 1 TAB; Start 10/31/16 at 23:00 Megestrol Acetate (Megace Susp) 800 mg DAILY PO Last administered on 11/05/16 08:37; Admin Dose 800 MG; Start 11/01/16 at 09:00 Metoprolol Succinate (Toprol Xl) 50 mg DAILY PO Last administered on 11/05/16 08:39; Admin Dose 50 MG; Start 11/01/16 at 09:00 Docusate Sodium (Colace) 100 mg BID PO Last administered on 11/04/16 08:59; Admin Dose 100 MG; Start 11/01/16 at 09:00 Senna (Senokot) 1 tab HS PO Last administered on 11/02/16 20:57; Admin Dose 1 TAB; Start 11/01/16 at 21:00 Bisacodyl (Dulcolax Supp) 10 mg DAILY PRN [place] CONSTIPATION; Start 11/01/16 at 06 :30 Lactulose (Enulose) 20 gm DAILY PRN PO CONSTIPATION; Start 11/01/16 at 06:30 Acetaminophen/ Hydrocodone Bitart ([place] (5/325)) 2 tab Q4H PRN PO severe pain Last administered on 11/05/16 08:36; Admin Dose 2 TAB; Start 11/01/16 at 11:30 Allopurinol (Zyloprim) 50 mg DAILY PO Last administered on 11/05/16 08:38; Admin Dose 50 MG; Start 11/02/16 at 09:00 Guaifenesin/ Dextromethorphan (Robitussin Dm Liquid Cup) 10 ml Q4H PRN PO COUGH ; Start 11/01/16 at 16:30 Zolpidem Tartrate (Ambien) 10 mg HS PRN PO INSOMNIA Last administered on 21:00; Admin Dose 10 MG; Start 11/01/16 at 22:00 Prednisone (Prednisone) 10 mg DAILY PO Last administered on 11/05/16 08:37; Admin Dose 10 MG; Start 11/05/16 at 09:00 Magnesium Oxide (Mag-Ox 400) 400 mg DAILY PO Last administered on 11/05/16 09: 52; Admin Dose 400 MG; Start 11/05/16 at 09:30 Assessment/Plan Additional Assessment/Plan Rehab- Gouty arthritis flare affecting multiple joints including bilateral elbows, wrists, knees and feet. Steady progress with rehab program Bronchitis. Acute on chronic kidney disease. Hypertension. Dyslipidemia. Depression. Orthostatic hypotension- abd binder for REFUGIO Cortez MD Nov 05, 2016 11:53
--- NOTE | 2016-11-05 13:55 | PN ---
Date/Time of Note Date/Time of Note DATE: 11/05/16 TIME: 13:54 Assessment/Plan VTE Prophylaxis VTE Prophylaxis Intervention: SCD's Lines/Catheters IV Catheter Type (from Nrs): Saline Lock Urinary Cath still in place: No Assessment/Plan Chief Complaint/Hosp Course A/P 1. Ftt; Ac tophaceous gouty arthritis; stable, cont pt/ot/ prednisone/ allupurinol Rheumatology has been consulted Pain management as per rheumatology and acute rehab physician 2. ARF, improved. no nsaids 3. Htn Well-controlled on medical management 4. Anemia; Stable continue to monitor 5. Recent Bronchitis; supportive care 6. Depression Continue home meds 7. Dyslipidemia 8. History of nephrolithiasis Continue to monitor We will continue monitor patient closely for recommendation management treatment as clinical course . Problems: Subjective 24 Hr Interval Summary Free Text/Dictation Patient continues to complain of having upper and lower extremity pain Minimal assist with ambulation Denies any chest pain or shortness of breath Exam/Review of Systems Vital Signs Vitals Vital Signs Date Time Temp Pulse Resp B/P Pulse Ox O2 Delivery O2 Flow Rate FiO2 11/05/16 08:26 98.6 76 18 140/81 97 11/05/16 08:00 Room Air Intake and Output 11/04/16 11/04/16 11/05/16 15:00 23:00 07:00 Intake Total 620 ml 1200 ml Output Total 520 ml 1100 ml Balance 100 ml 100 ml Exam General: The patient is well-developed, Not in acute distress. HEENT: Atraumatic, normocephalic. The pupils are equal and round . Neck: Supple with full range of motion. Chest: Normal expansion of the thorax during inspiration Lungs: Clear to auscultation bilaterally Heart: Normal S1-S2, Regular rhythm and rate. Abdomen: Soft , nontender, nondistended , bowel sounds are present. Extremities: Bilateral upper extremities/fingers contraction, no edema no cyanosis Neurologic: Normal mental status,The patient is awake, alert and oriented . Results Result Diagram: 11/05/1614 11/05/1614 Results 24 hrs Laboratory Tests Test 11/05/16 07:14 Anion Gap 17 H Basophils # 0.0 Basophils % 0.0 Blood Morphology Comment Blood Urea Nitrogen 52 H Calcium Level 10.0 Carbon Dioxide Level 23 Chloride Level 103 Creatinine 1.68 H Eosinophils # 0.1 Eosinophils % 0.8 Glucose Level 86 Hematocrit 30.3 L Hemoglobin 9.8 L Lymphocytes # 1.9 Lymphocytes % 14.2 L Magnesium Level 1.3 L Mean Corpuscular Hemoglobin 25.6 L Mean Corpuscular Hemoglobin Concent 32.4 Mean Corpuscular Volume 79.2 L Mean Platelet Volume 9.0 Monocytes # 0.8 Monocytes % 6.2 Neutrophils # 10.7 H Neutrophils % 78.8 H Nucleated Red Blood Cells # 0.0 Nucleated Red Blood Cells % 0.0 Phosphorus Level 3.6 Platelet Count 322 Potassium Level 5.0 Red Blood Count 3.82 L Red Cell Distribution Width 21.5 H Sodium Level 138 White Blood Count 13.6 H Medications Medications Current Medications Morphine Sulfate (morphine) 2 mg Q4H PRN IV PAIN Last administered on 09:43; Admin Dose 2 MG; Start 10/31/16 at 23:00 Multivitamins Therapeutic (Theragran) 1 tab DAILY PO Last administered on 08:39; Admin Dose 1 TAB; Start 11/01/16 at 09:00 Ondansetron HCl (Zofran Inj) 4 mg Q6H PRN IV NAUSEA AND/OR VOMITING; Start at 23:00 Phenol (Cepastat Lozenge) 1 lozenge Q1H PRN [place] SORE THROAT Last administered on 11/05/16 10:08; Admin Dose 1 LOZENGE; Start 10/31/16 at 23:00 Quetiapine Fumarate (Seroquel) 100 mg DAILY PO Last administered on 11/05/16 08:38; Admin Dose 100 MG; Start 11/01/16 at 09:00 Quetiapine Fumarate (Seroquel) 50 mg DAILY PO Last administered on 11/05/16 08 :36; Admin Dose 50 MG; Start 11/01/16 at 09:00 Trazodone HCl (Desyrel) 150 mg HS PO Last administered on 11/04/16 20:51; Admin Dose 150 MG; Start 10/31/16 at 23:00 Acetaminophen (Tylenol Tab) 650 mg Q6H PRN PO PAIN AND OR ELEVATED TEMP; Start 10/31/16 at 23:00 Amlodipine Besylate (Norvasc) 5 mg DAILY PO Last administered on 11/05/16 08: 38; Admin Dose 5 MG; Start 11/01/16 at 09:00 Atorvastatin Calcium (Lipitor) 10 mg DAILY@21 PO Last administered on 20:51; Admin Dose 10 MG; Start 10/31/16 at 23:00 Docusate Sodium (Colace) 100 mg Q12H PRN PO CONSTIPATION; Start 10/31/16 at 23: 00 Famotidine (Pepcid) 20 mg DAILY PO Last administered on 11/05/16 08:37; Admin Dose 20 MG; Start 11/01/16 at 09:00 Heparin Sodium (Porcine) (Heparin (5000 Units/0.5 ml)) 5,000 unit Q12 SC Last administered on 11/05/16 09:47; Admin Dose 5,000 UNIT; Start 10/31/16 at 23:00 Acetaminophen/ Hydrocodone Bitart ([place] (5/325)) 1 tab Q6H PRN PO PAIN Last administered on 11/01/16 08:53; Admin Dose 1 TAB; Start 10/31/16 at 23:00 Megestrol Acetate (Megace Susp) 800 mg DAILY PO Last administered on 11/05/16 08:37; Admin Dose 800 MG; Start 11/01/16 at 09:00 Metoprolol Succinate (Toprol Xl) 50 mg DAILY PO Last administered on 11/05/16 08:39; Admin Dose 50 MG; Start 11/01/16 at 09:00 Docusate Sodium (Colace) 100 mg BID PO Last administered on 11/04/16 08:59; Admin Dose 100 MG; Start 11/01/16 at 09:00 Senna (Senokot) 1 tab HS PO Last administered on 11/02/16 20:57; Admin Dose 1 TAB; Start 11/01/16 at 21:00 Bisacodyl (Dulcolax Supp) 10 mg DAILY PRN [place] CONSTIPATION; Start 11/01/16 at 06 :30 Lactulose (Enulose) 20 gm DAILY PRN PO CONSTIPATION; Start 11/01/16 at 06:30 Acetaminophen/ Hydrocodone Bitart ([place] (5/325)) 2 tab Q4H PRN PO severe pain Last administered on 11/05/16 08:36; Admin Dose 2 TAB; Start 11/01/16 at 11:30 Allopurinol (Zyloprim) 50 mg DAILY PO Last administered on 11/05/16 08:38; Admin Dose 50 MG; Start 11/02/16 at 09:00 Guaifenesin/ Dextromethorphan (Robitussin Dm Liquid Cup) 10 ml Q4H PRN PO COUGH ; Start 11/01/16 at 16:30 Zolpidem Tartrate (Ambien) 10 mg HS PRN PO INSOMNIA Last administered on 21:00; Admin Dose 10 MG; Start 11/01/16 at 22:00 Prednisone (Prednisone) 10 mg DAILY PO Last administered on 11/05/16 08:37; Admin Dose 10 MG; Start 11/05/16 at 09:00 Magnesium Oxide (Mag-Ox 400) 400 mg DAILY PO Last administered on 11/05/16 09: 52; Admin Dose 400 MG; Start 11/05/16 at 09:30 HENRI HUTCHINSON MD Nov 05, 2016 13:55
--- NOTE | 2016-11-05 14:00 | CONS ---
Date/Time of Note Date/Time of Note DATE: 11/05/16 TIME: 13:57 Consult Date/Type/Reason Admit Date/Time Oct 31, 2016 at 22:12 Initial Consult Date Oct 31, 2016 Type of Consultation: Rheum. Reason for Consultation Gout Objective Vital Signs Date Time Temp Pulse Resp B/P Pulse Ox O2 Delivery O2 Flow Rate FiO2 11/05/16 08:26 98.6 76 18 140/81 97 11/05/16 08:00 Room Air Intake and Output 11/04/16 11/04/16 11/05/16 15:00 23:00 07:00 Intake Total 620 ml 1200 ml Output Total 520 ml 1100 ml Balance 100 ml 100 ml Laboratory studies from previous admission revealed negative rheumatoid factor negative AGNES negative ANCA Results/Medications Result Diagram: 11/05/1671311/05/16713 Results 24 hrs Laboratory Tests Test 11/05/16 07:14 Anion Gap 17 H Basophils # 0.0 Basophils % 0.0 Blood Morphology Comment Blood Urea Nitrogen 52 H Calcium Level 10.0 Carbon Dioxide Level 23 Chloride Level 103 Creatinine 1.68 H Eosinophils # 0.1 Eosinophils % 0.8 Glucose Level 86 Hematocrit 30.3 L Hemoglobin 9.8 L Lymphocytes # 1.9 Lymphocytes % 14.2 L Magnesium Level 1.3 L Mean Corpuscular Hemoglobin 25.6 L Mean Corpuscular Hemoglobin Concent 32.4 Mean Corpuscular Volume 79.2 L Mean Platelet Volume 9.0 Monocytes # 0.8 Monocytes % 6.2 Neutrophils # 10.7 H Neutrophils % 78.8 H Nucleated Red Blood Cells # 0.0 Nucleated Red Blood Cells % 0.0 Phosphorus Level 3.6 Platelet Count 322 Potassium Level 5.0 Red Blood Count 3.82 L Red Cell Distribution Width 21.5 H Sodium Level 138 White Blood Count 13.6 H Medications Current Medications Morphine Sulfate (morphine) 2 mg Q4H PRN IV PAIN Last administered on 09:43; Admin Dose 2 MG; Start 10/31/16 at 23:00 Multivitamins Therapeutic (Theragran) 1 tab DAILY PO Last administered on 08:39; Admin Dose 1 TAB; Start 11/01/16 at 09:00 Ondansetron HCl (Zofran Inj) 4 mg Q6H PRN IV NAUSEA AND/OR VOMITING; Start at 23:00 Phenol (Cepastat Lozenge) 1 lozenge Q1H PRN [place] SORE THROAT Last administered on 11/05/16 10:08; Admin Dose 1 LOZENGE; Start 10/31/16 at 23:00 Quetiapine Fumarate (Seroquel) 100 mg DAILY PO Last administered on 11/05/16 08:38; Admin Dose 100 MG; Start 11/01/16 at 09:00 Quetiapine Fumarate (Seroquel) 50 mg DAILY PO Last administered on 11/05/16 08 :36; Admin Dose 50 MG; Start 11/01/16 at 09:00 Trazodone HCl (Desyrel) 150 mg HS PO Last administered on 11/04/16 20:51; Admin Dose 150 MG; Start 10/31/16 at 23:00 Acetaminophen (Tylenol Tab) 650 mg Q6H PRN PO PAIN AND OR ELEVATED TEMP; Start 10/31/16 at 23:00 Amlodipine Besylate (Norvasc) 5 mg DAILY PO Last administered on 11/05/16 08: 38; Admin Dose 5 MG; Start 11/01/16 at 09:00 Atorvastatin Calcium (Lipitor) 10 mg DAILY@21 PO Last administered on 20:51; Admin Dose 10 MG; Start 10/31/16 at 23:00 Docusate Sodium (Colace) 100 mg Q12H PRN PO CONSTIPATION; Start 10/31/16 at 23: 00 Famotidine (Pepcid) 20 mg DAILY PO Last administered on 11/05/16 08:37; Admin Dose 20 MG; Start 11/01/16 at 09:00 Heparin Sodium (Porcine) (Heparin (5000 Units/0.5 ml)) 5,000 unit Q12 SC Last administered on 11/05/16 09:47; Admin Dose 5,000 UNIT; Start 10/31/16 at 23:00 Acetaminophen/ Hydrocodone Bitart ([place] (5/325)) 1 tab Q6H PRN PO PAIN Last administered on 11/01/16 08:53; Admin Dose 1 TAB; Start 10/31/16 at 23:00 Megestrol Acetate (Megace Susp) 800 mg DAILY PO Last administered on 11/05/16 08:37; Admin Dose 800 MG; Start 11/01/16 at 09:00 Metoprolol Succinate (Toprol Xl) 50 mg DAILY PO Last administered on 11/05/16 08:39; Admin Dose 50 MG; Start 11/01/16 at 09:00 Docusate Sodium (Colace) 100 mg BID PO Last administered on 11/04/16 08:59; Admin Dose 100 MG; Start 11/01/16 at 09:00 Senna (Senokot) 1 tab HS PO Last administered on 11/02/16 20:57; Admin Dose 1 TAB; Start 11/01/16 at 21:00 Bisacodyl (Dulcolax Supp) 10 mg DAILY PRN [place] CONSTIPATION; Start 11/01/16 at 06 :30 Lactulose (Enulose) 20 gm DAILY PRN PO CONSTIPATION; Start 11/01/16 at 06:30 Acetaminophen/ Hydrocodone Bitart ([place] (5/325)) 2 tab Q4H PRN PO severe pain Last administered on 11/05/16 08:36; Admin Dose 2 TAB; Start 11/01/16 at 11:30 Allopurinol (Zyloprim) 50 mg DAILY PO Last administered on 11/05/16 08:38; Admin Dose 50 MG; Start 11/02/16 at 09:00 Guaifenesin/ Dextromethorphan (Robitussin Dm Liquid Cup) 10 ml Q4H PRN PO COUGH ; Start 11/01/16 at 16:30 Zolpidem Tartrate (Ambien) 10 mg HS PRN PO INSOMNIA Last administered on 21:00; Admin Dose 10 MG; Start 11/01/16 at 22:00 Prednisone (Prednisone) 10 mg DAILY PO Last administered on 11/05/16 08:37; Admin Dose 10 MG; Start 11/05/16 at 09:00 Magnesium Oxide (Mag-Ox 400) 400 mg DAILY PO Last administered on 11/05/16 09: 52; Admin Dose 400 MG; Start 11/05/16 at 09:30 Assessment/Plan Chief Complaint/Hosp Course 1 Acute gout, tophacious with hyperuricemia and recent arthritis in a typical joint. The acute episode has markedly improved, 2. Renal insufficiency somewhat improved. Creatinine now at 1.68 3 anemia 4 depression Plan 1 Continue on small dose of allopurinol at 50 mg daily. 2 prednisone decreased to 10mg daily today. 3. If patient gets discharged that he should continue on allopurinol 50 mg daily and prednisone at 10 mg daily. 4. If he develops acute gouty attack would increase the prednisone to 40 mg for 1 day then 30 for 1 day and then go down to 20 mg daily 5. If the patient is discharged I would like to see him in the office in 2 weeks. Problems: LENY LOPEZ MD Nov 05, 2016 14:00
[2016-11-05 19:38] VITALS: BP 126/71; RESP 19
[2016-11-05] MEDS: ATORVASTATIN 10 MG TAB PO SCH (20:34)
[2016-11-05] MEDS: traZODone 50 MG TAB PO SCH (20:34)
[2016-11-05] MEDS: SENNA TAB PO SCH (20:34)
[2016-11-06 07:39] VITALS: BP 125/60; RESP 18
[2016-11-06] MEDS: morphine 2 MG INJ IV PRN ×3 (08:23→19:11)
[2016-11-06] MEDS: MULTIVITAMINS THERAPEUTIC TAB PO SCH (08:27)
[2016-11-06] MEDS: MEGESTROL (40 MG/ML) 10ML CUP PO SCH ×2 (08:27→08:34)
[2016-11-06] MEDS: FAMOTIDINE 20 MG TAB PO SCH (08:27)
[2016-11-06] MEDS: predniSONE 5 MG TAB PO SCH (08:28)
[2016-11-06] MEDS: ALLOPURINOL 100 MG TAB PO SCH (08:29)
[2016-11-06] MEDS: MAGNESIUM OXIDE 400 MG TAB PO SCH (08:29)
[2016-11-06] MEDS: QUETIAPINE 25 MG TAB PO SCH (08:29)
[2016-11-06] MEDS: QUETIAPINE 100 MG TAB PO SCH (08:29)
[2016-11-06] MEDS: AMLODIPINE 5 MG TAB PO SCH (08:32)
[2016-11-06] MEDS: DOCUSATE SODIUM 100 MG CAP PO SCH ×2 (08:33→20:11)
[2016-11-06] MEDS: HEPARIN 5,000 UNIT/0.5 ML SYG SC SCH ×2 (10:03→20:22)
[2016-11-06] MEDS: METOPROLOL (XL) 50 MG TAB PO SCH (10:05)
--- NOTE | 2016-11-06 10:42 | CONS ---
Date/Time of Note Date/Time of Note DATE: 11/06/16 TIME: 10:40 Consult Date/Type/Reason Admit Date/Time Oct 31, 2016 at 22:12 Type of Consultation: Rheum. Subjective Patient would like to go home in AM Objective sba ambulation Vital Signs Date Time Temp Pulse Resp B/P Pulse Ox O2 Delivery O2 Flow Rate FiO2 11/06/16 07:39 98.6 81 18 125/60 97 11/05/16 08:00 Room Air Intake and Output 11/05/16 11/05/16 11/06/16 15:00 23:00 07:00 Intake Total 600 ml 240 ml 1180 ml Output Total 750 ml 300 ml 700 ml Balance -150 ml -60 ml 480 ml Results/Medications Result Diagram: 11/05/1614 11/05/1614 Results 24 hrs Laboratory Tests Test 11/06/16 07:56 Lab Scanned Report REFERENCE LAB Medications Current Medications Morphine Sulfate (morphine) 2 mg Q4H PRN IV PAIN Last administered on 08:23; Admin Dose 2 MG; Start 10/31/16 at 23:00 Multivitamins Therapeutic (Theragran) 1 tab DAILY PO Last administered on 08:27; Admin Dose 1 TAB; Start 11/01/16 at 09:00 Ondansetron HCl (Zofran Inj) 4 mg Q6H PRN IV NAUSEA AND/OR VOMITING; Start at 23:00 Phenol (Cepastat Lozenge) 1 lozenge Q1H PRN [place] SORE THROAT Last administered on 11/05/16 20:55; Admin Dose 1 LOZENGE; Start 10/31/16 at 23:00 Quetiapine Fumarate (Seroquel) 100 mg DAILY PO Last administered on 11/06/16 08:29; Admin Dose 100 MG; Start 11/01/16 at 09:00 Quetiapine Fumarate (Seroquel) 50 mg DAILY PO Last administered on 11/06/16 08 :29; Admin Dose 50 MG; Start 11/01/16 at 09:00 Trazodone HCl (Desyrel) 150 mg HS PO Last administered on 11/05/16 20:34; Admin Dose 150 MG; Start 10/31/16 at 23:00 Acetaminophen (Tylenol Tab) 650 mg Q6H PRN PO PAIN AND OR ELEVATED TEMP; Start 10/31/16 at 23:00 Amlodipine Besylate (Norvasc) 5 mg DAILY PO Last administered on 11/06/16 08: 32; Admin Dose 5 MG; Start 11/01/16 at 09:00 Atorvastatin Calcium (Lipitor) 10 mg DAILY@21 PO Last administered on 20:34; Admin Dose 10 MG; Start 10/31/16 at 23:00 Docusate Sodium (Colace) 100 mg Q12H PRN PO CONSTIPATION; Start 10/31/16 at 23: 00 Famotidine (Pepcid) 20 mg DAILY PO Last administered on 11/06/16 08:27; Admin Dose 20 MG; Start 11/01/16 at 09:00 Heparin Sodium (Porcine) (Heparin (5000 Units/0.5 ml)) 5,000 unit Q12 SC Last administered on 11/06/16 10:03; Admin Dose 5,000 UNIT; Start 10/31/16 at 23:00 Acetaminophen/ Hydrocodone Bitart ([place] (5/325)) 1 tab Q6H PRN PO PAIN Last administered on 11/01/16 08:53; Admin Dose 1 TAB; Start 10/31/16 at 23:00 Megestrol Acetate (Megace Susp) 800 mg DAILY PO Last administered on 11/06/16 08:27; Admin Dose 800 MG; Start 11/01/16 at 09:00 Metoprolol Succinate (Toprol Xl) 50 mg DAILY PO Last administered on 11/06/16 10:05; Admin Dose 50 MG; Start 11/01/16 at 09:00 Docusate Sodium (Colace) 100 mg BID PO Last administered on 11/05/16 20:33; Admin Dose 100 MG; Start 11/01/16 at 09:00 Senna (Senokot) 1 tab HS PO Last administered on 11/05/16 20:34; Admin Dose 1 TAB; Start 11/01/16 at 21:00 Bisacodyl (Dulcolax Supp) 10 mg DAILY PRN [place] CONSTIPATION; Start 11/01/16 at 06 :30 Lactulose (Enulose) 20 gm DAILY PRN PO CONSTIPATION; Start 11/01/16 at 06:30 Acetaminophen/ Hydrocodone Bitart ([place] (5/325)) 2 tab Q4H PRN PO severe pain Last administered on 11/05/16 08:36; Admin Dose 2 TAB; Start 11/01/16 at 11:30 Allopurinol (Zyloprim) 50 mg DAILY PO Last administered on 11/06/16 08:29; Admin Dose 50 MG; Start 11/02/16 at 09:00 Guaifenesin/ Dextromethorphan (Robitussin Dm Liquid Cup) 10 ml Q4H PRN PO COUGH ; Start 11/01/16 at 16:30 Zolpidem Tartrate (Ambien) 10 mg HS PRN PO INSOMNIA Last administered on 21:00; Admin Dose 10 MG; Start 11/01/16 at 22:00 Prednisone (Prednisone) 10 mg DAILY PO Last administered on 11/06/16 08:28; Admin Dose 10 MG; Start 11/05/16 at 09:00 Magnesium Oxide (Mag-Ox 400) 400 mg DAILY PO Last administered on 11/06/16 08: 29; Admin Dose 400 MG; Start 11/05/16 at 09:30 Assessment/Plan Additional Assessment/Plan Rehab- Gouty arthritis flare affecting multiple joints including bilateral elbows, wrists, knees and feet. Good progress, anticipate dc tomorrow with home health follow up Bronchitis. Acute on chronic kidney disease. Hypertension. Dyslipidemia. Depression. Orthostatic hypotension- abd binder for REFUGIO Cortez MD Nov 06, 2016 10:42
--- NOTE | 2016-11-06 11:09 | PN ---
DATE: 11/06/2016 SUBJECTIVE: The patient is stable, no acute events overnight. No fevers, chills, nausea, vomiting, no shortness of breath. OBJECTIVE: VITAL SIGNS: Blood pressure is 125/60, respirations 18, pulse 81, temperature 98.6. HEENT: Head is normocephalic. NECK: Supple. HEART: Regular rate. LUNGS: Show diminished breath sounds at base. ABDOMEN: Soft, nontender to palpation without rebound or guarding. EXTREMITIES: Negative for clubbing, cyanosis, no edema. DERMATOLOGIC: No rashes. MUSCULOSKELETAL: No joint effusions. NEUROLOGIC: No change in exam. MEDICATIONS: The patient's medications have been reviewed. LABORATORY DATA: Shows a sodium of 138, potassium 4.0, chloride 103, BUN 52, creatinine ____, magne sium 1.3. ASSESSMENT AND PLAN: 1. Nonoliguric acute kidney injury on top of chronic kidney disease with unknown baseline creatinin e. Etiology of acute kidney injury is secondary to acute tubular necrosis. Renal function has impr trev. Continue supportive care, renally dose medications, avoid nephrotoxins. 2. Anemia. Continue to monitor H and H levels. 3. Mineral bone disorder. Continue to monitor calcium and phosphorus levels. 4. Hypomagnesemia. The patient is on magnesium oxide. We will continue. We will follow up repeat magnesium level in 1 to 2 days. 5. Acute kidney ____, clinically improving. Continue prednisone taper. 6. Bronchitis. The patient is status post antibiotics. 7. Hypertension. Continue current blood pressure regimen. 8. Insomnia. Continue Ambien. Dictated By: HERO LI/FARRAH Conf#: [id number] DID#: [id number]
[2016-11-06] MEDS: CEPASTAT LOZENGE MT PRN ×2 (14:08→20:17)
--- NOTE | 2016-11-06 15:29 | PN ---
Date/Time of Note Date/Time of Note DATE: 11/06/16 TIME: 15:28 Assessment/Plan VTE Prophylaxis VTE Prophylaxis Intervention: SCD's Lines/Catheters IV Catheter Type (from Nrsg): Saline Lock Urinary Cath still in place: No Assessment/Plan Chief Complaint/Hosp Course A/P 1. Ftt; Ac tophaceous gouty arthritis; stable, cont pt/ot/ prednisone/ allupurinol Rheumatology has been consulted Pain management as per rheumatology and acute rehab physician 2. ARF, improved. no nsaids 3. Htn Well-controlled on medical management 4. Anemia; Stable continue to monitor 5. Recent Bronchitis; supportive care 6. Depression Continue home meds 7. Dyslipidemia 8. History of nephrolithiasis Continue to monitor We will continue monitor patient closely for recommendation management treatment as clinical course . Problems: Subjective 24 Hr Interval Summary Free Text/Dictation Patient continues to complain of having generalized pain body ache Tolerating oral intake Exam/Review of Systems Vital Signs Vitals Vital Signs Date Time Temp Pulse Resp B/P Pulse Ox O2 Delivery O2 Flow Rate FiO2 11/06/16 07:39 98.6 81 18 125/60 97 11/05/16 08:00 Room Air Intake and Output 11/05/16 11/05/16 11/06/16 15:00 23:00 07:00 Intake Total 600 ml 240 ml 1180 ml Output Total 750 ml 300 ml 700 ml Balance -150 ml -60 ml 480 ml Exam General: The patient is well-developed, Not in acute distress. HEENT: Atraumatic, normocephalic. The pupils are equal and round . Neck: Supple with full range of motion. Chest: Normal expansion of the thorax during inspiration Lungs: Clear to auscultation bilaterally Heart: Normal S1-S2, Regular rhythm and rate. Abdomen: Soft , nontender, nondistended , bowel sounds are present. Extremities: Deformity of bilateral upper extremity/digits, no edema no cyanosis Neurologic: Normal mental status,The patient is awake, alert and oriented . Results Result Diagram: 11/05/1614 11/05/16713 Results 24 hrs Laboratory Tests Test 11/06/16 07:56 Lab Scanned Report REFERENCE LAB Medications Medications Current Medications Morphine Sulfate (morphine) 2 mg Q4H PRN IV PAIN Last administered on t 14:09; Admin Dose 2 MG; Start 10/31/16 at 23:00 Multivitamins Therapeutic (Theragran) 1 tab DAILY PO Last administered on 08:27; Admin Dose 1 TAB; Start 11/01/16 at 09:00 Ondansetron HCl (Zofran Inj) 4 mg Q6H PRN IV NAUSEA AND/OR VOMITING; Start at 23:00 Phenol (Cepastat Lozenge) 1 lozenge Q1H PRN [place] SORE THROAT Last administered on 11/06/16 14:08; Admin Dose 1 LOZENGE; Start 10/31/16 at 23:00 Quetiapine Fumarate (Seroquel) 100 mg DAILY PO Last administered on 11/06/16 08:29; Admin Dose 100 MG; Start 11/01/16 at 09:00 Quetiapine Fumarate (Seroquel) 50 mg DAILY PO Last administered on 11/06/16 08 :29; Admin Dose 50 MG; Start 11/01/16 at 09:00 Trazodone HCl (Desyrel) 150 mg HS PO Last administered on 11/05/16 20:34; Admin Dose 150 MG; Start 10/31/16 at 23:00 Acetaminophen (Tylenol Tab) 650 mg Q6H PRN PO PAIN AND OR ELEVATED TEMP; Start 10/31/16 at 23:00 Amlodipine Besylate (Norvasc) 5 mg DAILY PO Last administered on 11/06/16 08: 32; Admin Dose 5 MG; Start 11/01/16 at 09:00 Atorvastatin Calcium (Lipitor) 10 mg DAILY@21 PO Last administered on 20:34; Admin Dose 10 MG; Start 10/31/16 at 23:00 Docusate Sodium (Colace) 100 mg Q12H PRN PO CONSTIPATION; Start 10/31/16 at 23: 00 Famotidine (Pepcid) 20 mg DAILY PO Last administered on 11/06/16 08:27; Admin Dose 20 MG; Start 11/01/16 at 09:00 Heparin Sodium (Porcine) (Heparin (5000 Units/0.5 ml)) 5,000 unit Q12 SC Last administered on 11/06/16 10:03; Admin Dose 5,000 UNIT; Start 10/31/16 at 23:00 Acetaminophen/ Hydrocodone Bitart ([place] (5/325)) 1 tab Q6H PRN PO PAIN Last administered on 11/01/16 08:53; Admin Dose 1 TAB; Start 10/31/16 at 23:00 Megestrol Acetate (Megace Susp) 800 mg DAILY PO Last administered on 11/06/16 08:27; Admin Dose 800 MG; Start 11/01/16 at 09:00 Metoprolol Succinate (Toprol Xl) 50 mg DAILY PO Last administered on 11/06/16 10:05; Admin Dose 50 MG; Start 11/01/16 at 09:00 Docusate Sodium (Colace) 100 mg BID PO Last administered on 11/05/16 20:33; Admin Dose 100 MG; Start 11/01/16 at 09:00 Senna (Senokot) 1 tab HS PO Last administered on 11/05/16 20:34; Admin Dose 1 TAB; Start 11/01/16 at 21:00 Bisacodyl (Dulcolax Supp) 10 mg DAILY PRN [place] CONSTIPATION; Start 11/01/16 at 06 :30 Lactulose (Enulose) 20 gm DAILY PRN PO CONSTIPATION; Start 11/01/16 at 06:30 Acetaminophen/ Hydrocodone Bitart ([place] (5/325)) 2 tab Q4H PRN PO severe pain Last administered on 11/05/16 08:36; Admin Dose 2 TAB; Start 11/01/16 at 11:30 Allopurinol (Zyloprim) 50 mg DAILY PO Last administered on 11/06/16 08:29; Admin Dose 50 MG; Start 11/02/16 at 09:00 Guaifenesin/ Dextromethorphan (Robitussin Dm Liquid Cup) 10 ml Q4H PRN PO COUGH ; Start 11/01/16 at 16:30 Zolpidem Tartrate (Ambien) 10 mg HS PRN PO INSOMNIA Last administered on 21:00; Admin Dose 10 MG; Start 11/01/16 at 22:00 Prednisone (Prednisone) 10 mg DAILY PO Last administered on 11/06/16 08:28; Admin Dose 10 MG; Start 11/05/16 at 09:00 Magnesium Oxide (Mag-Ox 400) 400 mg DAILY PO Last administered on 11/06/16 08: 29; Admin Dose 400 MG; Start 11/05/16 at 09:30 HENRI HUTCHINSON MD Nov 06, 2016 15:29
[2016-11-06 20:00] VITALS: BP 132/74; PULSE 101; RESP 18
[2016-11-06] MEDS: ATORVASTATIN 10 MG TAB PO SCH (20:11)
[2016-11-06] MEDS: HYDROCODONE/APAP (5/325) TAB PO PRN (20:12)
[2016-11-06] MEDS: traZODone 50 MG TAB PO SCH (20:12)
[2016-11-06] MEDS: ZOLPIDEM 5 MG TAB PO PRN (20:17)
[2016-11-06] MEDS: SENNA TAB PO SCH (20:24)
[2016-11-07] MEDS: HYDROCODONE/APAP (5/325) TAB PO PRN ×3 (00:44→09:59)
[2016-11-07] MEDS: morphine 2 MG INJ IV PRN (03:38)
[2016-11-07 07:30] VITALS: BP 155/84; RESP 18
[2016-11-07] MEDS: HEPARIN 5,000 UNIT/0.5 ML SYG SC SCH ×2 (09:00→09:57)
[2016-11-07] MEDS: MEGESTROL (40 MG/ML) 10ML CUP PO SCH ×2 (09:00→09:53)
[2016-11-07] MEDS: DOCUSATE SODIUM 100 MG CAP PO SCH (09:53)
[2016-11-07] MEDS: MAGNESIUM OXIDE 400 MG TAB PO SCH (09:53)
[2016-11-07] MEDS: ALLOPURINOL 100 MG TAB PO SCH (09:54)
[2016-11-07] MEDS: METOPROLOL (XL) 50 MG TAB PO SCH (09:55)
[2016-11-07] MEDS: QUETIAPINE 25 MG TAB PO SCH (09:55)
[2016-11-07] MEDS: MULTIVITAMINS THERAPEUTIC TAB PO SCH (09:55)
[2016-11-07] MEDS: AMLODIPINE 5 MG TAB PO SCH (09:56)
[2016-11-07] MEDS: predniSONE 5 MG TAB PO SCH (09:56)
[2016-11-07] MEDS: QUETIAPINE 100 MG TAB PO SCH (09:56)
[2016-11-07] MEDS: FAMOTIDINE 20 MG TAB PO SCH (09:56)
--- NOTE | 2016-11-07 11:28 | PN ---
DATE: 11/07/201610/2005 SUBJECTIVE: The patient is stable, no acute events overnight. No fevers, chills, nausea/vo miting, no shortness breath. OBJECTIVE: VITAL SIGNS: Blood pressure is 132/74, respirations 18, pulse 101, temperature 98.4. HEENT: Head is normocephalic. NECK: Supple. HEART: Regular rate. LUNGS: Show diminished breath sounds at base. ABDOMEN: Soft, nontender to palpation. No rebound or guarding. EXTREMITIES: Negative for clubbing, cyanosis, no edema. DERMATOLOGIC: No rashes. MUSCULOSKELETAL: The patient has noted deformities of his toe. No change. NEUROLOGIC: No change in exam. MEDICATIONS: The patient's medications have been reviewed. LABORATORY DATA: Have been reviewed. No new labs. ASSESSMENT AND PLAN: 1. Nonoliguric acute kidney injury on top of chronic kidney disease with unknown baseline creatinin e. Etiology secondary to acute tubular necrosis. Renal function continues to improve. Continue royal pportive care, renally dose all medications, avoid nephrotoxins. 2. Anemia, continue to monitor hemoglobin and hematocrit levels. 3. Mineral bone disorder. Continue to monitor calcium and phos levels. 4. Hypomagnesemia. The patient is status post magnesium oxide. Continue to monitor. 5. Bronchitis. The patient is clinically improving, status post antibiotics. 6. Hypertension. Continue current blood pressure regimen. 7. Insomnia. Continue Ambien. Dictated By: HERO LI/FARRAH Conf#: [id number] DID#: [id number]
[2016-11-07] MEDS ORDERED: AL HYDROX/MG HYDROX/SIMETH 30 ML CUP PO PRN (11:30)
--- NOTE | 2016-11-07 17:38 | PN ---
Date/Time of Note Date/Time of Note DATE: 11/07/16 TIME: 1100 Assessment/Plan VTE Prophylaxis VTE Prophylaxis Intervention: SCD's Lines/Catheters IV Catheter Type (from Nrs): Saline Lock Urinary Cath still in place: No Assessment/Plan Chief Complaint/Hosp Course A/P 1. Ftt; Ac tophaceous gouty arthritis; stable, cont pt/ot/ prednisone/ allupurinol Rheumatology has been consulted Pain management as per rheumatology and acute rehab physician 2. ARF, improved. no nsaids 3. Htn Well-controlled on medical management 4. Anemia; Stable continue to monitor 5. Recent Bronchitis; supportive care 6. Depression Continue home meds 7. Dyslipidemia 8. History of nephrolithiasis Patient is medically stable to be discharged home with a close follow-up with primary care physician . Problems: Subjective 24 Hr Interval Summary Free Text/Dictation No acute changes Patient is able to ambulate with minimal assist Exam/Review of Systems Vital Signs Vitals Vital Signs Date Time Temp Pulse Resp B/P Pulse Ox O2 Delivery O2 Flow Rate FiO2 11/07/16 07:30 98.5 97 18 155/84 98 11/06/16 20:00 Room Air Intake and Output 11/06/16 11/06/16 11/07/16 15:00 23:00 07:00 Intake Total 600 ml 360 ml 400 ml Output Total 300 ml 300 ml 500 ml Balance 300 ml 60 ml -100 ml Exam General: The patient is well-developed, Not in acute distress. HEENT: Atraumatic, normocephalic. The pupils are equal and round . Neck: Supple with full range of motion. Chest: Normal expansion of the thorax during inspiration Lungs: Clear to auscultation bilaterally Heart: Normal S1-S2, Regular rhythm and rate. Abdomen: Soft , nontender, nondistended , bowel sounds are present. Extremities: Bilateral hand deformities, no edema no cyanosis Neurologic: Normal mental status,The patient is awake, alert and oriented . Results Result Diagram: 11/05/16 0714 11/05/16 0714 HENRI HUTCHINSON MD Nov 07, 2016 17:38
--- NOTE | 2016-11-09 07:44 | DS ---
DATE OF ADMISSION: 10/31/2016 DATE OF DISCHARGE: 11/07/2016 ADMISSION DIAGNOSES: 1. Gouty arthritis flare affecting multiple joints including bilateral elbows, wrists, knees and fe et with seronegative arthropathy. 2. Bronchitis. 3. Acute on chronic kidney disease. 4. Hypertension. 5. Dyslipidemia. 6. Depression. 7. Orthostatic hypotension. 8. Impairment in self-care and mobility. DISCHARGE DIAGNOSES: 1. Gouty arthritis flare affecting multiple joints including bilateral elbows, wrists, knees and fe et with seronegative arthropathy. 2. Bronchitis. 3. Acute on chronic kidney disease. 4. Hypertension. 5. Dyslipidemia. 6. Depression. 7. Improvement in self-care and mobility. HOSPITAL COURSE: The patient was admitted for comprehensive interdisciplinary acute rehab and made excellent functional gains during the course of the stay. The patient progressed from an initial mo derate assist for self-care and mobility tasks and progressed to the point of supervised to modified independent for all areas of self-care and mobility including ambulation with the use of a front-wh eel walker. The patient is being discharged home with recommendation of home health physical therap y and occupational therapy followup. DISCHARGE MEDICATIONS: Per the medication reconciliation sheet. CONDITION ON DISCHARGE: Stable. Dictated By: REFUGIO ZHANG/FARRAH Conf#: [id number] DID#: [id number]
== END 2016-11-07 12:50 | disposition home health service (06) | DRG 553 ==
LOC: VRC 22:12
PROVIDERS: ADMIT Physical Medicine & Rehabilitation; ATTEND Family Medicine
DX: M1A.9XX1 Chronic gout, unspecified, with tophus (tophi) (principal); N17.0 Acute kidney failure with tubular necrosis; M10.9 Gout, unspecified; I12.9 Hypertensive chronic kidney disease with stage 1 through stage 4 chronic kidney disease, or unspecified chronic kidney disease; N18.9 Chronic kidney disease, unspecified; E78.5 Hyperlipidemia, unspecified; F32.9 Major depressive disorder, single episode, unspecified; I95.1 Orthostatic hypotension; Z74.09 Other reduced mobility; D64.9 Anemia, unspecified; J40 Bronchitis, not specified as acute or chronic; G47.00 Insomnia, unspecified; E83.42 Hypomagnesemia
CPT/HCPCS: 80048; 80053; 81003; 82306; 83735; 84100; 84443; 85025; 85610; 87081; 87086; 95852; 97110; 97112; 97116; 97150; 97162; 97166; 97530; 97535; J2270; J3475; J7512